=== PATIENT | female | born 1990 | race African-American/Black ===

== ENCOUNTER 2017-04-13 14:56 | Emergency (ER) | payer MEDICAID ==
[2017-04-13] MEDS ORDERED: DIPHENHYDRAMINE HCL 25 MG CAPSULE PO ONE (15:23)
[2017-04-13] MEDS ORDERED: PROCHLORPERAZINE MALEATE 10 MG TABLET PO ONE (15:23)
--- NOTE | 2017-04-13 15:25 | ER Document Report ---
ED Medical Screen (RME) - General Chief Complaint: High Blood Pressure Stated Complaint: HIGH BLOOD PRESSURE Time Seen by Provider: 04/13/17 15:20 Notes: This 26-year-old female patient comes emergency room complaining of elevated blood pressure and right-sided headache. She was started on lisinopril 10 mg daily 2 weeks ago by her primary care provider. She had never been on medication before. At that time her blood pressures were running in the 155 systolic range, since then her pressure has remained in the 150 systolic range despite medication. She also has a right temporal headache for the past 3-4 days. The right temporal headache area is tender to palpate. Posterior cervical muscles are not tender. She states she used to get headaches when she was much younger. I have greeted and performed a rapid initial assessment of this patient. A comprehensive ED assessment and evaluation of the patient, analysis of test results and completion of the medical decision making process will be conducted by additional ED providers. TRAVEL OUTSIDE OF THE [place] IN LAST 30 DAYS: No - Related Data Allergies/Adverse Reactions: amoxicillin Allergy (Verified 04/13/17 15:01) ibuprofen [From Motrin] Allergy (Verified 04/13/17 15:01) Past Medical History Renal/ Medical History: Denies: Hx Peritoneal Dialysis Physical Exam - Vital signs Vitals: Temp Pulse Resp BP Pulse Ox 98.5 F 76 14 148/107 H 100 04/13/17 14:59 04/13/17 14:59 04/13/17 14:59 04/13/17 14:59 04/13/17 14:59 Course - Vital Signs Vital signs: Temp Pulse Resp BP Pulse Ox 98.5 F 76 14 148/107 H 100 04/13/17 14:59 04/13/17 14:59 04/13/17 14:59 04/13/17 14:59 04/13/17 14:59
[2017-04-13] MEDS ORDERED: CLONIDINE HCL 0.1 MG TABLET PO ONE (17:08)
[2017-04-13] MEDS ORDERED: OXYCODONE-ACETAMINOPHEN 5-325 MG TABLET PO ONE (17:08)
[2017-04-13 18:32] VITALS: BP 140/83
--- NOTE | 2017-04-13 18:37 | ER Document Report ---
ED Blood Pressure Problem - General Chief Complaint: High Blood Pressure Stated Complaint: HIGH BLOOD PRESSURE Time Seen by Provider: 04/13/17 15:20 Mode of Arrival: Ambulatory Information source: Patient Notes: [facility] [address] [place] [address] ED Medical Screening (RME) Patient Name: LUCI AVILA Date of : 86 Patient Status: Emergency Emergency Provider: HAILEY BETTS Date: 04/13/17 15:23 Initialization Date: 04/13/17 15:23 ED Medical Screen (RME) - General Chief Complaint: High Blood Pressure Stated Complaint: HIGH BLOOD PRESSURE Time Seen by Provider: 04/13/17 15:20 Notes: This 26-year-old female patient comes emergency room complaining of elevated blood pressure and right-sided headache. She was started on lisinopril 10 mg daily 2 weeks ago by her primary care provider. She had never been on medication before. At that time her blood pressures were running in the 155 systolic range, since then her pressure has remained in the 150 systolic range despite medication. She also has a right temporal headache for the past 3-4 days. The right temporal headache area is tender to palpate. Posterior cervical muscles are not tender. She states she used to get headaches when she was much younger. TRAVEL OUTSIDE OF THE [place] IN LAST 30 DAYS: No - Related Data Allergies/Adverse Reactions: amoxicillin Allergy (Verified 04/13/17 15:01) ibuprofen [From Motrin] Allergy (Verified 04/13/17 15:01) Past Medical History Renal/ Medical History: Denies: Hx Peritoneal Dialysis Physical Exam - Vital signs Vitals: Temp Pulse Resp BP Pulse Ox 98.5 F 76 14 148/107 H 100 04/13/17 14:59 04/13/17 14:59 04/13/17 14:59 04/13/17 14:59 04/13/17 14:59 Course - Vital Signs Vital signs: Temp Pulse Resp BP Pulse Ox 98.5 F 76 14 148/107 H 100 04/13/17 14:59 04/13/17 14:59 04/13/17 14:59 04/13/17 14:59 04/13/17 14:59 TRAVEL OUTSIDE OF THE [place] IN LAST 30 DAYS: No - Related Data Allergies/Adverse Reactions: amoxicillin Allergy (Verified 04/13/17 15:01) ibuprofen [From Motrin] Allergy (Verified 04/13/17 15:01) Home Medications: Current Home Medications Lisinopril 1 tab PO DAILY 04/13/17 [History] Past Medical History - General Information source: Patient - Social History Smoking Status: Never Smoker Cigarette use (# per day): No Chew tobacco use (# tins/day): No Smoking Education Provided: No Frequency of alcohol use: None Drug Abuse: None Lives with: Family Family History: Hypertension - Past Medical History Cardiac Medical History: Reports: Hx Hypertension Past Surgical History: Reports: Hx Section - x4, Hx Tubal Ligation Review of Systems - Review of Systems Constitutional: No symptoms reported EENT: No symptoms reported Cardiovascular: No symptoms reported Respiratory: No symptoms reported Gastrointestinal: No symptoms reported Genitourinary: No symptoms reported Female Genitourinary: No symptoms reported Musculoskeletal: No symptoms reported Skin: No symptoms reported Hematologic/Lymphatic: No symptoms reported Neurological/Psychological: See HPI Physical Exam - Vital signs Vitals: Temp Pulse Resp BP Pulse Ox 98.5 F 76 14 148/107 H 100 04/13/17 14:59 04/13/17 14:59 04/13/17 14:59 04/13/17 14:59 04/13/17 14:59 Interpretation: Hypertensive - General General appearance: Appears well, Alert In distress: Mild - HEENT Head: Normocephalic, Atraumatic, Tenderness - Right lateral frontal and temporal scalp palpation tenderness Eyes: Normal Pupils: PERRL Neck: Normal, Supple, Other - Posterior cervical muscles are not tender to palpate - Respiratory Respiratory status: No respiratory distress Chest palpation: Normal - Cardiovascular Rhythm: Regular Heart sounds: Normal auscultation Murmur: No - Abdominal Inspection: Normal Tenderness: Nontender - Back Back: Normal - Extremities General upper extremity: Normal inspection General lower extremity: Normal inspection - Neurological Neuro grossly intact: Yes - Psychological Associated symptoms: Normal affect, Normal mood - Skin Skin Temperature: Warm Skin Moisture: Dry Skin Color: Normal Course - Re-evaluation Re-evalutation: 04/13/17 18:42 The patient was given Compazine and Benadryl. The blood pressure did not come down and the headache did not improve. She is then given 1 Percocet and clonidine 0.1 mg and the pressure did improve and the headache went away entirely. - Vital Signs Vital signs: Temp Pulse Resp BP Pulse Ox 98.8 F 77 16 140/83 H 98 04/13/17 18:31 04/13/17 18:31 04/13/17 18:31 04/13/17 18:31 04/13/17 18:31 Discharge - Discharge Clinical Impression: Tension type headache Qualifiers: Headache chronicity pattern: acute headache Intractability: not intractable Qualified Code(s): G44.209 - Tension-type headache, unspecified, not intractable High blood pressure Qualifiers: Hypertension type: essential hypertension Qualified Code(s): I10 - Essential ( primary) hypertension Condition: Stable Disposition: HOME, SELF-CARE Additional Instructions: Headache: The physician does not feel that the headache you are experiencing has a serious underlying cause. Most headaches are due to emotional stress, with resultant muscle tension (tension headache). Occasionally, headaches are secondary to changes in the blood vessels of the scalp (vascular headache and migraine headache). Sometimes, a headache is the first symptom of another developing illness, such as a viral infection. You have no evidence of stroke, bleeding, meningitis, or other serious cause of your headache. The treatment of headaches varies with the severity and cause of the pain. Not all headaches need pain shots. In fact, there is evidence that using narcotics for headaches may make them worse in the long run. The physician will determine the therapy that's in your best interest. If you develop a fever, if the headache is different from any you've previously experienced, or if the headache progressively worsens, then call your physician at once or go to the emergency room. Take Tylenol for your headache if needed. Rest today. Take an additional dose of your lisinopril when you get home. Take 2 of the lisinopril every morning and check your blood pressure throughout the day. Follow-up with your doctor this week if the blood pressure remains elevated, otherwise follow-up in the next 7-10 days. RETURN TO THE EMERGENCY ROOM IF ANY NEW OR WORSENING SYMPTOMS.
== END 2017-04-13 18:46 | disposition home or self-care (01) ==
LOC: ER 14:56
DX: I10 Essential (primary) hypertension (principal); G44.209 Tension-type headache, unspecified, not intractable; Z79.899 Other long term (current) drug therapy
CPT/HCPCS: 99283; J3490 ×2; S0183

== ENCOUNTER 2017-05-09 16:29 | Emergency (ER) | payer SELFPAY ==
[2017-05-09] MEDS ORDERED: ASPIRIN 325 MG TABLET PO ONE (16:50)
--- NOTE | 2017-05-09 16:53 | ER Document Report ---
ED Medical Screen (RME) - General Chief Complaint: Chest Pain Stated Complaint: HIGH BLOOD PRESSURE, CHEST PAIN HEADACHE Time Seen by Provider: 05/09/17 16:50 Mode of Arrival: Ambulatory Information source: Patient TRAVEL OUTSIDE OF THE [place] IN LAST 30 DAYS: No - HPI Patient complains to provider of: CP/HTN Onset: This morning - Pt with h/o HTN had elevated BP ealrier today when she had it checked at pharmacy. She went home to lay down and had CP when she woke up - Related Data Allergies/Adverse Reactions: amoxicillin Allergy (Verified 05/09/17 16:33) ibuprofen [From Motrin] Allergy (Verified 05/09/17 16:33) Past Medical History - Past Medical History Cardiac Medical History: Reports: Hx Hypertension Renal/ Medical History: Denies: Hx Peritoneal Dialysis Past Surgical History: Reports: Hx Section - x4, Hx Tubal Ligation Physical Exam - Vital signs Vitals: Temp Pulse Resp BP Pulse Ox 98.5 F 65 18 140/87 H 100 05/09/17 16:33 05/09/17 16:33 05/09/17 16:33 05/09/17 16:33 05/09/17 16:33 Course - Vital Signs Vital signs: Temp Pulse Resp BP Pulse Ox 98.5 F 65 18 140/87 H 100 05/09/17 16:33 05/09/17 16:33 05/09/17 16:33 05/09/17 16:33 05/09/17 16:33
[2017-05-09] MEDS ORDERED: ONDANSETRON 4 MG TAB.RAPDIS PO ONE (17:10)
[2017-05-09 17:29] LABS: ABSOLUTE BASOPHILS # (AUTO) 0.1 10^3/uL (0.0-0.2); ABSOLUTE EOSINOPHILS # (AUTO) 0.7 10^3/uL (0.0-0.6); ABSOLUTE LYMPHOCYTES (AUTO) 2.6 10^3/uL (0.5-4.7); ABSOLUTE MONOCYTES (AUTO) 0.4 10^3/uL (0.1-1.4); ABSOLUTE NEUT (AUTO) 2.4 10^3/uL (1.7-8.2); BASOPHILS % (AUTO) 0.9 % (0-2); EOSINOPHILS % (AUTO) 12.1 % (0-6); HEMATOCRIT 36.1 % (36.0-47.0); HEMOGLOBIN 11.5 g/dL (12.0-15.5); HGB HCT DIFFERENCE -1.6; LYMPHOCYTES % (AUTO) 41.7 % (13-45); MEAN CORPUSCULAR HEMOGLOBIN 23.9 pg (27.0-33.4); MEAN CORPUSCULAR HGB CONC 31.8 g/dL (32.0-36.0); MEAN CORPUSCULAR VOLUME 75 fl (80-97); MONOCYTES % (AUTO) 6.3 % (3-13); RED BLOOD COUNT 4.81 10^6/uL (3.72-5.28); RED CELL DISTRIBUTION WIDTH 18.5 % (11.5-14.0); WHITE BLOOD COUNT 6.1 10^3/uL (4.0-10.5)
[2017-05-09 17:41] LABS: ALANINE AMINOTRANSFERASE 25 U/L (9-52); ALBUMIN 4.3 g/dL (3.5-5.0); ALKALINE PHOSPHATASE 102 U/L (38-126); ANION GAP 12 (5-19); APPEARANCE,URINE CLEAR; ASPARTATE AMINO TRANSFERASE 15 U/L (14-36); BILIRUBIN,DIRECT 0.3 mg/dL (0.0-0.4); BILIRUBIN,TOTAL 0.3 mg/dL (0.2-1.3); BILIRUBIN,URINE NEGATIVE (NEGATIVE); BLOOD UREA NITROGEN 8 mg/dL (7-20); CALCIUM 9.2 mg/dL (8.4-10.2); CARBON DIOXIDE 24 mmol/L (22-30); CHLORIDE 104 mmol/L (98-107); CREATINE KINASE 118 U/L (30-135); CREATININE RESULT 0.79 mg/dL (0.52-1.25); GLUCOSE 87 mg/dL (75-110); GLUCOSE, URINE NEGATIVE (NEGATIVE); KETONES,URINE NEGATIVE (NEGATIVE); LEUKOCYTE ESTERASE,URINE NEGATIVE (NEGATIVE); NITRITE,URINE NEGATIVE (NEGATIVE); POTASSIUM 4.3 mmol/L (3.6-5.0); PROTEIN,URINE 30 mg/dL (NEGATIVE); SODIUM 140.2 mmol/L (137-145); TOTAL PROTEIN 7.2 g/dL (6.3-8.2); URINE SPECIFIC GRAVITY 1.027; UROBILINOGEN,URINE NEGATIVE mg/dL (<2.0)
[2017-05-09 17:56] LABS: CREATINE KINASE MB 0.23 ng/mL (<4.55)
[2017-05-09 18:02] LABS: TROPONIN I < 0.012 ng/mL
--- NOTE | 2017-05-09 18:04 | RADIOLOGY REPORT (SQ) ---
EXAM DESCRIPTION: CHEST PA/LAT COMPLETED DATE/TIME: 05/09/2017 5:27 pm REASON FOR STUDY: CP COMPARISON: None. EXAM PARAMETERS: NUMBER OF VIEWS: two views TECHNIQUE: Digital Frontal and Lateral radiographic views of the chest acquired. RADIATION DOSE: NA LIMITATIONS: The lateral view is mildly over penetrated. FINDINGS: LUNGS AND PLEURA: No opacities, masses or pneumothorax. No pleural effusion. MEDIASTINUM AND HILAR STRUCTURES: No masses or contour abnormalities. HEART AND VASCULAR STRUCTURES: Heart normal size. No evidence for failure. BONES: No acute findings. HARDWARE: None in the chest. OTHER: No other significant finding. IMPRESSION: NO SIGNIFICANT RADIOGRAPHIC FINDING IN THE CHEST. TECHNICAL DOCUMENTATION: JOB ID: [id number] [employer]- All Rights Reserved
--- NOTE | 2017-05-09 18:20 | ER Document Report ---
ED Cardiac - General Chief Complaint: Chest Pain Stated Complaint: HIGH BLOOD PRESSURE, CHEST PAIN HEADACHE Time Seen by Provider: 05/09/17 16:50 Mode of Arrival: Ambulatory Notes: The patient is a 26-year-old female, past medical history high blood pressure, presents with several complaints. She was having a dull frontal headache[facility]. She saw that it was 160/90 and came to the emergency room. She also felt a mild right upper chest wall pain She is taking her 20 mg of lisinopril and has an appointment with her primary care physician in 2 days. The chest pain and headache have resolved on my evaluation. The patient denies shortness of breath, back pain, leg swelling, OCP use, fevers, cough, hemoptysis, numbness, tingling, focal weakness, neck stiffness or blurry vision. TRAVEL OUTSIDE OF THE [place] IN LAST 30 DAYS: No - Related Data Allergies/Adverse Reactions: amoxicillin Allergy (Verified 05/09/17 16:33) ibuprofen [From Motrin] Allergy (Verified 05/09/17 16:33) Past Medical History - General Information source: Patient - Social History Smoking Status: Never Smoker Chew tobacco use (# tins/day): No Frequency of alcohol use: None Drug Abuse: None Family History: Hypertension - Past Medical History Cardiac Medical History: Reports: Hx Hypertension Renal/ Medical History: Denies: Hx Peritoneal Dialysis Past Surgical History: Reports: Hx Section - x4, Hx Tubal Ligation Review of Systems - Review of Systems Notes: REVIEW OF SYSTEMS: CONSTITUTIONAL: -fevers, -chills EENT: -eye pain, -difficulty swallowing, -nasal congestion CARDIOVASCULAR: +chest pain, -syncope. RESPIRATORY: -cough, -SOB GASTROINTESTINAL: -abdominal pain, - nausea, -vomiting, -diarrhea GENITOURINARY: -dysuria, -hematuria MUSCULOSKELETAL: -back pain, -neck pain SKIN: -rash or skin lesions. HEMATOLOGIC: -easy bruising or bleeding. LYMPHATIC: -swollen, enlarged glands. NEUROLOGICAL: -altered mental status or loss of consciousness, +headache, - neurologic symptoms PSYCHIATRIC: -anxiety, -depression. ALL OTHER SYSTEMS REVIEWED AND NEGATIVE. Physical Exam - Vital signs Vitals: Temp Pulse Resp BP Pulse Ox 98.5 F 65 18 140/87 H 100 05/09/17 16:33 05/09/17 16:33 05/09/17 16:33 05/09/17 16:33 05/09/17 16:33 - Notes Notes: PHYSICAL EXAMINATION: GENERAL: Well-appearing, well-nourished and in no acute distress. HEAD: Atraumatic, normocephalic. EYES: Pupils equal round and reactive to light, extraocular movements intact, sclera anicteric, conjunctiva are normal. ENT: nares patent, oropharynx clear without exudates. Moist mucous membranes. NECK: Normal range of motion, supple without lymphadenopathy LUNGS: Breath sounds clear to auscultation bilaterally and equal. No wheezes rales or rhonchi. HEART: Regular rate and rhythm without murmurs ABDOMEN: Soft, nontender, normoactive bowel sounds. No guarding, no rebound. No masses appreciated. EXTREMITIES: Normal range of motion, no pitting or edema. No cyanosis. NEUROLOGICAL: Cranial nerves grossly intact. Normal speech, normal gait. Normal sensory and motor exams. PSYCH: Normal mood, normal affect. SKIN: Warm, Dry, normal turgor, no rashes or lesions noted. Course - Re-evaluation Re-evalutation: Patient appears very well. She is currently asymptomatic at this time and her blood pressure is 140/87. She has an appointment with her primary care physician this week and instructed her to bring in a blood pressure log to discuss if she needs to add any new medications. Her HEART score is 1 and she is PERC negative. Headache does not appear to be consistent with meningitis, ICH or SAH at this time due to benign nature. Given strict return precautions and she understands. - Vital Signs Vital signs: Temp Pulse Resp BP Pulse Ox 98.2 F 61 18 150/94 H 100 05/09/17 18:23 05/09/17 18:23 05/09/17 18:23 05/09/17 18:23 05/09/17 18:23 - Laboratory Result Diagrams: 05/09/17 17:10 05/09/17 17:10 Laboratory results interpreted by me: 05/09/17 05/09/17 17:10 17:10 Hgb 11.5 L MCV 75 L MCH 23.9 L MCHC 31.8 L RDW 18.5 H Seg Neutrophils % 39.0 L Eosinophils % 12.1 H Absolute Eosinophils 0.7 H Urine Protein 30 H - Diagnostic Test Radiology reviewed: Image reviewed, Reports reviewed Radiology results interpreted by me: CXR: NAD - EKG Interpretation by Me EKG shows normal: Sinus rhythm, [place], Intervals, QRS Complexes, ST-T Waves Rate: Normal Discharge - Discharge Clinical Impression: Chest pain Qualifiers: Chest pain type: unspecified Qualified Code(s): R07.9 - Chest pain, unspecified Headache Qualifiers: Headache type: unspecified Headache chronicity pattern: unspecified pattern Intractability: not intractable Qualified Code(s): R51 - Headache Hypertension Qualifiers: Hypertension type: unspecified Qualified Code(s): I10 - Essential (primary) hypertension Condition: Stable Disposition: HOME, SELF-CARE Additional Instructions: CHEST PAIN OF UNCLEAR CAUSE: The exact cause of your chest pain isn't clear. Fortunately, there is no evidence of a dangerous medical condition. Further testing may be required to find the source of the pain. Most often, we find that this pain is coming from the chest wall -- the muscles or rib joints in the chest. But chest pain can come from the lung and lung lining, the esophagus, the heart valves or heart lining, and even the stomach or gallbladder. Rest. Eat lightly until the pain is gone. We may prescribe medicine for pain and inflammation. You should call the physician immediately if the pain radiates to the shoulder, jaw or arms; if you start to run a fever or develop a cough; or if you develop shortness of breath, or other new or alarming symptoms. NORMAL EXAM AND WORKUP: At this time, your examination and workup show no significant abnormality. No significant abnormal physical findings were noted. All laboratory, EKG, and imaging (x-ray, CT scans, ultrasound) studies that were ordered show no significant abnormality. Although your examination and all studies that were ordered showed no significant abnormal finding, there are no examinations and no studies that are 100% accurate. There is always the possibility that some abnormality could exist and not be detected with physical examination or within the limits and capabilities of laboratory and other studies. You should return or follow up as you were instructed on your visit today for further evaluation if your symptoms do not resolve. CHEST WALL PAIN: Your chest pain may be coming from the chest wall. This is often caused by straining the muscles or joints in the chest during physical activity, direct trauma, coughing, or vigorous vomiting. Persons with arthritis are especially prone to this type of pain, due to inflammation of the cartilage joints near the breast bone. Occasionally, no cause can be found. Rest from strenuous physical activity. This kind of chest pain is usually made worse by movement of the chest. Depending on the symptoms, we may prescribe medicine for pain, muscle relaxation, and antiinflammatory effects. If the pain is new, and seems to be due to muscle strain, cold packs can help. Otherwise, apply gentle warmth to the painful area for 15 minutes every hour or two. You should call contact the doctor immediately if things change. Further evaluation is needed if you develop a fever or cough, if the nature of the pain changes, or if you become short of breath. FOLLOW-UP CARE: If you have been referred to a physician for follow-up care, call the physician s office for an appointment as you were instructed or within the next two days. If you experience worsening or a significant change in your symptoms, notify the physician immediately or return to the Emergency Department at any time for re-evaluation. HEADACHE: The physician does not feel that the headache you are experiencing has a serious underlying cause. Most headaches are due to emotional stress, with resultant muscle tension (tension headache). Occasionally, headaches are secondary to changes in the blood vessels of the scalp (vascular headache and migraine headache). Sometimes, a headache is the first symptom of another developing illness, such as a viral infection. You have no evidence of stroke, bleeding, meningitis, or other serious cause of your headache. The treatment of headaches varies with the severity and cause of the pain. Not all headaches need pain shots. In fact, there is evidence that using narcotics for headaches may make them worse in the long run. The physician will determine the therapy that's in your best interest. If you develop a fever, if the headache is different from any you've previously experienced, or if the headache progressively worsens, then call your physician at once or go to the emergency room. FOLLOW-UP CARE: If you have been referred to a physician for follow-up care, call the physician s office for an appointment as you were instructed or within the next two days. If you experience worsening or a significant change in your symptoms, notify the physician immediately or return to the Emergency Department at any time for re-evaluation. Forms: Elevated Blood Pressure Referrals: COTY,RAMONA R, PA-C [Primary Care Provider] - Follow up as needed
[2017-05-09 18:25] VITALS: BP 150/94
--- NOTE | 2017-05-09 20:12 | EKG REPORT ---
SEVERITY:- BORDERLINE ECG - SINUS RHYTHM BORDERLINE T ABNORMALITIES, INFERIOR LEADS : Confirmed by: Hakan Wharton MD 09-May-2017 20:12:06
== END 2017-05-09 18:25 | disposition home or self-care (01) ==
LOC: ER 16:29
DX: R07.9 Chest pain, unspecified (principal); R51 Headache; I10 Essential (primary) hypertension; Z88.0 Allergy status to penicillin; Z98.51 Tubal ligation status
CPT/HCPCS: 93005; 99285; 36415; 82553; 82550; 85025; 81025; 80053; 81001; 84484; 71020; 93010; S0119

== ENCOUNTER 2017-07-16 23:43 | Emergency (ER) | payer MEDICAID ==
[2017-07-17] MEDS ORDERED: LIDOCAINE 2% JELLY 5 ML TUBE TOP ONE (00:22)
[2017-07-17] MEDS ORDERED: DOCUSATE SODIUM 100 MG CAPSULE PO ONE (00:23)
--- NOTE | 2017-07-17 00:24 | ER Document Report ---
ED General - General Chief Complaint: Rectal Pain Stated Complaint: RECTAL PAIN Time Seen by Provider: 07/17/17 00:01 Notes: Patient is a 26-year-old female who presents with rectal pain. Does describe a dull, constant, aching pain to the rectum. Patient states this started after she had a bowel movement. She noted some blood on the toilet paper and when she felt near her anus she states that she felt to bumps that "should not be there". Denies history of similar symptoms in the past. Admits to often straining when having bowel movements. She has not tried anything to improve her pain. She denies any attempt to have a bowel movement or touching area worsens the pain. She has not seen a primary care doctor regarding today's concerns. She denies any significant quantity of bleeding. TRAVEL OUTSIDE OF THE [place] IN LAST 30 DAYS: No - Related Data Allergies/Adverse Reactions: amoxicillin Allergy (Verified 07/16/17 23:53) ibuprofen [From Motrin] Allergy (Verified 07/16/17 23:53) Past Medical History - General Information source: Patient - Social History Smoking Status: Never Smoker Frequency of alcohol use: None Drug Abuse: None Lives with: Spouse/Significant other Family History: Hypertension Patient has suicidal ideation: No Patient has homicidal ideation: No - Past Medical History Cardiac Medical History: Reports: Hx Hypertension Renal/ Medical History: Denies: Hx Peritoneal Dialysis Past Surgical History: Reports: Hx Section - x4, Hx Tubal Ligation Review of Systems - Review of Systems Notes: Constitutional: Negative for fever. HENT: Negative for sore throat. Eyes: Negative for visual changes. Cardiovascular: Negative for chest pain. Respiratory: Negative for shortness of breath. Gastrointestinal: Positive for rectal pain Genitourinary: Negative for dysuria. Musculoskeletal: Negative for back pain. Skin: Negative for rash. Neurological: Negative for headaches, weakness or numbness. 10 point ROS negative except as marked above and in HPI. Physical Exam - Vital signs Vitals: Temp Pulse Resp BP Pulse Ox 97.9 F 77 16 148/86 H 98 07/16/17 23:48 07/16/17 23:48 07/16/17 23:48 07/16/17 23:48 07/16/17 23:48 Interpretation: Normal Notes: PHYSICAL EXAMINATION: GENERAL: Well-appearing, well-nourished and in no acute distress. HEAD: Atraumatic, normocephalic. EYES: sclera anicteric, conjunctiva are normal. ENT: Moist mucous membranes. NECK: Normal range of motion LUNGS: Normal work of breathing HEART: 2+ radial pulses bilaterally Abdominal exam: No focal tenderness or rebound Rectal: 2 external nonthrombosed hemorrhoids without active bleeding EXTREMITIES: no pitting or edema. No cyanosis. NEUROLOGICAL: No focal neurological deficits. Moves all extremities spontaneously and on command. PSYCH: Normal mood, normal affect. SKIN: Warm, Dry, normal turgor, no rashes or lesions noted. Course - Re-evaluation Re-evalutation: 07/17/17 00:23 Presentation is most consistent with uncomplicated external hemorrhoids. No significant bleeding by history. Patient's abdominal exam is otherwise benign. I do not suspect a more significant lower GI bleed or upper GI bleed based on history, vitals, normal hemoglobin, and patient's overall well appearance. The patient will be discharged home on conservative treatment recommendations as well as recommendations for close outpatient follow-up. Return precautions have been reviewed. - Vital Signs Vital signs: Temp Pulse Resp BP Pulse Ox 98.7 F 88 18 114/65 98 07/17/17 00:34 07/17/17 00:34 07/17/17 00:34 07/17/17 00:34 07/17/17 00:34 Discharge - Discharge Clinical Impression: External hemorrhoids Condition: Good Disposition: HOME, SELF-CARE Additional Instructions: You were seen today for hemorrhoids. The best treatment is to avoid straining while having bowel moments, avoiding heavy lifting, or any other activity that causes you to bear down forcefully. You need to make sure that your stools are soft and should start taking Docusate 200mg in the morning and at night until your stools are very soft and you can have a bowel movement without any straining. You can also soak in warm water, apply topical hemorrhoid cream that can be purchased at the store, and take tylenol or ibuprofen per box instructions as needed for pain. Please follow-up with your primary doctor. Return if you begin to have persistent bleeding, worsening pain, abdominal pain , fever >101, or any other symptoms that are concerning to you. Referrals: EVIE AUGUSTIN MD [Primary Care Provider] - Follow up as needed
[2017-07-17 00:35] VITALS: BP 114/65
== END 2017-07-17 00:34 | disposition home or self-care (01) ==
LOC: ER 23:43
DX: K64.4 Residual hemorrhoidal skin tags (principal); K62.89 Other specified diseases of anus and rectum; I10 Essential (primary) hypertension; Z88.0 Allergy status to penicillin; Z88.6 Allergy status to analgesic agent
CPT/HCPCS: 99283; J3490 ×2

== ENCOUNTER 2017-07-30 11:31 | Inpatient (IN) | payer MEDICAID ==
[2017-07-30] MEDS ORDERED: IPRATROPIUM/ALBUTEROL 0.5-2.5 MG/3 ML AMPUL NEB ONE ×2 (12:09→14:57)
[2017-07-30] MEDS ORDERED: PREDNISONE 20 MG TABLET PO ONE (12:09)
[2017-07-30] MEDS ORDERED: ACETAMINOPHEN 325 MG TABLET PO ONE (12:10)
--- NOTE | 2017-07-30 12:11 | ER Document Report ---
HPI - HPI Patient complains to provider of: Cough, difficulty breathing, weakness Onset: Last week Onset/Duration: Worse Quality of pain: Achy Pain Level: 4 Context: Patient presents complaining of nonproductive cough for the past week. Patient states today she developed frontal headache pain with coughing. Patient complains of decreased sleep due to the coughing. Patient also reports anterior chest discomfort with coughing only. Patient denies any chest pain if she is not coughing. Patient denies any history of asthma but states her child does have asthma. Associated Symptoms: Chest pain - With coughing, Nonproductive cough, Headache, Rhinnorhea, Shortness of breath, Weakness. denies: Fever, Nausea, Vomiting Exacerbated by: Coughing Relieved by: Denies Similar symptoms previously: No Recently seen / treated by doctor: No - ROS ROS below otherwise negative: Yes Systems Reviewed and Negative: Yes All other systems reviewed and negative - CONSTITUTIONAL Constitutional: DENIES: Fever - EENT EENT: REPORTS: Nasal Drainage-Clear, Congestion - NEURO Neurology: REPORTS: Headache, Weakness - CARDIOVASCULAR Cardiovascular: REPORTS: Chest pain - RESPIRATORY Respiratory: REPORTS: Trouble Breathing, Coughing - GASTROINTESTINAL Gastrointestinal: DENIES: Abdominal Pain, Nausea, Patient vomiting - MUSCULOSKELETAL Musculoskeletal: DENIES: Extremity pain, Back Pain - DERM Skin Color: Normal Skin Problems: None Past Medical History - General Information source: Patient - Social History Smoking Status: Never Smoker Frequency of alcohol use: None Drug Abuse: None Occupation: None Lives with: Family Family History: Hypertension - Past Medical History Cardiac Medical History: Reports: Hx Hypertension Denies: Hx DVT, Hx Pulmonary Embolism Pulmonary Medical History: Denies: Hx Asthma Renal/ Medical History: Denies: Hx Peritoneal Dialysis Past Surgical History: Reports: Hx Section - x4, Hx Tubal Ligation Vertical Provider Document - CONSTITUTIONAL Agree With Documented VS: Yes Exam Limitations: No Limitations General Appearance: Mild Distress - INFECTION CONTROL TRAVEL OUTSIDE OF THE [place] IN LAST 30 DAYS: No - HEENT HEENT: Atraumatic, Normal ENT Exam, Normocephalic - NECK Neck: Normal Inspection, Supple. negative: Lymphadenopathy-Left, Lymphadenopathy-Right - RESPIRATORY Respiratory: No Respiratory Distress, Wheezing. negative: Chest Non-Tender - Anterior chest wall tenderness only with coughing O2 Sat by Pulse Oximetry: 98 - CARDIOVASCULAR Cardiovascular: Regular Rate, Regular Rhythm, No Murmur - GI/ABDOMEN Gastrointestinal: Abdomen Soft, Abdomen Non-Tender - BACK Back: Normal Inspection - MUSCULOSKELETAL/EXTREMETIES Musculoskeletal/Extremeties: MAEW - NEURO Level of Consciousness: Awake, Alert, Appropriate Motor/Sensory: No Motor Deficit - DERM Integumentary: Warm Course - Re-evaluation Re-evalutation: 07/30/17 15:07 HR 117 97%, 98.7, 148/87, 28. Patient complains of continued cough with wheezing and feeling weak. Patient's resting heart [id number]. Patient was ambulated 20 feet in the hallway in her heart rate increased to the 140s and the patient became dyspneic and complained of increased weakness. Patient returned to room in additional labs and medications ordered. Consulted with Dr. Mcgraw regarding patient presentation, he advises giving patient IV fluids as well as a magnesium and then reevaluated with possible consideration for admission. 07/30/17 16:[address] Day who agrees to accept patient as a telemetry admission - Vital Signs Vital signs: Temp Pulse Resp BP Pulse Ox 99.0 F 106 H 20 138/97 H 98 07/30/17 11:35 07/30/17 11:35 07/30/17 11:35 07/30/17 11:35 07/30/17 11:35 - Laboratory Result Diagrams: 07/30/17 15:36 07/30/17 15:36 Laboratory results interpreted by me: 07/30/17 16:57 Labs- Entire Visit 07/30/17 07/30/17 07/30/17 15:36 15:36 15:36 WBC 10.4 RBC 4.83 Hgb 11.7 L Hct 35.5 L MCV 74 L MCH 24.2 L MCHC 32.9 RDW 17.3 H Plt Count 223 Total Counted 100 Seg Neutrophils % Not Reportable Seg Neuts % (Manual) 92 H Band Neutrophils % 1 L Lymphocytes % Not Reportable Lymphocytes % (Manual) 3 L Monocytes % Not Reportable Monocytes % (Manual) 3 Eosinophils % Not Reportable Eosinophils % (Manual) 0 Basophils % Not Reportable Basophils % (Manual) 1 Absolute Neutrophils Not Reportable Abs Neuts (Manual) 9.7 H Absolute Lymphocytes Not Reportable Abs Lymphs (Manual) 0.3 L Absolute Monocytes Not Reportable Abs Monocytes (Manual) 0.3 Absolute Eosinophils Not Reportable Absolute Eos (Manual) 0.0 Absolute Basophils Not Reportable Abs Basophils (Manual) 0.1 Toxic Granulation SLIGHT Platelet Comment ADEQUATE Hypochromasia 1+ Poikilocytosis SLIGHT Anisocytosis 1+ Microcytosis 1+ Ovalocytes 1+ D-Dimer Sodium 139.9 Potassium 3.3 L Chloride 108 H Carbon Dioxide 18 L Anion Gap 14 BUN 9 Creatinine 0.86 Est GFR ( Amer) > 60 Est GFR (Non-Af Amer) > 60 Glucose 103 Calcium 9.2 Magnesium 1.6 Total Bilirubin 0.3 Direct Bilirubin 0.3 Neonat Total Bilirubin Not Reportable Neonat Direct Bilirubin Not Reportable Neonat Indirect Bili Not Reportable AST 16 ALT 21 Alkaline Phosphatase 102 Total Protein 6.7 Albumin 4.0 Serum HCG, Qual NEGATIVE 07/30/17 15:36 WBC RBC Hgb Hct MCV MCH MCHC RDW Plt Count Total Counted Seg Neutrophils % Seg Neuts % (Manual) Band Neutrophils % Lymphocytes % Lymphocytes % (Manual) Monocytes % Monocytes % (Manual) Eosinophils % Eosinophils % (Manual) Basophils % Basophils % (Manual) Absolute Neutrophils Abs Neuts (Manual) Absolute Lymphocytes Abs Lymphs (Manual) Absolute Monocytes Abs Monocytes (Manual) Absolute Eosinophils Absolute Eos (Manual) Absolute Basophils Abs Basophils (Manual) Toxic Granulation Platelet Comment Hypochromasia Poikilocytosis Anisocytosis Microcytosis Ovalocytes D-Dimer 0.27 Sodium Potassium Chloride Carbon Dioxide Anion Gap BUN Creatinine Est GFR ( Amer) Est GFR (Non-Af Amer) Glucose Calcium Magnesium Total Bilirubin Direct Bilirubin Neonat Total Bilirubin Neonat Direct Bilirubin Neonat Indirect Bili AST ALT Alkaline Phosphatase Total Protein Albumin Serum HCG, Qual - Diagnostic Test Radiology reviewed: Reports reviewed Discharge - Discharge Clinical Impression: Hypokalemia, Tachycardia Upper respiratory infection Qualifiers: URI type: unspecified URI Qualified Code(s): J06.9 - Acute upper respiratory infection, unspecified Dyspnea Qualifiers: Dyspnea type: unspecified Qualified Code(s): R06.00 - Dyspnea, unspecified Disposition: ADMITTED OBSERVATION Admitting Provider: Hospitalist Unit Admitted: Telemetry
[2017-07-30] MEDS: ALBUTEROL SULFATE 0.083% NEB 2.5 MG/3 ML AMPUL NEB SCH ×2 (13:08→13:40)
--- NOTE | 2017-07-30 13:20 | RADIOLOGY REPORT (SQ) ---
EXAM DESCRIPTION: CHEST PA/LAT COMPLETED DATE/TIME: 07/30/2017 1:04 pm REASON FOR STUDY: cough COMPARISON: None. EXAM PARAMETERS: NUMBER OF VIEWS: two views TECHNIQUE: Digital Frontal and Lateral radiographic views of the chest acquired. RADIATION DOSE: NA LIMITATIONS: none FINDINGS: LUNGS AND PLEURA: No opacities, masses or pneumothorax. No pleural effusion. MEDIASTINUM AND HILAR STRUCTURES: No masses or contour abnormalities. HEART AND VASCULAR STRUCTURES: Heart normal size. No evidence for failure. BONES: No acute findings. HARDWARE: None in the chest. OTHER: No other significant finding. IMPRESSION: NO SIGNIFICANT RADIOGRAPHIC FINDING IN THE CHEST. TECHNICAL DOCUMENTATION: JOB ID: [id number] [employer]- All Rights Reserved
--- NOTE | 2017-07-30 13:29 | EKG REPORT ---
SEVERITY:- ABNORMAL ECG - SINUS RHYTHM CONSIDER LEFT VENTRICULAR HYPERTROPHY BORDERLINE T ABNORMALITIES, INFERIOR LEADS : Confirmed by: Hakan Wharton MD 30-Jul-2017 13:28:09
[2017-07-30] MEDS ORDERED: NORMAL SALINE 1000 ML 1,000 ML IV ONE (14:56)
[2017-07-30] MEDS: MAGNESIUM SULFATE/D5W 1 GM/100 ML RTUPB IV SCH ×2 (15:40→16:53)
[2017-07-30] MEDS ORDERED: BENZONATATE 100 MG CAPSULE PO ONE (15:47)
[2017-07-30 16:01] LABS: HEMATOCRIT 35.5 % (36.0-47.0); HEMOGLOBIN 11.7 g/dL (12.0-15.5); HGB HCT DIFFERENCE -0.4; MEAN CORPUSCULAR HEMOGLOBIN 24.2 pg (27.0-33.4); MEAN CORPUSCULAR HGB CONC 32.9 g/dL (32.0-36.0); MEAN CORPUSCULAR VOLUME 74 fl (80-97); RED BLOOD COUNT 4.83 10^6/uL (3.72-5.28); RED CELL DISTRIBUTION WIDTH 17.3 % (11.5-14.0); WHITE BLOOD COUNT 10.4 10^3/uL (4.0-10.5)
[2017-07-30 16:14] LABS: ALANINE AMINOTRANSFERASE 21 U/L (9-52); ALKALINE PHOSPHATASE 102 U/L (38-126); ANION GAP 14 (5-19); ASPARTATE AMINO TRANSFERASE 16 U/L (14-36); BILIRUBIN,DIRECT 0.3 mg/dL (0.0-0.4); BILIRUBIN,TOTAL 0.3 mg/dL (0.2-1.3); BLOOD UREA NITROGEN 9 mg/dL (7-20); CALCIUM 9.2 mg/dL (8.4-10.2); CARBON DIOXIDE 18 mmol/L (22-30); CHLORIDE 108 mmol/L (98-107); CREATININE RESULT 0.86 mg/dL (0.52-1.25); GLUCOSE 103 mg/dL (75-110); MAGNESIUM 1.6 mg/dL (1.6-2.3); POTASSIUM 3.3 mmol/L (3.6-5.0); SODIUM 139.9 mmol/L (137-145); TOTAL PROTEIN 6.7 g/dL (6.3-8.2)
[2017-07-30 16:26] LABS: ANISOCYTOSIS 1+; BAND NEUTROPHILS % (MANUAL) 1 % (3-5); BASOPHILS % (MANUAL) 1 % (0-2); EOSINOPHILS % (MANUAL) 0 % (0-6); HYPOCHROMASIA 1+; LYMPHOCYTES % (MANUAL) 3 % (13-45); MICROCYTOSIS 1+; OVALOCYTES 1+; POIKILOCYTOSIS SLIGHT; TOTAL CELLS COUNTED 100; TOXIC GRANULATION SLIGHT
[2017-07-30] MEDS ORDERED: POTASSIUM CHLORIDE 10 MEQ TABLET.SA PO ONE ×2 (16:52→20:15)
[2017-07-30] MEDS ORDERED: ACETAMINOPHEN 325 MG TABLET PO PRN (17:54)
[2017-07-30 18:00] LABS: APPEARANCE,URINE SLIGHTLY-CLOUDY; BILIRUBIN,URINE NEGATIVE (NEGATIVE); GLUCOSE, URINE NEGATIVE (NEGATIVE); KETONES,URINE 20 mg/dL (NEGATIVE); LEUKOCYTE ESTERASE,URINE NEGATIVE (NEGATIVE); NITRITE,URINE NEGATIVE (NEGATIVE); PROTEIN,URINE NEGATIVE (NEGATIVE); URINE SPECIFIC GRAVITY 1.009; UROBILINOGEN,URINE NEGATIVE mg/dL (<2.0)
[2017-07-30] MEDS ORDERED: ALPRAZOLAM 0.5 MG TABLET PO ONE (18:30)
--- NOTE | 2017-07-30 18:32 | PDOC H&P ---
History of Present Illness Admission Date/PCP: 07/30/17 17:16 Patient complains of: Shortness of breath and wheezing History of Present Illness: LUCI AVILA is a 26 year old female presents to the emergency department from home with a one-week history of dry hacking cough. Today however her symptoms took a turn for the worse, when she awoke she was audibly wheezing and having much more difficulty breathing. She was having hot and cold sweats with chills. She reports sharp, stabbing left calf pain that she felt was a "cramp" with some associated transient swelling in the calf that is now resolved. She reports global dull aching headache it is worse with position and cough and constant and no associated symptoms of numbness, tingling, vision or hearing changes. She reports no sick contacts in spite of 6 children at home everyone is healthy. She does not get vaccinations including flu shot and she has never had influenza before. She does not smoke and she has no history of asthma or childhood asthma. She has no history of chronic infections as a child. She is not on hormone replacement therapy she is undergone a tubal ligation in the past. She underwent 4 previously and did not have any difficulty awakening from anesthesia or extubation after the procedure. she reports no noxious or chemical exposures. she has no reflux, heartburn, GERD symptoms. she denies nocturnal symptoms, night sweats, swollen glands and exposure to TB. She reports starting lisinopril in February of this year at 20 mg for control of her hypertension. She had not previously been treated pharmaceutically for hypertension. There is no family history of clotting disorder or bleeding diathesis. Asthma does run in the family. Evaluation in the emergency department shows her to be tachypneic, tachycardic but without hypoxia. She had audible wheezing that has been difficult to control with nebulizers 4 and prednisone 40 mg. Furthermore she failed to "walk test" she took just a few steps in the hallway and became so breathless and coughing and wheezing again that she had to be helped back to bed. As a result we were asked to admit her for further evaluation and management. EKG shows a sinus tachycardia without prolongation of her QT interval and without ischemic changes. Chest x-ray also looks clear. Past Medical History Cardiac Medical History: Reports: Hypertension Denies: Congestive Heart Failure, Coronary Artery Disease, DVT, Pulmonary Embolism, Heart Murmur Pulmonary Medical History: Denies: Asthma, Sleep Apnea Endocrine Medical History: Denies: None Past Surgical History Past Surgical History: Reports: Section - x4, Tubal Ligation Social History Information Source: Patient Lives with: Family Smoking Status: Never Smoker Frequency of Alcohol Use: None Hx Recreational Drug Use: No Drugs: None Hx Prescription Drug Abuse: No - Advance Directive Resuscitation Status: Full Code Family History Family History: DM, Hypertension, Other - Asthma, clotting disorder, bleeding diathesis Parental Family History Reviewed: Yes Children Family History Reviewed: Yes Sibling(s) Family History Reviewed.: Yes Medication/Allergy Home Medications: Lisinopril 2 tab PO DAILY 04/13/17 Allergies/Adverse Reactions: amoxicillin Allergy (Verified 07/30/17 11:33) ibuprofen [From Motrin] Allergy (Verified 07/30/17 11:33) Review of Systems All systems: reviewed and no additional remarkable complaints except as stated - All systems reviewed, see above, remaining systems negative. Physical Exam Vital Signs: Temp Pulse Resp BP Pulse Ox 98.7 F 114 H 21 H 138/92 H 97 07/30/17 14:50 07/30/17 14:50 07/30/17 17:30 07/30/17 17:30 07/30/17 17:30 General appearance: PRESENT: mild distress, obese, well-developed, well- nourished Head exam: PRESENT: atraumatic, normocephalic Eye exam: PRESENT: EOMI, PERRLA. ABSENT: conjunctival injection, scleral icterus Mouth exam: PRESENT: moist, neck supple, other - No oral lesions Throat exam: ABSENT: post pharyngeal erythema, tonsillar erythema, tonsillar exudate Neck exam: PRESENT: full ROM. ABSENT: carotid bruit, JVD, lymphadenopathy, meningismus, tenderness, tracheal deviation Respiratory exam: PRESENT: accessory muscle use, crackles - Diffuse, tachypnea, wheezes. ABSENT: stridor Cardiovascular exam: PRESENT: RRR, tachycardia. ABSENT: systolic murmur Pulses: PRESENT: normal radial pulses Vascular exam: PRESENT: normal capillary refill GI/Abdominal exam: PRESENT: normal bowel sounds, soft. ABSENT: tenderness Extremities exam: ABSENT: calf tenderness - No palpable cords, pedal edema, tenderness Musculoskeletal exam: PRESENT: ambulatory, full ROM Neurological exam: PRESENT: alert, awake, oriented to person, oriented to place , oriented to time, oriented to situation Psychiatric exam: PRESENT: appropriate affect, normal mood Skin exam: PRESENT: dry, warm Results Laboratory Results: 07/30/17 15:36 07/30/17 15:36 MCV 74 fl (80-97) L 07/30/17 15:36 MCH 24.2 pg (27.0-33.4) L 07/30/17 15:36 MCHC 32.9 g/dL (32.0-36.0) 07/30/17 15:36 RDW 17.3 % (11.5-14.0) H 07/30/17 15:36 Seg Neutrophils % Not Reportable 07/30/17 15:36 Lymphocytes % Not Reportable 07/30/17 15:36 Monocytes % Not Reportable 07/30/17 15:36 Eosinophils % Not Reportable 07/30/17 15:36 Basophils % Not Reportable 07/30/17 15:36 Absolute Neutrophils Not Reportable 07/30/17 15:36 Absolute Lymphocytes Not Reportable 07/30/17 15:36 Absolute Monocytes Not Reportable 07/30/17 15:36 Absolute Eosinophils Not Reportable 07/30/17 15:36 Absolute Basophils Not Reportable 07/30/17 15:36 Chloride 108 mmol/L (98-107) H 07/30/17 15:36 Carbon Dioxide 18 mmol/L (22-30) L 07/30/17 15:36 Anion Gap 14 (5-19) 07/30/17 15:36 Est GFR ( Amer) > 60 (>60) 07/30/17 15:36 Est GFR (Non-Af Amer) > 60 (>60) 07/30/17 15:36 Glucose 103 mg/dL (75-110) 07/30/17 15:36 Calcium 9.2 mg/dL (8.4-10.2) 07/30/17 15:36 Magnesium 1.6 mg/dL (1.6-2.3) 07/30/17 15:36 Total Bilirubin 0.3 mg/dL (0.2-1.3) 07/30/17 15:36 AST 16 U/L (14-36) 07/30/17 15:36 ALT 21 U/L (9-52) 07/30/17 15:36 Alkaline Phosphatase 102 U/L (38-126) 07/30/17 15:36 Total Protein 6.7 g/dL (6.3-8.2) 07/30/17 15:36 Albumin 4.0 g/dL (3.5-5.0) 07/30/17 15:36 Serum HCG, Qual NEGATIVE (NEGATIVE) 07/30/17 15:36 Impressions: Chest X-Ray 07/30/17 12:09 IMPRESSION: NO SIGNIFICANT RADIOGRAPHIC FINDING IN THE CHEST. Status: Image reviewed by me - Agree with radiology Assessment & Plan - Diagnosis (1) Upper respiratory infection Qualifiers: URI type: unspecified URI Qualified Code(s): J06.9 - Acute upper respiratory infection, unspecified Is this a current diagnosis for this admission?: Yes Plan: She is behaving as though she has an atypical pneumonia. Will start her empirically on Zithromax, systemic steroids, continue nebs. I do not like the way she is breathing with hx of sudden change, transient left calf swelling/ pain and in spite of normal ddimer I feel compelled to ck CTA chest to r/o PE; this will also get a look at lung parenchyma for infiltrates, inflammation or other causes of her dysnpea. screen for influenza but she isn't making enough sputum to collect for culture. will send blood cultures. (2) Metabolic acidosis Is this a current diagnosis for this admission?: Yes Plan: likely related to rapid breathing/tachypnea; will send lactic acid and hydrate with IVFs and monitor again in am (3) Microcytic anemia Is this a current diagnosis for this admission?: Yes Plan: likely Fe deficient; will ck iron studies to confirm. no evidence for acute blood loss. (4) Hypokalemia Is this a current diagnosis for this admission?: Yes Plan: replace and monitor. she was given IV mag in ED for her resp status. (5) Tachycardia Is this a current diagnosis for this admission?: Yes Plan: unclear etiology, likely related to the above; treat as noted above and f/u tests ordered. ck BNP and if markedly elevated may need echo at some point though I truly believe the cta chest is going to answer all questions. (6) HTN (hypertension), benign Is this a current diagnosis for this admission?: Yes Plan: elevated right now due to her distress. hold her ACEi due to development of dry hacking cough, treat with amlodopine or chlorthalidone. - Time Time Spent: 50 to 70 Minutes Medications reviewed and adjusted accordingly: Yes - Inpatient Certification Based on my medical assessment, after consideration of the patient's comorbidities, presenting symptoms, or acuity I expect that the services needed warrant INPATIENT care.: Yes I certify that my determination is in accordance with my understanding of Medicare's requirements for reasonable and necessary INPATIENT services [42 CFR 412.3e].: Yes Medical Necessity: Need For IV Fluids, Need For Continuous Telemetry Monitoring , Need for Nebulizer Therapy and Monitoring of Response, Need for IV Antibiotics , Risk of Complication if Not Cared For in Hospital
[2017-07-30] MEDS ORDERED: AZITHROMYCIN 500 MG in DEXTROSE 5%-WATER 250 ML IV ONE (19:00)
[2017-07-30] MEDS: NORMAL SALINE 1000 ML 1,000 ML IV PRN (19:34)
[2017-07-30] MEDS: ALBUTEROL SULFATE 0.083% NEB 2.5 MG/3 ML AMPUL NEB PRN (19:57)
--- NOTE | 2017-07-30 20:12 | RADIOLOGY REPORT (SQ) ---
EXAM DESCRIPTION: CTA CHEST COMPLETED DATE/TIME: 07/30/2017 7:16 pm REASON FOR STUDY: COUGH, CP COMPARISON: None. TECHNIQUE: CT scan of the chest performed using helical scanning technique with dynamic intravenous contrast injection. Images reviewed with lung, soft tissue and bone windows. Reconstructed coronal and sagittal MPR images reviewed. Additional 3 dimensional post-processing performed to develop Maximal Intensity Projection images (NH P). All images stored on PACS. All CT scanners at this facility use dose modulation, iterative reconstruction, and/or weight based d osing when appropriate to reduce radiation dose to as low as reasonably achievable (ALARA). [facility]: Dose Right [facility]: CareDose [facility]: Dose Right [facility]: Teradose 4D [facility]: ShowMe CONTRAST TYPE AND DOSE: contrast/concentration: Isovue 370.00 mg/ml; Total Contrast Delivered: 87.0 ml; Total Saline Delivered: 50.0 ml Contrast bolus optimized for the pulmonary arteries. Not diagnostic for the aorta. RENAL FUNCTION: None required. The patient is less than 50 years old. RADIATION DOSE: . LIMITATIONS: None. FINDINGS: LUNGS AND PLEURA: Tree-in-bud opacities involving the posterior basal segments of the righ t greater than left lower lobes compatible with infectious or inflammatory bronchiolitis. No large c onsolidation, pleural effusion, or pneumothorax. AORTA AND GREAT VESSELS: No aneurysm. Contrast bolus not optimized for the aorta. HEART: No pericardial effusion. No significant coronary artery calcifications. PULMONARY ARTERIES: No emboli visualized in the main pulmonary arteries or the segmental branches. HILAR AND MEDIASTINAL STRUCTURES: No identified masses or abnormal nodes. HARDWARE: None in the chest. UPPER ABDOMEN: No significant findings. Limited exam. THYROID AND OTHER SOFT TISSUES: Apparent right thyroid nodule measuring 2.8 cm. Soft tissues otherwi se normal. BONES: No acute or significant finding. 3D MIPS: Confirm above findings. OTHER: No other significant finding. IMPRESSION: NO PULMONARY EMBOLI. TREE-IN-BUD OPACITIES INVOLVING THE RIGHT GREATER THAN LEFT LOWER LOBES COMPATIBLE WITH INFECTIOUS OR INFLAMMATORY BRONCHIOLITIS. 2.8 CM RIGHT THYROID NODULE. RECOMMEND FURTHER CHARACTERIZATION WITH THYROID ULTRASOUND. COMMENT: Quality ID # [id number]: Final reports with documentation of one or more dose reduction techniques (e.g., Automated exposure control, adjustment of the mA and/or kV according to patient size, use of iterative reconstruction technique) TECHNICAL DOCUMENTATION: JOB ID: [id number] [employer]- All Rights Reserved
[2017-07-30] MEDS: METHYLPREDNISOLONE INJ 40 MG/1 ML SDV IV SCH (21:43)
[2017-07-30] MEDS: AMLODIPINE BESYLATE 10 MG TABLET PO SCH (21:43)
[2017-07-30] MEDS: IPRATROPIUM/ALBUTEROL 0.5-2.5 MG/3 ML AMPUL NEB PRN (22:49)
[2017-07-30] MEDS ORDERED: ONDANSETRON HCL INJ/PF 4 MG/2 ML SDV ONE (23:02)
[2017-07-30] MEDS ORDERED: ONDANSETRON HCL INJ/PF 4 MG/2 ML SDV IV PRN (23:03)
[2017-07-31] MEDS: ALPRAZOLAM 0.5 MG TABLET PO PRN ×2 (03:45→17:46)
[2017-07-31] MEDS: ALBUTEROL SULFATE 0.083% NEB 2.5 MG/3 ML AMPUL NEB PRN ×2 (03:49→22:40)
[2017-07-31] MEDS: METHYLPREDNISOLONE INJ 40 MG/1 ML SDV IV SCH ×3 (05:24→22:22)
[2017-07-31] MEDS: NORMAL SALINE 1000 ML 1,000 ML IV PRN ×2 (05:26→17:47)
[2017-07-31 07:12] LABS: HEMATOCRIT 33.8 % (36.0-47.0); HEMOGLOBIN 11.3 g/dL (12.0-15.5); HGB HCT DIFFERENCE 0.1; MEAN CORPUSCULAR HEMOGLOBIN 24.7 pg (27.0-33.4); MEAN CORPUSCULAR HGB CONC 33.6 g/dL (32.0-36.0); MEAN CORPUSCULAR VOLUME 74 fl (80-97); RED BLOOD COUNT 4.59 10^6/uL (3.72-5.28); RED CELL DISTRIBUTION WIDTH 17.4 % (11.5-14.0); WHITE BLOOD COUNT 8.9 10^3/uL (4.0-10.5)
[2017-07-31 07:30] LABS: ANION GAP 11 (5-19); BLOOD UREA NITROGEN 5 mg/dL (7-20); CALCIUM 8.9 mg/dL (8.4-10.2); CARBON DIOXIDE 20 mmol/L (22-30); CHLORIDE 108 mmol/L (98-107); CREATININE RESULT 0.67 mg/dL (0.52-1.25); GLUCOSE 121 mg/dL (75-110); MAGNESIUM 2.1 mg/dL (1.6-2.3); SODIUM 139.1 mmol/L (137-145)
[2017-07-31 08:26] LABS: ANISOCYTOSIS 2+; BASOPHILS % (MANUAL) 0 % (0-2); EOSINOPHILS % (MANUAL) 0 % (0-6); HYPOCHROMASIA SLIGHT; LYMPHOCYTES % (MANUAL) 7 % (13-45); OVALOCYTES SLIGHT; POIKILOCYTOSIS SLIGHT; TOTAL CELLS COUNTED 100
[2017-07-31 08:35] LABS: FOLATE 9.24 ng/mL (>2.76)
[2017-07-31 08:47] LABS: POTASSIUM 4.5 mmol/L (3.6-5.0)
[2017-07-31] MEDS: AZITHROMYCIN 500 MG in DEXTROSE 5%-WATER 250 ML IV SCH (09:42)
[2017-07-31] MEDS: IPRATROPIUM/ALBUTEROL 0.5-2.5 MG/3 ML AMPUL NEB PRN ×2 (09:48→17:25)
--- NOTE | 2017-07-31 17:57 | PDOC PROGRESS REPORT ---
Subjective Progress Note for:: 07/31/17 Subjective:: This is a follow-up for acute respiratory failure. The patient feels much better and her breathing today. Reason For Visit: ATYPICAL PNEUMONIA Physical Exam Vital Signs: Temp Pulse Resp BP Pulse Ox 98.3 F 83 20 132/74 H 100 07/31/17 15:56 07/31/17 15:56 07/31/17 15:56 07/31/17 15:56 07/31/17 15:56 Intake & Output 07/30/17 07/31/17 08/01/17 06:59 06:59 06:59 Intake Total 1240 1300 Output Total 300 Balance 940 1300 Weight 94.1 kg GENERAL: This is a well-developed well-nourished overweight -[place] female resting in bed currently in no acute distress. HEART: Regular rate and rhythm. No murmurs, rubs or gallops. LUNGS: Diminished at the bases bilaterally with rare right lower lung crackles with equal rise and fall of the chest. ABDOMEN: Soft, nontender, nondistended with normoactive bowel sounds EXTREMETIES: No clubbing, cyanosis or edema. 2+ peripheral pulses bilaterally. NEURO: Awake, alert and oriented 3. Cranial nerves II through XII are grossly intact. Results Laboratory Results: 07/31/17 06:30 07/31/17 06:30 07/30/17 07/30/17 07/30/17 17:32 18:45 21:16 WBC RBC Hgb Hct MCV MCH MCHC RDW Plt Count Seg Neutrophils % Lymphocytes % Monocytes % Eosinophils % Basophils % Absolute Neutrophils Absolute Lymphocytes Absolute Monocytes Absolute Eosinophils Absolute Basophils Sodium Potassium Chloride Carbon Dioxide Anion Gap BUN Creatinine Est GFR ( Amer) Est GFR (Non-Af Amer) Glucose Lactic Acid 3.2 H Calcium Magnesium 2.0 Iron TIBC % Saturation Vitamin B12 Folate Urine Color YELLOW Urine Appearance SLIGHTLY-CLOUDY Urine pH 6.0 Ur Specific [place] 1.009 Urine Protein NEGATIVE Urine Glucose (UA) NEGATIVE Urine Ketones 20 H Urine Blood NEGATIVE Urine Nitrite NEGATIVE Ur Leukocyte Esterase NEGATIVE Urine WBC (Auto) 2 Urine RBC (Auto) 1 07/31/17 07/31/17 06:30 06:30 WBC 8.9 RBC 4.59 Hgb 11.3 L Hct 33.8 L MCV 74 L MCH 24.7 L MCHC 33.6 RDW 17.4 H Plt Count 240 Seg Neutrophils % Not Reportable Lymphocytes % Not Reportable Monocytes % Not Reportable Eosinophils % Not Reportable Basophils % Not Reportable Absolute Neutrophils Not Reportable Absolute Lymphocytes Not Reportable Absolute Monocytes Not Reportable Absolute Eosinophils Not Reportable Absolute Basophils Not Reportable Sodium 139.1 Potassium 4.5 D Chloride 108 H Carbon Dioxide 20 L Anion Gap 11 BUN 5 L Creatinine 0.67 Est GFR ( Amer) > 60 Est GFR (Non-Af Amer) > 60 Glucose 121 H Lactic Acid Calcium 8.9 Magnesium 2.1 Iron 11.7 L TIBC 410 % Saturation 3 Vitamin B12 625.0 Folate 9.24 Urine Color Urine Appearance Urine pH Ur Specific [place] Urine Protein Urine Glucose (UA) Urine Ketones Urine Blood Urine Nitrite Ur Leukocyte Esterase Urine WBC (Auto) Urine RBC (Auto) Impressions: Chest/Abdomen CTA 07/30/17 00:00 IMPRESSION: NO PULMONARY EMBOLI. TREE-IN-BUD OPACITIES INVOLVING THE RIGHT GREATER THAN LEFT LOWER LOBES COMPATIBLE WITH INFECTIOUS OR INFLAMMATORY BRONCHIOLITIS. 2.8 CM RIGHT THYROID NODULE. RECOMMEND FURTHER CHARACTERIZATION WITH THYROID ULTRASOUND. Chest X-Ray 07/30/17 12:09 IMPRESSION: NO SIGNIFICANT RADIOGRAPHIC FINDING IN THE CHEST. Assessment & Plan - Diagnosis (1) Dyspnea Qualifiers: Dyspnea type: unspecified Qualified Code(s): R06.00 - Dyspnea, unspecified Plan: Likely due to upper respiratory infection. Patient has no documented low sats. She is currently on oxygen and satting well. (2) HTN (hypertension), benign Is this a current diagnosis for this admission?: Yes Plan: Continue current medicines (3) Hypokalemia Is this a current diagnosis for this admission?: Yes Plan: Replaced and resolved. (4) Metabolic acidosis Is this a current diagnosis for this admission?: Yes Plan: Repeat lactic acid in the morning. (5) Microcytic anemia Is this a current diagnosis for this admission?: Yes (6) Upper respiratory infection Qualifiers: URI type: unspecified URI Qualified Code(s): J06.9 - Acute upper respiratory infection, unspecified Is this a current diagnosis for this admission?: Yes Plan: Patient is on empiric antibiotics. This is probably not unreasonable. Continue azithromycin. Continue Solu-Medrol at a decreased frequency of every 12. - Time Time Spent with patient: 15-24 minutes
--- NOTE | 2017-07-31 22:04 | RADIOLOGY REPORT (SQ) ---
EXAM DESCRIPTION: U/S THYROID/SFT TISS HD NECK COMPLETED DATE/TIME: 07/31/2017 9:46 pm REASON FOR STUDY: thyroid nodule COMPARISON: CT chest 07/30/2017 TECHNIQUE: Dynamic and static headley-scale images acquired of the thyroid gland. Selected additional c olor/power Doppler images recorded. All images stored to PACS. LIMITATIONS: None. FINDINGS: Thyroid is diffusely enlarged. There is a dominant complex nodule in the lower pole right lobe thyroid measuring 3 cm in diameter. This is along the lower pole thyroid, developed cold to completely included in the field of view abe use of the medial clavicle and thoracic inlet. Aspiration of this lesion is recommended. Overall, the right lobe thyroid measures at least 6 x 4 x 3 cm in size. Left lobe thyroid 5 x 4 x 2.2 cm in size. Isthmus 6 mm in thickness. IMPRESSION: Dominant mass right lower pole thyroid. Given the patient's age, fine-needle aspirate o f this is recommended TECHNICAL DOCUMENTATION: JOB ID: [id number] [employer]- All Rights Reserved
[2017-07-31] MEDS: AMLODIPINE BESYLATE 10 MG TABLET PO SCH (22:22)
[2017-08-01 05:56] LABS: ABSOLUTE LYMPHOCYTES (AUTO) 0.7 10^3/uL (0.5-4.7); ABSOLUTE MONOCYTES (AUTO) 0.5 10^3/uL (0.1-1.4); ABSOLUTE NEUT (AUTO) 8.3 10^3/uL (1.7-8.2); BASOPHILS % (AUTO) 0.1 % (0-2); HEMATOCRIT 35.4 % (36.0-47.0); HEMOGLOBIN 11.4 g/dL (12.0-15.5); HGB HCT DIFFERENCE -1.2; LYMPHOCYTES % (AUTO) 7.2 % (13-45); MEAN CORPUSCULAR HEMOGLOBIN 23.9 pg (27.0-33.4); MEAN CORPUSCULAR HGB CONC 32.3 g/dL (32.0-36.0); MEAN CORPUSCULAR VOLUME 74 fl (80-97); MONOCYTES % (AUTO) 5.1 % (3-13); RED BLOOD COUNT 4.78 10^6/uL (3.72-5.28); RED CELL DISTRIBUTION WIDTH 17.5 % (11.5-14.0); SEGMENTED NEUTROPHILS % (AUTO) 87.6 % (42-78); WHITE BLOOD COUNT 9.4 10^3/uL (4.0-10.5)
[2017-08-01 06:27] LABS: ANION GAP 10 (5-19); BLOOD UREA NITROGEN 6 mg/dL (7-20); CALCIUM 8.9 mg/dL (8.4-10.2); CARBON DIOXIDE 23 mmol/L (22-30); CHLORIDE 107 mmol/L (98-107); CREATININE RESULT 0.69 mg/dL (0.52-1.25); GLUCOSE 103 mg/dL (75-110); POTASSIUM 4.4 mmol/L (3.6-5.0); SODIUM 139.8 mmol/L (137-145)
[2017-08-01] MEDS: NORMAL SALINE 1000 ML 1,000 ML IV PRN ×2 (06:58→22:12)
[2017-08-01] MEDS: IPRATROPIUM/ALBUTEROL 0.5-2.5 MG/3 ML AMPUL NEB PRN (09:48)
[2017-08-01] MEDS: METHYLPREDNISOLONE INJ 40 MG/1 ML SDV IV SCH ×2 (11:01→22:13)
[2017-08-01] MEDS: AZITHROMYCIN 500 MG in DEXTROSE 5%-WATER 250 ML IV SCH (11:02)
--- NOTE | 2017-08-01 12:55 | PDOC PROGRESS REPORT ---
Subjective Progress Note for:: 08/01/17 Subjective:: Pt states that she has been short of breath for 2-3 weeks. Pt states that her breathing is better but she becomes very short of breath with exertion. Pt states that multiple family members have Asthma but she has never been diagnosed with asthma. Reason For Visit: ATYPICAL PNEUMONIA Physical Exam Vital Signs: Temp Pulse Resp BP Pulse Ox 97.8 F 66 21 H 133/86 H 100 08/01/17 07:32 08/01/17 09:48 08/01/17 09:48 08/01/17 07:32 08/01/17 07:32 Intake & Output 07/31/17 08/01/17 08/02/17 06:59 06:59 06:59 Intake Total 1240 3258 Output Total 300 300 Balance 940 2958 Weight 94.1 kg 94.1 kg General appearance: PRESENT: no acute distress, well-developed, well-nourished Head exam: PRESENT: atraumatic, normocephalic Eye exam: PRESENT: conjunctiva pink, EOMI, PERRLA. ABSENT: scleral icterus Ear exam: PRESENT: normal external ear exam Mouth exam: PRESENT: moist, tongue midline Neck exam: ABSENT: carotid bruit, JVD, lymphadenopathy, thyromegaly Respiratory exam: PRESENT: other - Prolonged Exp phase, + Wheezing, + prolonged Exp phase. Cardiovascular exam: PRESENT: RRR. ABSENT: diastolic murmur, rubs, systolic murmur Pulses: PRESENT: normal dorsalis pedis pul Vascular exam: PRESENT: normal capillary refill GI/Abdominal exam: PRESENT: normal bowel sounds, soft. ABSENT: distended, guarding, mass, organolmegaly, rebound, tenderness Rectal exam: PRESENT: deferred Extremities exam: PRESENT: full ROM. ABSENT: calf tenderness, clubbing, pedal edema Neurological exam: PRESENT: alert, awake, oriented to person, oriented to place , oriented to time, oriented to situation, CN II-XII grossly intact. ABSENT: motor sensory deficit Psychiatric exam: PRESENT: appropriate affect, normal mood. ABSENT: homicidal ideation, suicidal ideation Skin exam: PRESENT: dry, intact, warm. ABSENT: cyanosis, rash Results Laboratory Results: 08/01/17 05:12 08/01/17 05:12 12/02/17 12/02/17 12/02/17 05:12 05:12 05:12 WBC 9.4 RBC 4.78 Hgb 11.4 L Hct 35.4 L MCV 74 L MCH 23.9 L MCHC 32.3 RDW 17.5 H Plt Count 256 Seg Neutrophils % 87.6 H Lymphocytes % 7.2 L Monocytes % 5.1 Eosinophils % 0.0 Basophils % 0.1 Absolute Neutrophils 8.3 H Absolute Lymphocytes 0.7 Absolute Monocytes 0.5 Absolute Eosinophils 0.0 Absolute Basophils 0.0 Sodium 139.8 Potassium 4.4 Chloride 107 Carbon Dioxide 23 Anion Gap 10 BUN 6 L Creatinine 0.69 Est GFR ( Amer) > 60 Est GFR (Non-Af Amer) > 60 Glucose 103 Calcium 8.9 Magnesium 2.0 TSH 0.05 L Impressions: Chest/Abdomen CTA 07/30/17 00:00 IMPRESSION: NO PULMONARY EMBOLI. TREE-IN-BUD OPACITIES INVOLVING THE RIGHT GREATER THAN LEFT LOWER LOBES COMPATIBLE WITH INFECTIOUS OR INFLAMMATORY BRONCHIOLITIS. 2.8 CM RIGHT THYROID NODULE. RECOMMEND FURTHER CHARACTERIZATION WITH THYROID ULTRASOUND. Chest X-Ray 07/30/17 12:09 IMPRESSION: NO SIGNIFICANT RADIOGRAPHIC FINDING IN THE CHEST. Thyroid Ultrasound 07/31/17 00:00 IMPRESSION: Dominant mass right lower pole thyroid. Given the patient's age, fine-needle aspirate of this is recommended Assessment & Plan - Diagnosis (1) Acute respiratory failure Is this a current diagnosis for this admission?: Yes Plan: Secondary for Suspected Asthma Exacerbation: Will change albuterol Q4, steroids , and antibiotics. Will add Levaquin. (2) Reactive airway disease with wheezing Is this a current diagnosis for this admission?: Yes Plan: Suspect Asthma Exacerbation: Will continue breathing treatments, antibiotics, and steroids. (3) Dyspnea Qualifiers: Dyspnea type: unspecified Qualified Code(s): R06.00 - Dyspnea, unspecified Is this a current diagnosis for this admission?: Yes Plan: Secondary to Suspected Asthma Exacerbation: Steroids, albuterol, and antibiotics. (4) HTN (hypertension), benign Is this a current diagnosis for this admission?: Yes Plan: Will continue current treatment. - Time Time Spent with patient: 15-24 minutes
[2017-08-01] MEDS ORDERED: LEVOFLOXACIN 500 MG TABLET PO ONE ×2 (13:00→16:30)
[2017-08-01] MEDS: IPRATROPIUM/ALBUTEROL 0.5-2.5 MG/3 ML AMPUL NEB SCH ×2 (13:59→20:18)
[2017-08-01] MEDS: ALPRAZOLAM 0.5 MG TABLET PO PRN (20:51)
[2017-08-01] MEDS: AMLODIPINE BESYLATE 10 MG TABLET PO SCH (22:13)
[2017-08-02] MEDS: IPRATROPIUM/ALBUTEROL 0.5-2.5 MG/3 ML AMPUL NEB SCH ×3 (02:32→14:00)
[2017-08-02 05:13] LABS: ABSOLUTE LYMPHOCYTES (AUTO) 1.1 10^3/uL (0.5-4.7); ABSOLUTE MONOCYTES (AUTO) 0.3 10^3/uL (0.1-1.4); ABSOLUTE NEUT (AUTO) 7.5 10^3/uL (1.7-8.2); BASOPHILS % (AUTO) 0.3 % (0-2); EOSINOPHILS % (AUTO) 0.2 % (0-6); HEMATOCRIT 36.3 % (36.0-47.0); HGB HCT DIFFERENCE -0.3; LYMPHOCYTES % (AUTO) 12.6 % (13-45); MEAN CORPUSCULAR HEMOGLOBIN 24.3 pg (27.0-33.4); MEAN CORPUSCULAR VOLUME 74 fl (80-97); MONOCYTES % (AUTO) 3.4 % (3-13); RED BLOOD COUNT 4.92 10^6/uL (3.72-5.28); RED CELL DISTRIBUTION WIDTH 18.1 % (11.5-14.0); SEGMENTED NEUTROPHILS % (AUTO) 83.5 % (42-78)
[2017-08-02 08:00] LABS: ALANINE AMINOTRANSFERASE 28 U/L (9-52); ALBUMIN 3.6 g/dL (3.5-5.0); ALKALINE PHOSPHATASE 75 U/L (38-126); ANION GAP 10 (5-19); ASPARTATE AMINO TRANSFERASE 15 U/L (14-36); BILIRUBIN,DIRECT 0.3 mg/dL (0.0-0.4); BILIRUBIN,TOTAL 0.3 mg/dL (0.2-1.3); BLOOD UREA NITROGEN 8 mg/dL (7-20); CALCIUM 9.1 mg/dL (8.4-10.2); CARBON DIOXIDE 24 mmol/L (22-30); CHLORIDE 104 mmol/L (98-107); GLUCOSE 102 mg/dL (75-110); POTASSIUM 4.3 mmol/L (3.6-5.0); SODIUM 138.4 mmol/L (137-145); TOTAL PROTEIN 6.4 g/dL (6.3-8.2)
[2017-08-02] MEDS ORDERED: LEVOFLOXACIN 500 MG TABLET PO SCH (10:00)
[2017-08-02] MEDS: AZITHROMYCIN 500 MG in DEXTROSE 5%-WATER 250 ML IV SCH (10:10)
[2017-08-02] MEDS: METHYLPREDNISOLONE INJ 40 MG/1 ML SDV IV SCH (10:10)
[2017-08-02] MEDS ORDERED: GUAIFENESIN SYRP 200 MG/10 ML UDC PO PRN (11:56)
[2017-08-02 17:48] VITALS: BP 146/93
--- NOTE | 2017-08-02 18:46 | PDOC DISCHARGE SUMMARY ---
General - Admit/Disc Date/PCP Admission Date/Primary Care Provider: 07/30/17 17:16 - Discharge Diagnosis (1) Dyspnea Is this a current diagnosis for this admission?: Yes Summary: Resolved. Patient did not have acute respiratory failure as she never dropped her O2 sats. (2) HTN (hypertension), benign Is this a current diagnosis for this admission?: Yes Summary: Continue lisinopril and now Norvasc. (3) Hypokalemia Is this a current diagnosis for this admission?: Yes Summary: Replaced and resolved. (4) Metabolic acidosis Is this a current diagnosis for this admission?: Yes Summary: Resolved (5) Microcytic anemia Is this a current diagnosis for this admission?: Yes Summary: Stable (6) Upper respiratory infection Is this a current diagnosis for this admission?: Yes Summary: Finish antibiotics. (7) Reactive airway disease with wheezing Is this a current diagnosis for this admission?: Yes Summary: Continue steroid taper. Continue Levaquin to completion. Follow-up with PCP. - Additional Information Resuscitation Status: Full Code Discharge Diet: As Tolerated Discharge Activity: Activity As Tolerated, Balance Activity w/Rest Home Medications: Lisinopril 2 tab PO DAILY 04/13/17 Amlodipine Besylate [Norvasc 10 mg Tablet] 10 mg PO QHS #30 tablet 08/02/17 Ipratropium/Albuterol Sulfate [Combivent Inhaler] 14.7 gm IH QID #1 aer.w.adap 08/02/17 Levofloxacin [Levaquin 500 mg Tablet] 500 mg PO DAILY #3 tablet 08/02/17 Prednisone 20 mg PO ASDIR PRN #15 tablet 08/02/17 History of Present Illness History of Present Illness: LUCI AVILA is a 26 year old -[place] female with no past medical history who presented to the service with upper respiratory infection and likely acute asthma. Please see the HPI as dictated by the admitting physician. Admission Date/PCP: 07/30/17 17:16 Patient complains of: Shortness of breath and wheezing History of Present Illness: LUCI AVILA is a 26 year old female presents to the emergency department from home with a one-week history of dry hacking cough. Today however her symptoms took a turn for the worse, when she awoke she was audibly wheezing and having much more difficulty breathing. She was having hot and cold sweats with chills. She reports sharp, stabbing left calf pain that she felt was a "cramp" with some associated transient swelling in the calf that is now resolved. She reports global dull aching headache it is worse with position and cough and constant and no associated symptoms of numbness, tingling, vision or hearing changes. She reports no sick contacts in spite of 6 children at home everyone is healthy. She does not get vaccinations including flu shot and she has never had influenza before. She does not smoke and she has no history of asthma or childhood asthma. She has no history of chronic infections as a child. She is not on hormone replacement therapy she is undergone a tubal ligation in the past. She underwent 4 previously and did not have any difficulty awakening from anesthesia or extubation after the procedure. she reports no noxious or chemical exposures. she has no reflux, heartburn, GERD symptoms. she denies nocturnal symptoms, night sweats, swollen glands and exposure to TB. She reports starting lisinopril in February of this year at 20 mg for control of her hypertension. She had not previously been treated pharmaceutically for hypertension. There is no family history of clotting disorder or bleeding diathesis. Asthma does run in the family. Evaluation in the emergency department shows her to be tachypneic, tachycardic but without hypoxia. She had audible wheezing that has been difficult to control with nebulizers 4 and prednisone 40 mg. Furthermore she failed to "walk test" she took just a few steps in the hallway and became so breathless and coughing and wheezing again that she had to be helped back to bed. As a result we were asked to admit her for further evaluation and management. EKG shows a sinus tachycardia without prolongation of her QT interval and without ischemic changes. Chest x-ray also looks clear. Hospital Course Hospital Course: Patient was admitted to the hospital and started on Solu-Medrol. She was also started on antibiotics. She was maintained on oxygen therapy. She was felt to have reactive airways disease in the setting of an upper respiratory infection. No july pneumonia. Prior to discharge the patient was able to ambulate the halls satting at 100% on room air. Physical Exam Vital Signs: Temp Pulse Resp BP Pulse Ox 98.3 F 107 H 20 146/93 H 100 08/02/17 17:44 08/02/17 17:44 08/02/17 17:44 08/02/17 17:44 08/02/17 17:44 Intake & Output 08/01/17 08/02/17 08/03/17 06:59 06:59 06:59 Intake Total 3258 3766 Output Total 300 2750 Balance 2958 1016 Weight 94.1 kg 94.1 kg GENERAL: This is a well-developed well-nourished overweight -[place] female resting in bed currently in no acute distress. HEART: Regular rate and rhythm. No murmurs, rubs or gallops. LUNGS: Diminished at the bases bilaterally with equal rise and fall of the chest. Patient is able to speak in full sentences. She does have a hacking cough at bedside. ABDOMEN: Soft, nontender, nondistended with normoactive bowel sounds EXTREMETIES: No clubbing, cyanosis or edema. 2+ peripheral pulses bilaterally. NEURO: Awake, alert and oriented 3. Cranial nerves II through XII are grossly intact. Results Laboratory Results: 08/02/17 05:03 08/02/17 05:43 08/02/17 08/02/17 08/02/17 05:03 05:03 05:43 WBC 9.0 RBC 4.92 Hgb 12.0 Hct 36.3 MCV 74 L MCH 24.3 L MCHC 33.0 RDW 18.1 H Plt Count 266 Seg Neutrophils % 83.5 H Lymphocytes % 12.6 L Monocytes % 3.4 Eosinophils % 0.2 Basophils % 0.3 Absolute Neutrophils 7.5 Absolute Lymphocytes 1.1 Absolute Monocytes 0.3 Absolute Eosinophils 0.0 Absolute Basophils 0.0 Sodium Cancelled 138.4 Potassium Cancelled 4.3 Chloride Cancelled 104 Carbon Dioxide Cancelled 24 Anion Gap Cancelled 10 BUN Cancelled 8 Creatinine Cancelled 0.70 Est GFR ( Amer) Cancelled > 60 Est GFR (Non-Af Amer) Cancelled > 60 Glucose Cancelled 102 Calcium Cancelled 9.1 Total Bilirubin Cancelled 0.3 AST Cancelled 15 ALT Cancelled 28 Alkaline Phosphatase Cancelled 75 Total Protein Cancelled 6.4 Albumin Cancelled 3.6 Impressions: Chest/Abdomen CTA 07/30/17 00:00 IMPRESSION: NO PULMONARY EMBOLI. TREE-IN-BUD OPACITIES INVOLVING THE RIGHT GREATER THAN LEFT LOWER LOBES COMPATIBLE WITH INFECTIOUS OR INFLAMMATORY BRONCHIOLITIS. 2.8 CM RIGHT THYROID NODULE. RECOMMEND FURTHER CHARACTERIZATION WITH THYROID ULTRASOUND. Chest X-Ray 07/30/17 12:09 IMPRESSION: NO SIGNIFICANT RADIOGRAPHIC FINDING IN THE CHEST. Thyroid Ultrasound 07/31/17 00:00 IMPRESSION: Dominant mass right lower pole thyroid. Given the patient's age, fine-needle aspirate of this is recommended Qualifiers [place] BEING DISCHARGED WITH ANY OF THE FOLLOWING DIAGNOSIS?: No Plan Time Spent: Less than 30 Minutes
== END 2017-08-02 18:17 | disposition home or self-care (01) | DRG 153 ==
LOC: ER 11:31 → OBSVTOIN 17:16 → EH 17:16 → 4N 20:30
PROVIDERS: ADMIT Internal Medicine; ATTEND Internal Medicine
PROC: 3E0F73Z Introduction of Anti-inflammatory into Respiratory Tract, Via Natural or Artificial Opening (ICD-10-PCS; principal; 2017-07-30)
DX: J06.9 Acute upper respiratory infection, unspecified (principal); E87.2 Acidosis; J45.901 Unspecified asthma with (acute) exacerbation; J45.909 Unspecified asthma, uncomplicated; E87.6 Hypokalemia; I10 Essential (primary) hypertension; D50.9 Iron deficiency anemia, unspecified; R00.0 Tachycardia, unspecified; E66.3 Overweight; R06.00 Dyspnea, unspecified; Z79.899 Other long term (current) drug therapy; Z98.51 Tubal ligation status; Z83.3 Family history of diabetes mellitus; Z82.49 Family history of ischemic heart disease and other diseases of the circulatory system; Z82.5 Family history of asthma and other chronic lower respiratory diseases; Z88.6 Allergy status to analgesic agent; Z88.0 Allergy status to penicillin; Z68.34 Body mass index [BMI] 34.0-34.9, adult
CPT/HCPCS: 36415; 71020; 71275; 76536; 80048; 80053; 81001; 82607; 82746; 83540; 83550; 83605; 83735; 83880; 84443; 84703; 85025; 85379; 87040; 87804; 93005; 93010; 94640; 96365; 96366; 96367; 99285; J0456; J2405; J2920; J3475; J7030; J7060; J7512; J7620

== ENCOUNTER 2017-08-12 12:33 | Emergency (ER) | payer MEDICAID ==
--- NOTE | 2017-08-12 13:35 | ER Document Report ---
ED General - General Chief Complaint: Swelling Stated Complaint: SWELLING Time Seen by Provider: 08/12/17 13:33 Mode of Arrival: Ambulatory Information source: Patient Notes: Patient states that she noticed last evening her feet were swelling bilaterally. She now states that she feels that her hands are also swollen bilaterally and that her face feels "tight". She denies any other symptoms or problems. Nothing makes them better or worse. They are constant. There is no radiation of symptoms. She states she has never had previous swelling similar to this. She has no new medications or exposures. No swelling of the tongue or throat. No trouble breathing or swallowing. TRAVEL OUTSIDE OF THE [place] IN LAST 30 DAYS: No - Related Data Allergies/Adverse Reactions: amoxicillin Allergy (Verified 08/12/17 13:15) ibuprofen [From Motrin] Allergy (Verified 08/12/17 13:15) Past Medical History - General Information source: Patient - Social History Smoking Status: Never Smoker Chew tobacco use (# tins/day): No Frequency of alcohol use: None Drug Abuse: None Family History: Hypertension Patient has suicidal ideation: No Patient has homicidal ideation: No - Past Medical History Cardiac Medical History: Reports: Hx Hypertension Denies: Hx Congestive Heart Failure, Hx Coronary Artery Disease, Hx DVT, Hx Pulmonary Embolism, Hx Heart Murmur Pulmonary Medical History: Denies: Hx Asthma, Hx Sleep Apnea Renal/ Medical History: Denies: Hx Peritoneal Dialysis Psychiatric Medical History: Reports: Hx Depression Past Surgical History: Reports: Hx Section - x4, Hx Tubal Ligation Review of Systems - Review of Systems Constitutional: denies: Chills, Fever Cardiovascular: denies: Chest pain, Palpitations Respiratory: denies: Cough, Short of breath -: Yes All other systems reviewed and negative Physical Exam - Vital signs Vitals: Temp Pulse Resp BP Pulse Ox 98.8 F 75 14 128/91 H 99 08/12/17 12:39 08/12/17 12:39 08/12/17 12:39 08/12/17 12:39 08/12/17 12:39 Course - Vital Signs Vital signs: Temp Pulse Resp BP Pulse Ox 98.8 F 75 14 128/91 H 99 08/12/17 12:39 08/12/17 12:39 08/12/17 12:39 08/12/17 12:39 08/12/17 12:39 - Laboratory Result Diagrams: 08/12/17 13:50 08/12/17 13:50 Laboratory results interpreted by me: 08/12/17 13:50 WBC 11.7 H Hgb 10.3 L Hct 32.1 L MCV 74 L MCH 23.8 L RDW 17.9 H Lymphocytes % 47.3 H Absolute Lymphocytes 5.5 H Discharge - Discharge Clinical Impression: Pedal edema Condition: Stable Disposition: HOME, SELF-CARE Instructions: Edema, Peripheral ([facility]) Additional Instructions: Your blood pressure is mildly elevated. Please have this rechecked within 1 week by your doctor. Forms: Elevated Blood Pressure, Return to Work Referrals: MUKUND RAMIREZ MD [COMMUNITY BASED STAFF] - Follow up in 1 week
[2017-08-12 14:08] LABS: ABSOLUTE BASOPHILS # (AUTO) 0.1 10^3/uL (0.0-0.2); ABSOLUTE EOSINOPHILS # (AUTO) 0.4 10^3/uL (0.0-0.6); ABSOLUTE LYMPHOCYTES (AUTO) 5.5 10^3/uL (0.5-4.7); ABSOLUTE MONOCYTES (AUTO) 0.8 10^3/uL (0.1-1.4); ABSOLUTE NEUT (AUTO) 4.9 10^3/uL (1.7-8.2); BASOPHILS % (AUTO) 0.5 % (0-2); EOSINOPHILS % (AUTO) 3.6 % (0-6); HEMATOCRIT 32.1 % (36.0-47.0); HEMOGLOBIN 10.3 g/dL (12.0-15.5); HGB HCT DIFFERENCE -1.2; LYMPHOCYTES % (AUTO) 47.3 % (13-45); MEAN CORPUSCULAR HEMOGLOBIN 23.8 pg (27.0-33.4); MEAN CORPUSCULAR HGB CONC 32.2 g/dL (32.0-36.0); MEAN CORPUSCULAR VOLUME 74 fl (80-97); MONOCYTES % (AUTO) 6.6 % (3-13); RED BLOOD COUNT 4.33 10^6/uL (3.72-5.28); RED CELL DISTRIBUTION WIDTH 17.9 % (11.5-14.0); WHITE BLOOD COUNT 11.7 10^3/uL (4.0-10.5)
[2017-08-12 14:13] LABS: APPEARANCE,URINE SLIGHTLY-CLOUDY; BILIRUBIN,URINE NEGATIVE (NEGATIVE); GLUCOSE, URINE NEGATIVE (NEGATIVE); KETONES,URINE NEGATIVE (NEGATIVE); LEUKOCYTE ESTERASE,URINE NEGATIVE (NEGATIVE); NITRITE,URINE NEGATIVE (NEGATIVE); PROTEIN,URINE NEGATIVE (NEGATIVE); URINE SPECIFIC GRAVITY 1.016; UROBILINOGEN,URINE NEGATIVE mg/dL (<2.0)
[2017-08-12 14:34] LABS: ANION GAP 6 (5-19); BLOOD UREA NITROGEN 11 mg/dL (7-20); CALCIUM 8.5 mg/dL (8.4-10.2); CARBON DIOXIDE 28 mmol/L (22-30); CHLORIDE 106 mmol/L (98-107); CREATININE RESULT 0.85 mg/dL (0.52-1.25); GLUCOSE 80 mg/dL (75-110); POTASSIUM 3.6 mmol/L (3.6-5.0); SODIUM 140.4 mmol/L (137-145)
[2017-08-12 17:39] VITALS: BP 140/82
== END 2017-08-12 14:27 | disposition home or self-care (01) ==
LOC: ER 12:33
DX: R60.0 Localized edema (principal); M79.89 Other specified soft tissue disorders
CPT/HCPCS: 36415; 80048; 81001; 81025; 85025; 99284

== ENCOUNTER 2017-08-23 20:24 | Emergency (ER) | payer MEDICAID ==
[2017-08-23] MEDS ORDERED: KETOROLAC TROMETHAMINE INJ/PF 30 MG/1 ML SDV IV ONE (21:00)
[2017-08-23] MEDS ORDERED: PROCHLORPERAZINE EDISYLATE INJ 10 MG/2 ML VIAL IM ONE (21:00)
[2017-08-23] MEDS ORDERED: DIPHENHYDRAMINE HCL 50 MG/ML VIAL IV ONE (21:00)
[2017-08-23] MEDS ORDERED: NORMAL SALINE 1000 ML 1,000 ML IV ONE (21:01)
--- NOTE | 2017-08-23 21:20 | ER Document Report ---
ED Headache - General Chief Complaint: Headache Stated Complaint: HEADACHE Time Seen by Provider: 08/23/17 21:00 Mode of Arrival: Ambulatory Information source: Patient Notes: 26-year-old female presents to ED for headache with nausea and vomiting. TRAVEL OUTSIDE OF THE [place] IN LAST 30 DAYS: No - HPI Patient complains to provider of: "Migraine" Patient reports: Hx chronic headaches Onset: This afternoon Onset was: Gradual Timing: Still present Quality of pain: Sharp, Throbbing Severity: Severe Pain Level: 5 Associated symptoms: Nausea/vomiting, Other - Headache Exacerbated by: Light, Noise, Movement, Position Similar symptoms previously: Yes Recently seen / treated by doctor: No - Related Data Allergies/Adverse Reactions: amoxicillin Allergy (Verified 08/23/17 20:25) ibuprofen [From Motrin] Allergy (Verified 08/23/17 20:25) Past Medical History - General Information source: Patient - Social History Smoking Status: Never Smoker Cigarette use (# per day): No Chew tobacco use (# tins/day): No Smoking Education Provided: No Frequency of alcohol use: None Drug Abuse: None Lives with: Family Family History: Hypertension. denies: Arthritis, CAD, COPD, CVA, DM, Hyperlipidemia, Malignancy, Thyroid Disfunction Patient has suicidal ideation: No Patient has homicidal ideation: No - Past Medical History Cardiac Medical History: Reports: Hx Hypertension Pulmonary Medical History: Reports: None EENT Medical History: Reports: None Neurological Medical History: Reports: Hx Migraine Endocrine Medical History: Reports: None Renal/ Medical History: Reports: None Malignancy Medical History: Reports: None GI Medical History: Reports: None Musculoskeltal Medical History: Reports None Skin Medical History: Reports None Psychiatric Medical History: Reports: Hx Depression Traumatic Medical History: Reports: None Infectious Medical History: Reports: None Past Surgical History: Reports: Hx Section - x4, Hx Tubal Ligation Review of Systems - Review of Systems Constitutional: No symptoms reported EENT: Nose discharge, Sinus pressure Cardiovascular: No symptoms reported Respiratory: No symptoms reported Gastrointestinal: Nausea, Vomiting. denies: Abdominal pain Genitourinary: No symptoms reported Female Genitourinary: No symptoms reported Musculoskeletal: No symptoms reported Skin: No symptoms reported Hematologic/Lymphatic: No symptoms reported Neurological/Psychological: Headaches -: Yes All other systems reviewed and negative Physical Exam - Vital signs Vitals: Temp Pulse BP Pulse Ox 98.4 F 95 129/79 H 99 08/23/17 20:32 08/23/17 20:32 08/23/17 20:32 08/23/17 20:32 Interpretation: Normal - General General appearance: Appears well, Alert - HEENT Head: Normocephalic, Atraumatic Eyes: Normal Pupils: PERRL Ears: Normal External canal: Normal Tympanic membrane: Normal Sinus: Normal Nasal: Purulent discharge, Swelling Mouth/Lips: Normal Mucous membranes: Normal Pharynx: Normal Neck: Normal - Respiratory Respiratory status: No respiratory distress Chest status: Nontender Breath sounds: Normal Chest palpation: Normal - Cardiovascular Rhythm: Regular Heart sounds: Normal auscultation Murmur: No - Abdominal Inspection: Normal Distension: No distension Bowel sounds: Normal Tenderness: Nontender Organomegaly: No organomegaly - Back Back: Normal, Nontender - Extremities General upper extremity: Normal inspection, Nontender, Normal color, Normal ROM , Normal temperature General lower extremity: Normal inspection, Nontender, Normal color, Normal ROM , Normal temperature, Normal weight bearing. No: Jessica's sign - Neurological Neuro grossly intact: Yes Cognition: Normal Orientation: AAOx4 [place] Coma Scale Eye Opening: Spontaneous [place] Coma Scale Verbal: Oriented Monty Coma Scale Motor: Obeys Commands Monty Coma Scale Total: 15 Speech: Normal Cranial nerves: Normal Cerebellar coordination: Normal Motor strength normal: LUE, RUE, LLE, RLE Additional motor exam normals: Equal terrazzo mechanic Sensory: Normal - Psychological Associated symptoms: Normal affect, Normal mood - Skin Skin Temperature: Warm Skin Moisture: Dry Skin Color: Normal Course - Re-evaluation Re-evalutation: 08/23/17 21:20 Patient able to walk with a steady gait speak in full sentences pupils equal and reactive to light. Patient states she has a history of migraines. Light does bother her eyes. Patient will be treated with Toradol Compazine Benadryl IV with a liter of IV fluids. Patient states she is not allergic to Toradol she has had it in the past for headaches. 08/23/17 22:20 Patient states her headache is much better and she is ready to go home. She was sent home with a prescription for Compazine to take with Benadryl for migraine at home. Patient to follow-up with her primary doctor. - Vital Signs Vital signs: Temp Pulse Resp BP Pulse Ox 98.4 F 95 129/79 H 99 08/23/17 20:32 08/23/17 20:32 08/23/17 20:32 08/23/17 20:32 Discharge - Discharge Clinical Impression: HTN (hypertension), benign Headache Qualifiers: Headache type: unspecified Headache chronicity pattern: unspecified pattern Intractability: not intractable Qualified Code(s): R51 - Headache Nausea and vomiting Qualifiers: Vomiting type: unspecified Vomiting Intractability: non-intractable Qualified Code(s): R11.2 - Nausea with vomiting, unspecified Condition: Stable Disposition: HOME, SELF-CARE Instructions: Family Physicians / Practices Additional Instructions: HEADACHE: The physician does not feel that the headache you are experiencing has a serious underlying cause. Most headaches are due to emotional stress, with resultant muscle tension (tension headache). Occasionally, headaches are secondary to changes in the blood vessels of the scalp (vascular headache and migraine headache). Sometimes, a headache is the first symptom of another developing illness, such as a viral infection. You have no evidence of stroke, bleeding, meningitis, or other serious cause of your headache. The treatment of headaches varies with the severity and cause of the pain. Not all headaches need pain shots. In fact, there is evidence that using narcotics for headaches may make them worse in the long run. The physician will determine the therapy that's in your best interest. If you develop a fever, if the headache is different from any you've previously experienced, or if the headache progressively worsens, then call your physician at once or go to the emergency room. Nausea or Vomiting, Nonspecific Vomiting (or nausea without vomiting) can be caused by many different problems. Of course, it can mean that something's wrong with the stomach, such as "stomach flu," ulcers, or inflammation. But it can also be a symptom of a problem that has nothing to do with the stomach or intestines. Vomiting is common with severe headaches, earaches, and tonsillitis. We see it with pneumonia or heart attacks. Drugs can cause nausea. Many abdominal problems cause vomiting; for example, gallstones, kidney stones, pancreatitis, and intestinal obstruction (blocked bowels). In most cases, curing the vomiting depends on fixing the problem that caused it. For temporary relief, we may use an anti-nausea medicine. For home use, we can prescribe suppositories, chewable pills, pills that dissolve in the mouth, or liquid anti-nausea drugs. If the vomiting seems to be caused by a problem in the stomach, acid-suppressing drugs may be prescribed as well. It's important to avoid dehydration. Sip clear liquids. Take increasing amounts of fluid over the first 24 hours. Then start small amounts of bland foods (such as dry toast, applesauce, mashed potato). Avoid aspirin, tobacco, and alcohol. Gradually resume your usual diet. If the vomiting worsens, if the problem that's making you vomit worsens, or if there's evidence of bleeding in the stomach (such as black, tarry stool, bloody or black vomit, or lightheadedness), you should return immediately. Call your doctor if you aren't improved in 24 to 36 hours. USE OF DIPHENHYDRAMINE: Diphenhydramine (Benadryl) is an antihistamine and has been recommended to help treat your headache and to prevent side effects of other medications used to treat headaches. The medication can be repeated four times daily. Age Elixir (12.5 mg/tsp) 25 mg pill adult 1-2 tabs Antihistamines may cause drowsiness, especially with the first dose. Do not operate machinery or drive while under the effects of the medication. Do not combine the medication with alcohol, or with any other medication without talking to your doctor. ANTINAUSEA MEDICATION: You have been given a medication to suppress nausea and vomiting. This type of medication can be given as a shot, pill, or suppository. It will usually last for many hours. Pills and shots usually last six to eight hours, suppositories last about 12 hours. For the typical illness, only one or two doses of the medication may be necessary. Mild lightheadedness may occur. This type of medicine can cause drowsiness. Do not drive or operate dangerous machinery while under its influence. Do not mix with alcohol. See your doctor at once if you have muscle spasms or tightness, or uncontrollable motions (particularly of the neck, mouth, or jaw). Persistent vomiting or severe lightheadedness should also be evaluated by the physician. INTRAVENOUS COMPAZINE FOR HEADACHE: You have received therapy for headaches, using intravenous Compazine. This treatment is dramatically successful in relieving the headache in about 50 percent of cases. When it works, it provides a rapid method of eliminating the headache without resorting to narcotics (and the problems associated with them). Most patients still feel fully alert after the Compazine, but others may be slightly drowsy. It's best not to drive or work with machinery for six to eight hours. Do not take alcohol or other medication unless you discuss it with the doctor. If you develop tightness and spasms in your muscles, especially the neck and tongue, you should return. This is a side effect which can be treated. TORADOL INJECTION: You have been given an injection of ketorolac tromethamine (Toradol). This is an excellent, safe drug for pain control. It also has potent antiinflammatory action. You should have significant pain relief within about one hour. Toradol is not addicting and is non-sedating. It does not interfere with driving or work. Call or return if you develop itching, hives, shortness of breath, or rash. FOLLOW-UP CARE: If you have been referred to a physician for follow-up care, call the physician s office for an appointment as you were instructed or within the next two days. If you experience worsening or a significant change in your symptoms, notify the physician immediately or return to the Emergency Department at any time for re-evaluation. Prescriptions: Prochlorperazine Maleate [Compazine 10 mg Tablet] 10 mg PO ASDIR PRN #10 tablet PRN Reason: Forms: Elevated Blood Pressure
[2017-08-23 22:21] VITALS: BP 130/62
== END 2017-08-23 22:25 | disposition home or self-care (01) ==
LOC: ER 20:24
DX: I10 Essential (primary) hypertension (principal); R51 Headache; R11.2 Nausea with vomiting, unspecified
CPT/HCPCS: 99283; 96372; 96361; 96374; 96375; J1200; J1885; J0780; J7030

== ENCOUNTER 2017-09-14 09:53 | Emergency (ER) | payer MEDICAID ==
[2017-09-14] MEDS ORDERED: FLUTICASONE NASAL SPRAY 50 MCG/SPRY 120 SPRAY/16 GM NASL ONE (10:43)
[2017-09-14] MEDS ORDERED: LORATADINE 10 MG TABLET PO ONE (10:43)
[2017-09-14] MEDS ORDERED: LISINOPRIL 10 MG TABLET PO ONE (10:43)
--- NOTE | 2017-09-14 10:59 | ER Document Report ---
ED Flu Like - General Chief Complaint: Cough Stated Complaint: COUGH Time Seen by Provider: 09/14/17 10:29 Mode of Arrival: Ambulatory Information source: Patient Notes: 26-year-old female presents to ED for cough 2 weeks with green drainage postnasal drip and a headache. She has a history of blood pressure problems and did not take her blood pressure medicine this morning. She states she has had a frontal headache nausea vomiting chills. She had one episode of diarrhea. She states she has been coughing a lot. She states she had pneumonia about a month or so ago. TRAVEL OUTSIDE OF THE [place] IN LAST 30 DAYS: No - HPI Timing/Duration: Intermittent Quality of pain: Achy, Cramping Severity: Severe Pain Level: 5 Associated symptoms: Body/muscle aches, Chills, Productive cough, Headache, Nausea, Vomiting, Rhinnorhea, Sinus pain/drainage Similar symptoms previously: Yes Recently seen / treated by doctor: Yes - Related Data Allergies/Adverse Reactions: amoxicillin Allergy (Verified 08/23/17 20:25) ibuprofen [From Motrin] Allergy (Verified 08/23/17 20:25) Past Medical History - General Information source: Patient - Social History Smoking Status: Never Smoker Cigarette use (# per day): No Chew tobacco use (# tins/day): No Smoking Education Provided: No Frequency of alcohol use: None Drug Abuse: None Lives with: Family Family History: Hypertension. denies: Arthritis, CAD, COPD, CVA, DM, Hyperlipidemia, Malignancy, Thyroid Disfunction Patient has suicidal ideation: No Patient has homicidal ideation: No - Past Medical History Cardiac Medical History: Reports: Hx Hypertension Pulmonary Medical History: Reports: Hx Asthma, Hx Pneumonia EENT Medical History: Reports: None Neurological Medical History: Reports: Hx Migraine Endocrine Medical History: Reports: Hx Hypothyroidism Renal/ Medical History: Reports: None Malignancy Medical History: Reports: None GI Medical History: Reports: None Musculoskeltal Medical History: Reports None Skin Medical History: Reports None Psychiatric Medical History: Reports: Hx Depression Traumatic Medical History: Reports: None Infectious Medical History: Reports: None Past Surgical History: Reports: Hx Section - x4, Hx Tubal Ligation Review of Systems - Review of Systems Constitutional: No symptoms reported EENT: No symptoms reported Cardiovascular: No symptoms reported Respiratory: No symptoms reported Gastrointestinal: No symptoms reported Genitourinary: No symptoms reported Female Genitourinary: No symptoms reported Musculoskeletal: No symptoms reported Skin: No symptoms reported Hematologic/Lymphatic: No symptoms reported Neurological/Psychological: No symptoms reported Physical Exam - Vital signs Vitals: Temp Pulse Resp BP Pulse Ox 98.8 F 101 H 18 145/93 H 98 09/14/17 10:01 09/14/17 10:01 09/14/17 10:01 09/14/17 10:01 09/14/17 10:01 Interpretation: Normal - General General appearance: Appears well, Alert - HEENT Head: Normocephalic, Atraumatic Eyes: Normal Pupils: PERRL Ears: Normal External canal: Normal Tympanic membrane: Normal Sinus: Frontal, Tenderness Nasal: Purulent discharge, Swelling Mouth/Lips: Normal Mucous membranes: Normal Pharynx: Post nasal drainage Neck: Normal - Respiratory Respiratory status: No respiratory distress Chest status: Nontender Breath sounds: Normal, Productive cough. No: Rales, Rhonchi, Stridor, Wheezing Chest palpation: Normal - Cardiovascular Rhythm: Regular Heart sounds: Normal auscultation Murmur: No - Abdominal Inspection: Normal Distension: No distension Bowel sounds: Normal Tenderness: Nontender Organomegaly: No organomegaly - Back Back: Normal, Nontender - Extremities General upper extremity: Normal inspection, Nontender, Normal color, Normal ROM , Normal temperature General lower extremity: Normal inspection, Nontender, Normal color, Normal ROM , Normal temperature, Normal weight bearing. No: Jessica's sign - Neurological Neuro grossly intact: Yes Cognition: Normal Orientation: AAOx4 [place] Coma Scale Eye Opening: Spontaneous Monty Coma Scale Verbal: Oriented Monty Coma Scale Motor: Obeys Commands Monty Coma Scale Total: 15 Speech: Normal Motor strength normal: LUE, RUE, LLE, RLE Sensory: Normal - Psychological Associated symptoms: Normal affect, Normal mood - Skin Skin Temperature: Warm Skin Moisture: Dry Skin Color: Normal Course - Re-evaluation Re-evalutation: 09/14/17 11:46 Patient treated with Claritin Tylenol Flonase Zofran and lisinopril. She was sent for a chest x-ray and a flu test will be done. We will reevaluate afterwards. 09/14/17 13:06 Chest x-ray and flu tests were negative. Patient given instructions on upper respiratory infection headaches and blood pressure. - Vital Signs Vital signs: Temp Pulse Resp BP Pulse Ox 97.9 F 68 16 127/86 H 95 09/14/17 12:42 09/14/17 12:42 09/14/17 12:42 09/14/17 12:42 09/14/17 12:42 - Diagnostic Test Radiology reviewed: Image reviewed, Reports reviewed Discharge - Discharge Clinical Impression: Upper respiratory infection Qualifiers: URI type: unspecified URI Qualified Code(s): J06.9 - Acute upper respiratory infection, unspecified HTN (hypertension) Qualifiers: Hypertension type: unspecified Qualified Code(s): I10 - Essential (primary) hypertension Condition: Stable Disposition: HOME, SELF-CARE Additional Instructions: High Blood Pressure When your blood pressure was taken today it was elevated. Today's reading was____145/93 . Pre-hypertension/Hypertension: The patient has been informed that they may have pre-hypertension or Hypertension based on a blood pressure reading in the emergency department. I recommend that the patient call the primary care provider listed on their discharge instructions or a physician of their choice this wee to arrange follow up for further evaluation of possible pre- hypertension or Hypertension. Sometimes, stress or illness causes a temporary elevation of your blood pressure. We suggest that you get your blood pressure measured three more times during the next few days to see if this is more than a temporary abnormality. If your blood pressure is greater than 150/90 on each occasion, you must have treatment. Some simple things you can do to help are: If you have blood pressure medicine but aren't using it regularly, start taking it again. Get some aerobic exercise for at least 20 minutes on a daily basis. (See your doctor before beginning a new exercise program.) Eat a low-fat diet. Lose excess weight. Avoid salty foods and avoid adding salt to any of the foods you eat. Avoid diet pills, decongestants, "energizing" herbs, and other medicines that elevate blood pressure. If left untreated, hypertension greatly enhances your risk for developing heart disease and strokes. Please don't ignore this problem. UPPER RESPIRATORY ILLNESS: You have a viral infection of the respiratory passages -- a "cold." This common infection causes nasal congestion, drainage, and often sore throat and cough. It is highly contagious. The disease usually lasts about 10 to 14 days. There is no "cure" for the viral infection -- it must run its course. If there is a complication, such as bacterial infection in the nose, sinuses, middle ear, or bronchial tubes, antibiotics may be required. The antibiotics won't affect the virus. Drink plenty of fluids. A humidifier may help. An expectorant medication or decongestant may make you more comfortable. Use acetaminophen or ibuprofen for fever or aches. See the doctor if fever persists over two days, if there is any significant worsening of your symptoms, or if you simply fail to improve as expected. COUGH-SUPPRESSANT & EXPECTORANT MEDICATION: You are to use a cough medication as needed for relief of symptoms. This medicine is a combination of an expectorant (to make the mucous thinner and more easily "coughed up") and a cough suppressant (to reduce the frequency of coughing). The cough-suppressant medicine is related to narcotics. You may experience mild nausea and sleepiness. Some patients who are very sensitive to narcotics may have stomach pain from this medicine. Taking the medicine with food reduces these side effects. Do not drive or work with machinery until you know how this medicine affects you. The expectorant should have no side effects. Iodine-containing expectorants (such as organidin) should not be taken by persons with active thyroid disease unless approved by your doctor. Call the doctor if you develop shortness of breath, hives, rash, itching, lightheadedness, or severe nausea and vomiting. USE OF ACETAMINOPHEN (Tylenol): Acetaminophen may be taken for pain relief or fever control. It's much safer than aspirin, offering a wider range of "safe" dosages. It is safe during . Some brand names are Tylenol, Panadol, Datril, Anacin 3, Tempra, and Liquiprin. Acetaminophen can be repeated every four hours. The following are maximum recommended dosages: >89 pounds or adults 650 mg to 900 mg Acetaminophen can be repeated every four hours. Maximum dose not to exceed 4000 mg a day. You were given Claritin and Flonase in the emergency room for your upper respiratory infection. She was given a dose of your lisinopril for your blood pressure you were given Zofran and Tylenol for your headache. FOLLOW-UP CARE: If you have been referred to a physician for follow-up care, call the physician s office for an appointment as you were instructed or within the next two days. If you experience worsening or a significant change in your symptoms, notify the physician immediately or return to the Emergency Department at any time for re-evaluation. Prescriptions: Prochlorperazine Maleate [Compazine 10 mg Tablet] 10 mg PO Q6HP PRN #10 tablet PRN Reason: Forms: Elevated Blood Pressure Referrals: FAITH CARREON MD [Primary Care Provider] - Follow up as needed
[2017-09-14] MEDS ORDERED: ONDANSETRON 4 MG TAB.RAPDIS PO ONE (11:10)
[2017-09-14] MEDS ORDERED: ACETAMINOPHEN 325 MG TABLET PO ONE (11:10)
[2017-09-14 11:42] LABS: A TYPE INFLUENZA AG NEGATIVE (NEGATIVE); B INFLUENZA AG NEGATIVE (NEGATIVE)
--- NOTE | 2017-09-14 11:53 | RADIOLOGY REPORT (SQ) ---
EXAM DESCRIPTION: CHEST PA/LAT COMPLETED DATE/TIME: 09/14/2017 11:46 am REASON FOR STUDY: cough congested COMPARISON: 07/30/2017 EXAM PARAMETERS: NUMBER OF VIEWS: two views TECHNIQUE: Digital Frontal and Lateral radiographic views of the chest acquired. RADIATION DOSE: NA LIMITATIONS: none FINDINGS: LUNGS AND PLEURA: No opacities, masses or pneumothorax. No pleural effusion. MEDIASTINUM AND HILAR STRUCTURES: No masses or contour abnormalities. HEART AND VASCULAR STRUCTURES: Heart normal size. No evidence for failure. BONES: No acute findings. HARDWARE: None in the chest. OTHER: No other significant finding. IMPRESSION: NO SIGNIFICANT RADIOGRAPHIC FINDING IN THE CHEST. TECHNICAL DOCUMENTATION: JOB ID: [id number] [employer]- All Rights Reserved
[2017-09-14 12:59] VITALS: BP 127/86
== END 2017-09-14 13:01 | disposition home or self-care (01) ==
LOC: ER 09:53
DX: J06.9 Acute upper respiratory infection, unspecified (principal); I10 Essential (primary) hypertension; R05 Cough; R09.82 Postnasal drip; R51 Headache; R11.2 Nausea with vomiting, unspecified; R68.83 Chills (without fever); R19.7 Diarrhea, unspecified; M79.1 Myalgia; J34.89 Other specified disorders of nose and nasal sinuses; J45.909 Unspecified asthma, uncomplicated; Z87.01 Personal history of pneumonia (recurrent); Z88.0 Allergy status to penicillin; Z88.6 Allergy status to analgesic agent
CPT/HCPCS: 99284; 87804; 71046; J3490 ×4; S0119

== ENCOUNTER 2017-09-16 15:31 | Observation (INO) | payer MEDICAID ==
[2017-09-16] MEDS ORDERED: PREDNISONE 20 MG TABLET PO ONE (16:39)
[2017-09-16] MEDS ORDERED: IPRATROPIUM/ALBUTEROL 0.5-2.5 MG/3 ML AMPUL NEB ONE ×3 (16:39→21:23)
[2017-09-16] MEDS ORDERED: ALBUTEROL SULFATE 0.083% NEB 2.5 MG/3 ML AMPUL NEB ONE (16:44)
--- NOTE | 2017-09-16 16:44 | ER Document Report ---
ED Medical Screen (RME) - General Chief Complaint: Breathing Difficulty Stated Complaint: SHORTNESS OF BREATH Time Seen by Provider: 09/16/17 16:32 Notes: This 26-year-old female patient was seen in emergency room 2 days ago for cough for the past 2 weeks. She had negative flu test and a negative chest x-ray. She was discharged with a nasal steroid spray and antihistamine recommendations. She reports since then she has become quite short of breath, coughing a lot more, and has significant dyspnea on exertion. Exam shows diffuse wheezes and rhonchi, retractions, anemia and tachycardia. I have greeted and performed a rapid initial assessment of this patient. A comprehensive ED assessment and evaluation of the patient, analysis of test results and completion of the medical decision making process will be conducted by additional ED providers. TRAVEL OUTSIDE OF THE [place] IN LAST 30 DAYS: No - Related Data Allergies/Adverse Reactions: amoxicillin Allergy (Verified 09/16/17 16:17) ibuprofen [From Motrin] Allergy (Verified 09/16/17 16:17) Past Medical History - Social History Chew tobacco use (# tins/day): No Frequency of alcohol use: None Drug Abuse: None - Past Medical History Cardiac Medical History: Reports: Hx Hypertension Pulmonary Medical History: Reports: Hx Asthma, Hx Pneumonia Neurological Medical History: Reports: Hx Migraine Endocrine Medical History: Reports: Hx Hypothyroidism Renal/ Medical History: Denies: Hx Peritoneal Dialysis Psychiatric Medical History: Reports: Hx Depression Past Surgical History: Reports: Hx Section - x4, Hx Tubal Ligation - Immunizations History of Influenza Vaccine for 05/2017 - 10/2017 Season: Refused Physical Exam - Vital signs Vitals: Temp Pulse Resp BP Pulse Ox 99.5 F 115 H 26 H 137/90 H 98 09/16/17 15:37 09/16/17 15:37 09/16/17 15:37 09/16/17 15:37 09/16/17 15:37 Course - Vital Signs Vital signs: Temp Pulse Resp BP Pulse Ox 99.5 F 115 H 26 H 137/90 H 98 09/16/17 15:37 09/16/17 15:37 09/16/17 15:37 09/16/17 15:37 09/16/17 15:37
--- NOTE | 2017-09-16 17:23 | RADIOLOGY REPORT (SQ) ---
EXAM DESCRIPTION: CHEST PA/LAT COMPLETED DATE/TIME: 09/16/2017 5:16 pm REASON FOR STUDY: Wheezes, rhonchi, congestion, dyspnea on exertion COMPARISON: 09/14/2017. TECHNIQUE: Frontal and lateral radiographic views of the chest acquired. NUMBER OF VIEWS: Two view. LIMITATIONS: None. FINDINGS: LUNGS AND PLEURA: No opacities, masses or pneumothorax. No pleural effusion. MEDIASTINUM AND HILAR STRUCTURES: No masses or contour abnormalities. HEART AND VASCULAR STRUCTURES: Heart normal size. No evidence for failure. BONES: No acute findings. HARDWARE: None in the chest. OTHER: No other significant finding. IMPRESSION: NO SIGNIFICANT RADIOGRAPHIC FINDING IN THE CHEST. TECHNICAL DOCUMENTATION: JOB ID: [id number] [employer]- All Rights Reserved
[2017-09-16 17:44] LABS: ABSOLUTE BASOPHILS # (AUTO) 0.1 10^3/uL (0.0-0.2); ABSOLUTE EOSINOPHILS # (AUTO) 0.1 10^3/uL (0.0-0.6); ABSOLUTE LYMPHOCYTES (AUTO) 1.5 10^3/uL (0.5-4.7); ABSOLUTE MONOCYTES (AUTO) 0.9 10^3/uL (0.1-1.4); ABSOLUTE NEUT (AUTO) 8.2 10^3/uL (1.7-8.2); BASOPHILS % (AUTO) 0.5 % (0-2); EOSINOPHILS % (AUTO) 1.3 % (0-6); HEMATOCRIT 36.6 % (36.0-47.0); HEMOGLOBIN 11.8 g/dL (12.0-15.5); MEAN CORPUSCULAR HEMOGLOBIN 23.4 pg (27.0-33.4); MEAN CORPUSCULAR HGB CONC 32.3 g/dL (32.0-36.0); MEAN CORPUSCULAR VOLUME 72 fl (80-97); MONOCYTES % (AUTO) 8.3 % (3-13); PLATELET COUNT 276 10^3/uL (150-450); RED BLOOD COUNT 5.05 10^6/uL (3.72-5.28); RED CELL DISTRIBUTION WIDTH 18.1 % (11.5-14.0); SEGMENTED NEUTROPHILS % (AUTO) 75.9 % (42-78); TOTAL CELLS COUNTED % (AUTO) 100 %; WHITE BLOOD COUNT 10.8 10^3/uL (4.0-10.5)
[2017-09-16 18:16] LABS: ALANINE AMINOTRANSFERASE 24 U/L (9-52); ALBUMIN 4.3 g/dL (3.5-5.0); ALKALINE PHOSPHATASE 96 U/L (38-126); ANION GAP 12 (5-19); ASPARTATE AMINO TRANSFERASE 16 U/L (14-36); BILIRUBIN,DIRECT 0.1 mg/dL (0.0-0.4); BILIRUBIN,TOTAL 0.1 mg/dL (0.2-1.3); BLOOD UREA NITROGEN 6 mg/dL (7-20); CALCIUM 9.2 mg/dL (8.4-10.2); CARBON DIOXIDE 22 mmol/L (22-30); CHLORIDE 105 mmol/L (98-107); GLUCOSE 97 mg/dL (75-110); POTASSIUM 3.6 mmol/L (3.6-5.0); SODIUM 138.5 mmol/L (137-145); TOTAL PROTEIN 7.2 g/dL (6.3-8.2)
[2017-09-16] MEDS ORDERED: NORMAL SALINE 500 ML IV PRN (19:09)
--- NOTE | 2017-09-16 19:16 | ER Document Report ---
ED General - General Chief Complaint: Breathing Difficulty Stated Complaint: SHORTNESS OF BREATH Time Seen by Provider: 09/16/17 16:32 Mode of Arrival: Ambulatory Information source: Patient Notes: This is a 26-year-old female with a history of hypertension and reactive airway disease who presents to the emergency room with nonproductive cough, chest heaviness, wheezing and shortness of breath for the past 2-3 days. Patient does report low-grade fevers. TRAVEL OUTSIDE OF THE [place] IN LAST 30 DAYS: No - HPI Onset: Last week Onset/Duration: Gradual Quality of pain: No pain Severity: None Pain Level: Denies Associated symptoms: Chest pain, Chills, Nonproductive cough, Shortness of breath. denies: Fever Exacerbated by: Denies Relieved by: Denies Similar symptoms previously: Yes Recently seen / treated by doctor: Yes - Related Data Allergies/Adverse Reactions: amoxicillin Allergy (Verified 09/16/17 16:17) ibuprofen [From Motrin] Allergy (Verified 09/16/17 16:17) Past Medical History - General Information source: Patient - Social History Smoking Status: Never Smoker Cigarette use (# per day): No Chew tobacco use (# tins/day): No Frequency of alcohol use: None Drug Abuse: None Lives with: Family Family History: Hypertension. denies: Arthritis, CAD, COPD, CVA, DM, Hyperlipidemia, Malignancy, Thyroid Disfunction Patient has suicidal ideation: No Patient has homicidal ideation: No - Past Medical History Cardiac Medical History: Reports: Hx Hypertension Pulmonary Medical History: Reports: Hx Asthma, Hx Pneumonia Neurological Medical History: Reports: Hx Migraine Endocrine Medical History: Reports: Hx Hypothyroidism Renal/ Medical History: Denies: Hx Peritoneal Dialysis Psychiatric Medical History: Reports: Hx Depression Past Surgical History: Reports: Hx Section - x4, Hx Tubal Ligation Review of Systems - Review of Systems Constitutional: denies: Chills, Fever EENT: No symptoms reported Cardiovascular: No symptoms reported Respiratory: See HPI Gastrointestinal: No symptoms reported Genitourinary: No symptoms reported Female Genitourinary: No symptoms reported Musculoskeletal: No symptoms reported Skin: No symptoms reported Hematologic/Lymphatic: No symptoms reported Neurological/Psychological: No symptoms reported Physical Exam - Vital signs Vitals: Temp Pulse Resp BP Pulse Ox 99.5 F 115 H 26 H 137/90 H 98 01/17/18 15:37 09/16/17 15:37 09/16/17 15:37 09/16/17 15:37 09/16/17 15:37 Notes: Physical exam: GENERAL: 26-year-old female, alert and oriented 3, mild respiratory distress HEAD: Atraumatic, normocephalic. EYES: Pupils equal round and reactive to light, extraocular movements intact, sclera anicteric, conjunctiva are normal. ENT: TMs normal, nares patent, oropharynx clear without exudates. Moist mucous membranes. NECK: Normal range of motion, supple without obvious mass or JVD. LUNGS: Wheezing bilaterally HEART: Regular rate and rhythm without murmurs, rubs or gallops. ABDOMEN: Soft, normoactive bowel sounds. No tenderness to palpation. No guarding, no rebound. No masses appreciated. EXTREMITIES: Normal range of motion, no pitting or edema. No clubbing or cyanosis. NEUROLOGICAL: Cranial nerves II through XII grossly intact. Normal speech, moving all extremities. PSYCH: Normal mood, normal affect. SKIN: Warm, Dry, normal turgor, no rashes or lesions noted. Course - Vital Signs Vital signs: Temp Pulse Resp BP Pulse Ox 98.3 F 91 22 H 153/92 H 99 09/17/17 01:05 09/17/17 01:05 09/17/17 01:05 09/17/17 01:05 09/17/17 01:05 - Laboratory Result Diagrams: 09/16/17 17:30 09/16/17 17:30 Laboratory results interpreted by me: 09/16/17 09/16/17 17:30 17:30 WBC 10.8 H Hgb 11.8 L MCV 72 L MCH 23.4 L RDW 18.1 H BUN 6 L Total Bilirubin 0.1 L - Diagnostic Test Radiology reviewed: Image reviewed, Reports reviewed - Chest x-ray shows no obvious infiltrate Discharge - Discharge Clinical Impression: acute asthma exacerbation Condition: Stable Disposition: ADMITTED INPATIENT Admitting Provider: Hospitalist - dr arriaga Unit Admitted: Medical Floor
[2017-09-16 19:51] LABS: A TYPE INFLUENZA AG NEGATIVE (NEGATIVE); B INFLUENZA AG NEGATIVE (NEGATIVE)
[2017-09-16] MEDS: MAGNESIUM SULFATE/D5W 1 GM/100 ML RTUPB IV SCH ×2 (20:15→20:50)
[2017-09-16] MEDS ORDERED: LEVOFLOXACIN 750 MG/D5W RTU 750 MG/150 ML RTUPB IV ONE (21:24)
[2017-09-16] MEDS ORDERED: HYDRALAZINE HCL INJ/PF 20 MG/1 ML SDV IV PRN (21:29)
[2017-09-16] MEDS ORDERED: ACETAMINOPHEN 325 MG TABLET PO PRN (21:29)
[2017-09-16] MEDS ORDERED: IPRATROPIUM/ALBUTEROL 0.5-2.5 MG/3 ML AMPUL NEB PRN (21:29)
[2017-09-16] MEDS ORDERED: CHLORPHENIRAMINE MALEATE 4 MG TABLET PO ONE (22:30)
[2017-09-16] MEDS: AMLODIPINE BESYLATE 10 MG TABLET PO SCH (23:45)
[2017-09-16] MEDS: GUAIFENESIN 600 MG TABLET.SA PO SCH (23:46)
[2017-09-16] MEDS: PREDNISONE 20 MG TABLET PO SCH (23:47)
[2017-09-16] MEDS: FLUTICASONE NASAL SPRAY 50 MCG/SPRY 120 SPRAY/16 GM NASL SCH (23:47)
[2017-09-16] MEDS: HEPARIN SOD (PORCINE) 5,000 UNIT/ML 1 ML SYRINGE SUBCUT SCH (23:48)
[2017-09-17] MEDS ORDERED: ZOLPIDEM TARTRATE 5 MG TABLET ONE ×2 (01:07→01:12)
[2017-09-17] MEDS: ZOLPIDEM TARTRATE 5 MG TABLET PO SCH ×2 (01:13→22:03)
[2017-09-17] MEDS ORDERED: ZOLPIDEM TARTRATE 5 MG TABLET PO ONE (01:15)
--- NOTE | 2017-09-17 01:38 | PDOC H&P ---
History of Present Illness Admission Date/PCP: 09/16/17 21:46 FAITH CARREON MD Patient complains of: Shortness of breath and wheeze History of Present Illness: LUCI AVILA is a 26 year old female with a past medical history of asthma and hypertension. She presents with 24 hours of exceptional wheeze and shortness of breath unable to speak in full sentences and paroxysms of nonproductive cough. She has had mild rhinorrhea but states exposure to cold commonly triggers symptoms. After several Combivent treatments she was without improvement prompting evaluation emergency room where she is found to have severe wheeze and cough, leukocytosis and an unremarkable chest x-ray she is referred to the hospitalist for admission. Past Medical History Cardiac Medical History: Reports: Hypertension Pulmonary Medical History: Reports: Asthma, Pneumonia Neurological Medical History: Reports: Migraine Endocrine Medical History: Reports: Hypothyroidism Psychiatric Medical History: Reports: Depression Past Surgical History Past Surgical History: Reports: Section - x4, Tubal Ligation Social History Information Source: Patient, [facility] Records Lives with: Family Smoking Status: Never Smoker Frequency of Alcohol Use: None Hx Recreational Drug Use: No Drugs: None Hx Prescription Drug Abuse: No - Advance Directive Resuscitation Status: Full Code Family History Family History: Hypertension. denies: Arthritis, CAD, COPD, CVA, DM, Hyperlipidemia, Malignancy, Thyroid Disfunction Parental Family History Reviewed: Yes Children Family History Reviewed: Yes Sibling(s) Family History Reviewed.: Yes Medication/Allergy Home Medications: Lisinopril [Prinivil] 20 mg PO DAILY 09/16/17 Olanzapine/Fluoxetine HCl [Symbyax 6-25 mg Capsule] 1 cap PO DAILY 09/16/17 Allergies/Adverse Reactions: amoxicillin Allergy (Verified 09/16/17 16:17) ibuprofen [From Motrin] Allergy (Verified 09/16/17 16:17) Review of Systems Constitutional: ABSENT: chills, fever(s), headache(s), weight gain, weight loss Eyes: ABSENT: visual disturbances Ears: ABSENT: hearing changes Cardiovascular: ABSENT: chest pain, dyspnea on exertion, edema, orthropnea, palpitations Respiratory: ABSENT: cough, hemoptysis Gastrointestinal: ABSENT: abdominal pain, constipation, diarrhea, hematemesis, hematochezia, nausea, vomiting Genitourinary: ABSENT: dysuria, hematuria Musculoskeletal: ABSENT: joint swelling Integumentary: ABSENT: rash, wounds Neurological: ABSENT: abnormal gait, abnormal speech, confusion, dizziness, focal weakness, syncope Psychiatric: ABSENT: anxiety, depression, homidical ideation, suicidal ideation Endocrine: ABSENT: cold intolerance, heat intolerance, polydipsia, polyuria Hematologic/Lymphatic: ABSENT: easy bleeding, easy bruising Physical Exam Vital Signs: Temp Pulse Resp BP Pulse Ox 98.3 F 91 22 H 153/92 H 99 09/17/17 01:05 09/17/17 01:05 09/17/17 01:05 09/17/17 01:05 09/17/17 01:05 Intake & Output 09/15/17 09/16/17 09/17/17 11:59 11:59 11:59 Weight 96.7 kg General appearance: PRESENT: mild distress Head exam: PRESENT: atraumatic, normocephalic Eye exam: PRESENT: conjunctiva pink, EOMI, PERRLA. ABSENT: scleral icterus Ear exam: PRESENT: normal external ear exam Mouth exam: PRESENT: moist, tongue midline Neck exam: ABSENT: carotid bruit, JVD, lymphadenopathy, thyromegaly Respiratory exam: PRESENT: accessory muscle use, prolonged expiratory phas, rales, retraction, symmetrical, tachypnea, wheezes. ABSENT: rhonchi Cardiovascular exam: PRESENT: tachycardia. ABSENT: clicks, diastolic murmur, gallop Pulses: PRESENT: normal dorsalis pedis pul Vascular exam: PRESENT: normal capillary refill GI/Abdominal exam: PRESENT: normal bowel sounds, soft. ABSENT: distended, guarding, mass, organolmegaly, rebound, tenderness Rectal exam: PRESENT: deferred Extremities exam: PRESENT: full ROM. ABSENT: calf tenderness, clubbing, pedal edema Neurological exam: PRESENT: alert, awake, oriented to person, oriented to place , oriented to time, oriented to situation, CN II-XII grossly intact. ABSENT: motor sensory deficit Psychiatric exam: PRESENT: appropriate affect, normal mood. ABSENT: homicidal ideation, suicidal ideation Skin exam: PRESENT: dry, intact, warm. ABSENT: cyanosis, rash Results Impressions: Chest X-Ray 09/16/17 16:39 IMPRESSION: NO SIGNIFICANT RADIOGRAPHIC FINDING IN THE CHEST. Assessment & Plan - Diagnosis (1) Asthma exacerbation Is this a current diagnosis for this admission?: Yes Plan: Mid floor observation, prednisone, albuterol and Atrovent. Peak flow every 6 hours. (2) Acute bronchitis Is this a current diagnosis for this admission?: Yes Plan: Supplemental oxygen, prednisone, empiric antibiotics, albuterol and Atrovent - Time Time Spent: 30 to 50 Minutes - Inpatient Certification Medical Necessity: Need Close Monitoring Due to Risk of Patient Decompensation
[2017-09-17] MEDS: IPRATROPIUM/ALBUTEROL 0.5-2.5 MG/3 ML AMPUL NEB SCH ×4 (02:32→20:28)
[2017-09-17] MEDS: HEPARIN SOD (PORCINE) 5,000 UNIT/ML 1 ML SYRINGE SUBCUT SCH ×3 (05:43→22:03)
[2017-09-17] MEDS: LANSOPRAZOLE 30 MG TAB.RAP.DR PO SCH ×2 (05:43→18:48)
[2017-09-17 06:53] LABS: ABSOLUTE BASOPHILS # (AUTO) 0.1 10^3/uL (0.0-0.2); ABSOLUTE LYMPHOCYTES (AUTO) 0.7 10^3/uL (0.5-4.7); ABSOLUTE MONOCYTES (AUTO) 0.3 10^3/uL (0.1-1.4); ABSOLUTE NEUT (AUTO) 10.1 10^3/uL (1.7-8.2); BASOPHILS % (AUTO) 0.5 % (0-2); EOSINOPHILS % (AUTO) 0.1 % (0-6); HEMATOCRIT 34.2 % (36.0-47.0); MEAN CORPUSCULAR HEMOGLOBIN 23.4 pg (27.0-33.4); MEAN CORPUSCULAR HGB CONC 32.3 g/dL (32.0-36.0); MEAN CORPUSCULAR VOLUME 73 fl (80-97); MONOCYTES % (AUTO) 2.4 % (3-13); PLATELET COUNT 261 10^3/uL (150-450); RED BLOOD COUNT 4.71 10^6/uL (3.72-5.28); RED CELL DISTRIBUTION WIDTH 18.2 % (11.5-14.0); TOTAL CELLS COUNTED % (AUTO) 100 %; WHITE BLOOD COUNT 11.1 10^3/uL (4.0-10.5)
[2017-09-17 07:02] LABS: ANION GAP 12 (5-19); BLOOD UREA NITROGEN 6 mg/dL (7-20); CALCIUM 9.5 mg/dL (8.4-10.2); CARBON DIOXIDE 18 mmol/L (22-30); CHLORIDE 109 mmol/L (98-107); GLUCOSE 123 mg/dL (75-110); POTASSIUM 4.1 mmol/L (3.6-5.0); SODIUM 139.3 mmol/L (137-145)
[2017-09-17] MEDS: PREDNISONE 20 MG TABLET PO SCH ×2 (10:21→22:03)
[2017-09-17] MEDS: LISINOPRIL 10 MG TABLET PO SCH (10:21)
[2017-09-17] MEDS: FLUTICASONE NASAL SPRAY 50 MCG/SPRY 120 SPRAY/16 GM NASL SCH ×2 (10:27→22:03)
[2017-09-17] MEDS: GUAIFENESIN SYRP 200 MG/10 ML UDC PO PRN ×2 (10:27→10:51)
[2017-09-17] MEDS: GUAIFENESIN 600 MG TABLET.SA PO SCH ×2 (13:00→22:03)
[2017-09-17] MEDS ORDERED: LEVOFLOXACIN 750 MG/D5W RTU 750 MG/150 ML RTUPB IV SCH (22:00)
[2017-09-17] MEDS: AMLODIPINE BESYLATE 10 MG TABLET PO SCH (22:03)
[2017-09-18] MEDS: IPRATROPIUM/ALBUTEROL 0.5-2.5 MG/3 ML AMPUL NEB SCH ×2 (02:39→07:50)
[2017-09-18] MEDS: HEPARIN SOD (PORCINE) 5,000 UNIT/ML 1 ML SYRINGE SUBCUT SCH (05:24)
[2017-09-18] MEDS: LANSOPRAZOLE 30 MG TAB.RAP.DR PO SCH (05:25)
[2017-09-18] MEDS: FLUTICASONE NASAL SPRAY 50 MCG/SPRY 120 SPRAY/16 GM NASL SCH (09:14)
[2017-09-18] MEDS: GUAIFENESIN 600 MG TABLET.SA PO SCH (09:14)
[2017-09-18] MEDS: PREDNISONE 20 MG TABLET PO SCH (09:15)
[2017-09-18] MEDS: LISINOPRIL 10 MG TABLET PO SCH (09:15)
[2017-09-18 09:40] VITALS: BP 139/86
--- NOTE | 2017-09-21 15:44 | PDOC DISCHARGE SUMMARY ---
General - Admit/Disc Date/PCP Admission Date/Primary Care Provider: 09/16/17 21:46 FAITH CARREON MD Discharge Date: 09/18/17 - Discharge Diagnosis (1) Acute bronchitis Is this a current diagnosis for this admission?: Yes (2) Asthma exacerbation Is this a current diagnosis for this admission?: Yes - Additional Information Resuscitation Status: Full Code Discharge Diet: As Tolerated Discharge Activity: Activity As Tolerated Prescriptions: Albuterol Sulfate [Ventolin Hfa] 1 - 2 puff IH Q4 PRN 30 Days #1 hfa.aer.ad PRN Reason: Doxycycline Hyclate 100 mg PO BID #14 capsule Hydrochlorothiazide 25 mg PO DAILY 30 Days #30 tablet Ipratropium/Albuterol Sulfate [Duoneb 3 ml Ampul] 3 ml NEB RTQ6HP PRN #30 vial.neb PRN Reason: Prednisone [Deltasone 20 mg Tablet] 40 mg PO DAILY 15 Days #15 tablet Home Medications: Lisinopril [Prinivil] 20 mg PO DAILY 09/16/17 Olanzapine/Fluoxetine HCl [Symbyax 6-25 mg Capsule] 1 cap PO DAILY 09/16/17 Albuterol Sulfate [Ventolin Hfa] 1 - 2 puff IH Q4 PRN 30 Days #1 hfa.aer.ad Doxycycline Hyclate 100 mg PO BID #14 capsule 09/18/17 Hydrochlorothiazide 25 mg PO DAILY 30 Days #30 tablet 09/18/17 Ipratropium/Albuterol Sulfate [Duoneb 3 ml Ampul] 3 ml NEB RTQ6HP PRN #30 vial.neb 09/18/17 Prednisone [Deltasone 20 mg Tablet] 40 mg PO DAILY 15 Days #15 tablet 09/18/17 History of Present Illness Patient complains of: SOB History of Present Illness: LUCI AVILA is a 26 year old female with a past medical history of asthma and hypertension. She presents with 24 hours of exceptional wheeze and shortness of breath unable to speak in full sentences and paroxysms of nonproductive cough. She has had mild rhinorrhea but states exposure to cold commonly triggers symptoms. After several Combivent treatments she was without improvement prompting evaluation emergency room where she is found to have severe wheeze and cough, leukocytosis and an unremarkable chest x-ray she is referred to the hospitalist for admission. Hospital Course Hospital Course: 1 asthma acute exacerbation Patient was in mild respiratory distress on admission with wheezes bilaterally She was treated with steroids nebs; antibiotics also were prescribed although she did not have an infiltrate on the chest x-ray Patient's condition improved dramatically within 24 hours and she was discharged on doxycycline p.o. and a prednisone taper 2 hypertension Was controlled Physical Exam Vital Signs: Temp Pulse Resp BP Pulse Ox 98.2 F 77 20 139/86 H 100 09/18/17 09:34 09/18/17 09:34 09/18/17 09:34 09/18/17 09:34 09/18/17 09:34 General appearance: PRESENT: mild distress Head exam: PRESENT: atraumatic, normocephalic Eye exam: PRESENT: conjunctiva pink, EOMI, PERRLA. ABSENT: scleral icterus Ear exam: PRESENT: normal external ear exam Mouth exam: PRESENT: moist, tongue midline Neck exam: ABSENT: carotid bruit, JVD, lymphadenopathy, thyromegaly Respiratory exam: PRESENT: accessory muscle use, prolonged expiratory phas, rales, retraction, symmetrical, tachypnea, wheezes. ABSENT: rhonchi Cardiovascular exam: PRESENT: tachycardia. ABSENT: clicks, diastolic murmur, gallop Pulses: PRESENT: normal dorsalis pedis pul Vascular exam: PRESENT: normal capillary refill GI/Abdominal exam: PRESENT: normal bowel sounds, soft. ABSENT: distended, guarding, mass, organolmegaly, rebound, tenderness Results Laboratory Results: 09/17/17 06:27 09/17/17 06:27 Impressions: Chest X-Ray 09/16/17 16:39 IMPRESSION: NO SIGNIFICANT RADIOGRAPHIC FINDING IN THE CHEST. Plan Discharge Plan: Patient was discharged home to follow up with the [place] [facility] within a week time Time Spent: Less than 30 Minutes
== END 2017-09-18 10:07 | disposition home or self-care (01) ==
LOC: ER 15:31 → EH 21:46 → 2N 09-17 00:49
PROVIDERS: ADMIT Internal Medicine; ATTEND Internal Medicine
PROC: 3E0F7GC Introduction of Other Therapeutic Substance into Respiratory Tract, Via Natural or Artificial Opening (ICD-10-PCS; principal; 2017-09-16)
DX: J20.9 Acute bronchitis, unspecified (principal); J45.901 Unspecified asthma with (acute) exacerbation; I10 Essential (primary) hypertension; D64.9 Anemia, unspecified; R00.0 Tachycardia, unspecified; Z79.899 Other long term (current) drug therapy; Z87.01 Personal history of pneumonia (recurrent)
CPT/HCPCS: 94640 ×5; 99285; 96365; 36415 ×2; 84703; 85025 ×2; 80048; 80053; 87804; 71046; 94799; G0378 ×4; J3490 ×11; J1644 ×3; J3475; J7512 ×3; J1956 ×2; J7620 ×3

== ENCOUNTER 2017-12-21 17:37 | Emergency (ER) | payer MEDICAID ==
--- NOTE | 2017-12-21 18:57 | ER Document Report ---
HPI - HPI Patient complains to provider of: blood with wiping, cough and wheeze Onset: Other - 2 days Onset/Duration: Gradual Pain Level: 5 Context: 27-year-old female complaining of cough and wheezing for 2 days. No fever or chills. She is also complaining of spotting that she noticed when she wipes after urination. Since coming from her vagina. Vaginal discharge with odor. No history of STDs. Denies . Associated Symptoms: None Exacerbated by: Denies Similar symptoms previously: No Recently seen / treated by doctor: No - ROS ROS below otherwise negative: Yes Systems Reviewed and Negative: Yes All other systems reviewed and negative - REPRODUCTIVE Reproductive: DENIES: : Past Medical History - General Information source: Patient - Social History Smoking Status: Current Every Day Smoker Frequency of alcohol use: None Drug Abuse: None Lives with: Family Family History: Hypertension - Past Medical History Cardiac Medical History: Reports: Hx Hypertension Pulmonary Medical History: Reports: Hx Asthma, Hx Pneumonia Neurological Medical History: Reports: Hx Migraine Endocrine Medical History: Reports: Hx Hypothyroidism Renal/ Medical History: Denies: Hx Peritoneal Dialysis Psychiatric Medical History: Reports: Hx Depression Past Surgical History: Reports: Hx Section - x4, Hx Tubal Ligation Vertical Provider Document - CONSTITUTIONAL Agree With Documented VS: Yes Exam Limitations: No Limitations - INFECTION CONTROL TRAVEL OUTSIDE OF THE [place] IN LAST 30 DAYS: No - HEENT HEENT: Normocephalic - NECK Neck: Supple - RESPIRATORY Respiratory: Breath Sounds Normal, No Respiratory Distress - CARDIOVASCULAR Cardiovascular: Regular Rate, Regular Rhythm - GI/ABDOMEN Gastrointestinal: Abdomen Soft, Abdomen Non-Tender, No Organomegaly, Normal Bowel Sounds - BACK Back: Normal Inspection. negative: CVA Tenderness-Right, CVA Tenderness-Left - MUSCULOSKELETAL/EXTREMETIES Musculoskeletal/Extremeties: JEFFREY CARRENO - NEURO Level of Consciousness: Confused - DERM Integumentary: Warm, Dry, No Rash Course - Re-evaluation Re-evalutation: 12/21/17 20:05 Patient checked her vagina with a Q-tip and there was brown old blood in the vagina. The urinalysis and, test are negative. right low back hurts more with palpation and movement. Wheeze persists after 1 tx, 12/21/17 20:58 X-rays negative per radiologist. no wheeze after the nebulizers. Will treat with prednisone for 4 more days. For the wheezing - Vital Signs Vital signs: Temp Pulse Resp BP Pulse Ox 97.9 F 87 18 136/90 H 100 12/21/17 18:16 12/21/17 18:16 12/21/17 18:16 12/21/17 18:16 12/21/17 18:16 Discharge - Discharge Clinical Impression: Vaginal spotting, right low back muscle strain Asthmatic bronchitis Qualifiers: Asthma severity: mild Asthma persistence: intermittent Asthma complication type : uncomplicated Qualified Code(s): J45.20 - Mild intermittent asthma, uncomplicated Condition: Good Disposition: HOME, SELF-CARE Instructions: Acetaminophen, Asthma ([facility]), Inhaled Bronchodilators ([facility]), Muscle Strain ([facility]), Steroid Medication, Vaginal Bleeding ([facility]) Additional Instructions: See your doctor for recheck tomorrow Return to the emergency room if symptoms worsen Warm compress to your low back Tylenol for discomfort Prednisone for the next 4 days for the wheezing Albuterol 2 puffs every 3 hours Prescriptions: Albuterol Sulfate [Proair HFA Inhalation Aerosol 8.5 gm MDI] 2 puff IH Q3HP PRN #1 hfa.aer.ad PRN Reason: Prednisone [Deltasone 20 mg Tablet] 40 mg PO DAILY #8 tablet Referrals: FAITH CARREON MD [Primary Care Provider] - Follow up as needed
[2017-12-21] MEDS ORDERED: IPRATROPIUM/ALBUTEROL 0.5-2.5 MG/3 ML AMPUL NEB ONE (19:22)
[2017-12-21 19:24] LABS: APPEARANCE,URINE CLEAR; BILIRUBIN,URINE NEGATIVE (NEGATIVE); COLOR,URINE YELLOW; GLUCOSE, URINE NEGATIVE (NEGATIVE); KETONES,URINE NEGATIVE (NEGATIVE); LEUKOCYTE ESTERASE,URINE NEGATIVE (NEGATIVE); NITRITE,URINE NEGATIVE (NEGATIVE); PROTEIN,URINE NEGATIVE (NEGATIVE); URINE SPECIFIC GRAVITY 1.024
[2017-12-21] MEDS ORDERED: PREDNISONE 20 MG TABLET PO ONE (20:06)
[2017-12-21] MEDS ORDERED: ALBUTEROL SULFATE 0.083% NEB 2.5 MG/3 ML AMPUL NEB ONE (20:06)
--- NOTE | 2017-12-21 20:24 | RADIOLOGY REPORT (SQ) ---
EXAM DESCRIPTION: CHEST 2 VIEWS COMPLETED DATE/TIME: 12/21/2017 8:13 pm REASON FOR STUDY: cough, wheeze COMPARISON: 1 7 EXAM PARAMETERS: NUMBER OF VIEWS: two views TECHNIQUE: Digital Frontal and Lateral radiographic views of the chest acquired. RADIATION DOSE: NA LIMITATIONS: none FINDINGS: LUNGS AND PLEURA: No opacities, masses or pneumothorax. No pleural effusion. MEDIASTINUM AND HILAR STRUCTURES: No masses or contour abnormalities. HEART AND VASCULAR STRUCTURES: Heart normal size. No evidence for failure. BONES: No acute findings. HARDWARE: None in the chest. OTHER: No other significant finding. IMPRESSION: NO ACUTE RADIOGRAPHIC FINDING IN THE CHEST. TECHNICAL DOCUMENTATION: JOB ID: [id number] [employer]- All Rights Reserved Reading location - IP/workstation name: [email or web address]
[2017-12-21] MEDS ORDERED: ALBUTEROL SULFATE HFA (90 MCG/PUFF) 8 GM MDI (1 MDI/ER DISP) IH PRN (21:02)
[2017-12-21 21:17] VITALS: BP 132/90
== END 2017-12-21 21:17 | disposition home or self-care (01) ==
LOC: ER 17:37
DX: J45.20 Mild intermittent asthma, uncomplicated (principal); N89.8 Other specified noninflammatory disorders of vagina; N93.9 Abnormal uterine and vaginal bleeding, unspecified; S39.012A Strain of muscle, fascia and tendon of lower back, initial encounter; X58.XXXA Exposure to other specified factors, initial encounter; R05 Cough; I10 Essential (primary) hypertension; F17.200 Nicotine dependence, unspecified, uncomplicated; Z87.01 Personal history of pneumonia (recurrent)
CPT/HCPCS: 94640 ×2; 99283; 87086; 81025; 87088; 81001; 71046; J7512; J7620

== ENCOUNTER 2018-01-05 21:29 | Emergency (ER) | payer MEDICAID ==
[2018-01-05] MEDS ORDERED: ACETAMINOPHEN 325 MG TABLET PO ONE (22:00)
[2018-01-05] MEDS ORDERED: METHYLPREDNISOLONE INJ 125 MG/2 ML SDV IV ONE (22:00)
[2018-01-05] MEDS ORDERED: IPRATROPIUM/ALBUTEROL 0.5-2.5 MG/3 ML AMPUL NEB ONE ×3 (22:00→23:14)
--- NOTE | 2018-01-05 22:03 | ER Document Report ---
ED Respiratory Problem - General Chief Complaint: Asthma Exacerbation Stated Complaint: ASTHMA Time Seen by Provider: 01/05/18 21:55 Notes: Patient is a 27-year-old female with a history of asthma that comes emergency department for chief complaint of difficulty breathing that began this morning. She reports a nonproductive cough, she coughed until she vomited, she states that this evening she has not been able to catch her breath. She states she was around smoking friends this morning and they triggered her asthma. She denies smoking. She was found to have a low-grade fever in triage. She does report multiple hospital admissions for asthma but denies ever being intubated. She takes Qvar, denies any other medications or medical problems. LMP within the past month. TRAVEL OUTSIDE OF THE [place] IN LAST 30 DAYS: No - Related Data Allergies/Adverse Reactions: amoxicillin Allergy (Verified 01/05/18 21:50) ibuprofen [From Motrin] Allergy (Verified 01/05/18 21:50) Past Medical History - General Information source: Patient - Social History Smoking Status: Current Every Day Smoker Chew tobacco use (# tins/day): No Frequency of alcohol use: None Drug Abuse: None Lives with: Family Family History: Hypertension Patient has suicidal ideation: No Patient has homicidal ideation: No - Past Medical History Cardiac Medical History: Reports: Hx Hypertension Pulmonary Medical History: Reports: Hx Asthma, Hx Pneumonia Neurological Medical History: Reports: Hx Migraine Endocrine Medical History: Reports: Hx Hypothyroidism Renal/ Medical History: Denies: Hx Peritoneal Dialysis Psychiatric Medical History: Reports: Hx Depression Past Surgical History: Reports: Hx Section - x4, Hx Tubal Ligation - Immunizations Immunizations up to date: Yes Hx Diphtheria, Pertussis, Tetanus Vaccination: Yes Review of Systems - Review of Systems Constitutional: See HPI EENT: See HPI Cardiovascular: No symptoms reported Respiratory: See HPI Gastrointestinal: No symptoms reported Genitourinary: No symptoms reported Female Genitourinary: No symptoms reported Musculoskeletal: No symptoms reported Skin: No symptoms reported Hematologic/Lymphatic: No symptoms reported Neurological/Psychological: No symptoms reported Physical Exam - Vital signs Vitals: Temp Pulse Resp BP Pulse Ox 100.3 F 136 H 26 H 152/87 H 98 01/05/18 21:34 01/05/18 21:34 01/05/18 21:34 01/05/18 21:34 01/05/18 21:34 Interpretation: Normal - General General appearance: Appears well, Alert In distress: None - HEENT Head: Normocephalic, Atraumatic Eyes: Normal Conjunctiva: Normal Extraocular movements intact: Yes Eyelashes: Normal Pupils: PERRL Sinus: Normal Nasal: Normal Mouth/Lips: Normal Mucous membranes: Normal Pharynx: Normal Neck: Normal - Respiratory Respiratory status: Tachypnea. No: Labored Breath sounds: Decreased air movement, Nonproductive cough, Wheezing Chest palpation: Normal - Cardiovascular Rhythm: Regular, Tachycardia Heart sounds: Normal auscultation, S1 appreciated, S2 appreciated Murmur: No - Abdominal Inspection: Normal Distension: No distension Bowel sounds: Normal Tenderness: Nontender Organomegaly: No organomegaly - Back Back: Normal, Nontender - Extremities General upper extremity: Normal inspection, Nontender, Normal color, Normal ROM , Normal temperature General lower extremity: Normal inspection, Nontender, Normal color, Normal ROM , Normal temperature, Normal weight bearing. No: Jessica's sign - Neurological Neuro grossly intact: Yes Cognition: Normal Orientation: AAOx4 Monty Coma Scale Eye Opening: Spontaneous Monty Coma Scale Verbal: Oriented [place] Coma Scale Motor: Obeys Commands Monty Coma Scale Total: 15 Speech: Normal Motor strength normal: LUE, RUE, LLE, RLE Sensory: Normal - Psychological Associated symptoms: Normal affect, Normal mood - Skin Skin Temperature: Warm Skin Moisture: Dry Skin Color: Normal Course - Re-evaluation Re-evalutation: Patient initially with tachypnea, borderline tachycardia, expiratory wheezes, and nonproductive cough. After treatments symptoms completely resolved, vital signs normalized, patient states she feels great. Chest x-ray is unremarkable. CBC and chemistry are unremarkable other than mild hypokalemia. Patient was given IV fluids. Patient continues to be very well-appearing on reevaluation. She is asking to go home and have refills of her albuterol nebulizer along with medications for asthma. Patient will be covered with doxycycline because of persistent cough, history of asthma and admissions, and fever. Patient ambulated with pulse ox and did very well, had no respiratory distress or hypoxia. Discussed follow-up , return precautions, patient states satisfaction and agreement. - Vital Signs Vital signs: Temp Pulse Resp BP Pulse Ox 97.8 F 136 H 21 H 119/79 98 01/06/18 02:59 01/05/18 21:34 01/06/18 02:45 01/06/18 02:45 01/06/18 02:45 - Laboratory Result Diagrams: 01/05/18 22:30 01/05/18 22:40 Laboratory results interpreted by me: 01/05/18 01/05/18 01/05/18 22:30 22:40 22:40 Hgb 10.3 L Hct 32.1 L MCV 71 L MCH 22.9 L RDW 17.7 H Eosinophils % 8.4 H VBG pH 7.46 H VBG pCO2 33.0 L Potassium 3.3 L Glucose 116 H Urine Blood 01/06/18 01:13 Hgb Hct MCV MCH RDW Eosinophils % VBG pH VBG pCO2 Potassium Glucose Urine Blood SMALL H Discharge - Discharge Clinical Impression: Cough Asthma exacerbation Qualifiers: Asthma severity: unspecified severity Asthma persistence: unspecified Qualified Code(s): J45.901 - Unspecified asthma with (acute) exacerbation Fever Qualifiers: Fever type: unspecified Qualified Code(s): R50.9 - Fever, unspecified Condition: Stable Disposition: HOME, SELF-CARE Additional Instructions: Take prednisone as prescribed for asthma exacerbation, use rescue inhaler and albuterol nebulizer as prescribed. We are covering you with doxycycline antibiotic to prevent pneumonia. Follow-up with your provider in the next 1-3 for a recheck. Return if you worsen including difficulty breathing, spiking fever, or any other concerning or worsening symptoms. Prescriptions: Albuterol Sulfate [Albuterol Sulfate 2.5mg/3 mL] 1 vial IH Q4 PRN #30 vial PRN Reason: Doxycycline Hyclate 100 mg PO BID #14 capsule Prednisone 60 mg PO DAILY #15 tablet Referrals: EVIE AUGUSTIN MD [Primary Care Provider] - Follow up as needed
--- NOTE | 2018-01-05 22:30 | RADIOLOGY REPORT (SQ) ---
EXAM DESCRIPTION: CHEST SINGLE VIEW COMPLETED DATE/TIME: 01/05/2018 10:21 pm REASON FOR STUDY: fever, shortness of breath, cough COMPARISON: 12/21/2017 EXAM PARAMETERS: NUMBER OF VIEWS: One view. TECHNIQUE: Single frontal radiographic view of the chest acquired. RADIATION DOSE: NA LIMITATIONS: None. FINDINGS: LUNGS AND PLEURA: No opacities, masses or pneumothorax. No pleural effusion. MEDIASTINUM AND HILAR STRUCTURES: No masses. Contour normal. HEART AND VASCULAR STRUCTURES: Heart normal in size. Normal vasculature. BONES: No acute findings. HARDWARE: None in the chest. OTHER: No other significant finding. IMPRESSION: NO ACUTE RADIOGRAPHIC FINDING IN THE CHEST. TECHNICAL DOCUMENTATION: JOB ID: [id number] [employer]- All Rights Reserved Reading location - IP/workstation name: [email or web address]
[2018-01-05] MEDS: MAGNESIUM SULFATE/D5W 1 GM/100 ML RTUPB IV SCH ×2 (22:31→23:42)
[2018-01-05 22:44] LABS: ABSOLUTE EOSINOPHILS # (AUTO) 0.5 10^3/uL (0.0-0.6); ABSOLUTE LYMPHOCYTES (AUTO) 0.8 10^3/uL (0.5-4.7); ABSOLUTE MONOCYTES (AUTO) 0.6 10^3/uL (0.1-1.4); ABSOLUTE NEUT (AUTO) 3.7 10^3/uL (1.7-8.2); BASOPHILS % (AUTO) 0.5 % (0-2); EOSINOPHILS % (AUTO) 8.4 % (0-6); HEMATOCRIT 32.1 % (36.0-47.0); HEMOGLOBIN 10.3 g/dL (12.0-15.5); LYMPHOCYTES % (AUTO) 14.6 % (13-45); MEAN CORPUSCULAR HEMOGLOBIN 22.9 pg (27.0-33.4); MEAN CORPUSCULAR HGB CONC 32.1 g/dL (32.0-36.0); MEAN CORPUSCULAR VOLUME 71 fl (80-97); MONOCYTES % (AUTO) 11.2 % (3-13); PLATELET COUNT 297 10^3/uL (150-450); RED CELL DISTRIBUTION WIDTH 17.7 % (11.5-14.0); SEGMENTED NEUTROPHILS % (AUTO) 65.3 % (42-78); TOTAL CELLS COUNTED % (AUTO) 100 %; WHITE BLOOD COUNT 5.7 10^3/uL (4.0-10.5)
[2018-01-05 22:59] LABS: VENOUS BLOOD BASE EXCESS -0.7 mmol/L; VENOUS BLOOD HCO3 22.7 mmol/L (20-32); VENOUS BLOOD PH 7.46 (7.30-7.42)
[2018-01-05 23:29] LABS: ALANINE AMINOTRANSFERASE 24 U/L (9-52); ALBUMIN 3.7 g/dL (3.5-5.0); ALKALINE PHOSPHATASE 86 U/L (38-126); ANION GAP 13 (5-19); ASPARTATE AMINO TRANSFERASE 14 U/L (14-36); BILIRUBIN,DIRECT 0.2 mg/dL (0.0-0.4); BILIRUBIN,TOTAL 0.2 mg/dL (0.2-1.3); BLOOD UREA NITROGEN 7 mg/dL (7-20); CARBON DIOXIDE 22 mmol/L (22-30); CHLORIDE 105 mmol/L (98-107); GLUCOSE 116 mg/dL (75-110); POTASSIUM 3.3 mmol/L (3.6-5.0); SODIUM 139.5 mmol/L (137-145); TOTAL PROTEIN 6.4 g/dL (6.3-8.2)
[2018-01-05] MEDS ORDERED: NORMAL SALINE 1000 ML 1,000 ML IV ONE (23:32)
[2018-01-06] MEDS ORDERED: DOXYCYCLINE HYCLATE 100 MG TABLET PO ONE (01:30)
[2018-01-06] MEDS ORDERED: BENZONATATE 100 MG CAPSULE PO ONE (01:30)
[2018-01-06 01:40] LABS: APPEARANCE,URINE CLOUDY; BILIRUBIN,URINE NEGATIVE (NEGATIVE); COLOR,URINE YELLOW; GLUCOSE, URINE NEGATIVE (NEGATIVE); KETONES,URINE NEGATIVE (NEGATIVE); LEUKOCYTE ESTERASE,URINE NEGATIVE (NEGATIVE); NITRITE,URINE NEGATIVE (NEGATIVE); PROTEIN,URINE NEGATIVE (NEGATIVE); URINE SPECIFIC GRAVITY 1.005; UROBILINOGEN,URINE NEGATIVE mg/dL (<2.0)
[2018-01-06 02:47] VITALS: BP 119/79
== END 2018-01-06 03:00 | disposition home or self-care (01) ==
LOC: ER 21:29
DX: J45.901 Unspecified asthma with (acute) exacerbation (principal); R50.9 Fever, unspecified; F17.200 Nicotine dependence, unspecified, uncomplicated; E03.9 Hypothyroidism, unspecified; Z98.51 Tubal ligation status; Z88.0 Allergy status to penicillin; Z88.6 Allergy status to analgesic agent
CPT/HCPCS: 94640 ×2; 99285; 96375; 96365; 96366; 36415; 87040; 84703; 85025; 80053; 81001; 82803; 71045; J3490 ×3; J2930; J3475; J7030; J7620

== ENCOUNTER 2018-01-09 19:42 | Emergency (ER) | payer MEDICAID ==
[2018-01-09] MEDS ORDERED: METHYLPREDNISOLONE INJ 125 MG/2 ML SDV IV ONE (19:52)
[2018-01-09] MEDS ORDERED: IPRATROPIUM/ALBUTEROL 0.5-2.5 MG/3 ML AMPUL NEB ONE (19:52)
--- NOTE | 2018-01-09 19:55 | ER Document Report ---
ED Medical Screen (RME) - General Chief Complaint: Shortness Of Breath Stated Complaint: SHORTNESS OF BREATH Time Seen by Provider: 01/09/18 19:52 Notes: RAPID MEDICAL EVALUATION DISCLOSURE I have seen this patient as part of a Rapid Medical Evaluation and, if applicable, placed any initially appropriate orders. The patient will be seen and fully evaluated, including a full history and physical exam, by a provider ( in Main ED or Fast Track) when a room becomes available. Called to the lobby to see this patient with wheezing and shortness of breath. Patient states for the past 2-3 days she has had progressively worsening shortness of breath and wheezing. She has tried her inhaler and nebulizer machine with minimal relief. EXAM Speaking in 3-4 word sentences Moderate diffuse end expiratory wheezes with prolonged expiratory phase Moderate decrease in aeration Mild accessory muscle usage TRAVEL OUTSIDE OF THE [place] IN LAST 30 DAYS: No - Related Data Allergies/Adverse Reactions: amoxicillin Allergy (Verified 01/09/18 19:49) ibuprofen [From Motrin] Allergy (Verified 01/09/18 19:49) Past Medical History - Past Medical History Cardiac Medical History: Reports: Hx Hypertension Pulmonary Medical History: Reports: Hx Asthma, Hx Pneumonia Neurological Medical History: Reports: Hx Migraine Endocrine Medical History: Reports: Hx Hypothyroidism Renal/ Medical History: Denies: Hx Peritoneal Dialysis Psychiatric Medical History: Reports: Hx Depression Past Surgical History: Reports: Hx Section - x4, Hx Tubal Ligation - Immunizations Immunizations up to date: Yes Hx Diphtheria, Pertussis, Tetanus Vaccination: Yes History of Influenza Vaccine for 05/2017 - 10/2017 Season: Refused Physical Exam - Vital signs Vitals: Temp Pulse Resp BP Pulse Ox 99.4 F 116 H 24 H 161/105 H 99 01/09/18 19:48 01/09/18 19:48 01/09/18 19:48 01/09/18 19:48 01/09/18 19:48 Course - Vital Signs Vital signs: Temp Pulse Resp BP Pulse Ox 99.4 F 116 H 24 H 161/105 H 99 01/09/18 19:48 01/09/18 19:48 01/09/18 19:48 01/09/18 19:48 01/09/18 19:48
[2018-01-09] MEDS ORDERED: MAGNESIUM SULFATE/D5W 2 GM/200 ML RTUPB IV ONE (19:56)
[2018-01-09] MEDS ORDERED: NORMAL SALINE 1000 ML 1,000 ML IV ONE (19:57)
--- NOTE | 2018-01-09 20:01 | ER Document Report ---
ED Respiratory Problem - General Chief Complaint: Shortness Of Breath Stated Complaint: SHORTNESS OF BREATH Time Seen by Provider: 01/09/18 19:52 Notes: Patient is a 27-year-old female that comes emergency department for chief complaint of difficulty breathing. She has asthma, she was seen 4 days ago by me and discharged on prednisone, she has been taking prednisone and using albuterol, she states for the past 3 days she has had progressive worsening of symptoms until she had difficulty breathing and came back. She states she has been sweating today but she is unsure of fever. She does not smoke but is around other people who do smoke. She has been admitted to the hospital for asthma in the past but has never been intubated. TRAVEL OUTSIDE OF THE [place] IN LAST 30 DAYS: No - Related Data Allergies/Adverse Reactions: amoxicillin Allergy (Verified 01/09/18 19:49) ibuprofen [From Motrin] Allergy (Verified 01/09/18 19:49) Past Medical History - General Information source: Patient - Social History Smoking Status: Never Smoker Frequency of alcohol use: None Drug Abuse: None Lives with: Family Family History: Hypertension - Past Medical History Cardiac Medical History: Reports: Hx Hypertension Pulmonary Medical History: Reports: Hx Asthma, Hx Pneumonia Neurological Medical History: Reports: Hx Migraine Endocrine Medical History: Reports: Hx Hypothyroidism Renal/ Medical History: Denies: Hx Peritoneal Dialysis Psychiatric Medical History: Reports: Hx Depression Past Surgical History: Reports: Hx Section - x4, Hx Tubal Ligation - Immunizations Immunizations up to date: Yes Hx Diphtheria, Pertussis, Tetanus Vaccination: Yes Review of Systems - Review of Systems Constitutional: No symptoms reported EENT: No symptoms reported Cardiovascular: No symptoms reported Respiratory: See HPI Gastrointestinal: No symptoms reported Genitourinary: No symptoms reported Female Genitourinary: No symptoms reported Musculoskeletal: No symptoms reported Skin: See HPI Hematologic/Lymphatic: No symptoms reported Neurological/Psychological: No symptoms reported Physical Exam - Vital signs Vitals: Temp Pulse Resp BP Pulse Ox 99.4 F 116 H 24 H 161/105 H 99 01/09/18 19:48 01/09/18 19:48 01/09/18 19:48 01/09/18 19:48 01/09/18 19:48 Interpretation: Normal - General General appearance: Anxious In distress: Mild - Mild respiratory distress - HEENT Head: Normocephalic, Atraumatic Eyes: Normal Extraocular movements intact: Yes Eyelashes: Normal Pupils: PERRL Nasal: Normal Mouth/Lips: Normal Mucous membranes: Normal Pharynx: Normal Neck: Normal - Respiratory Respiratory status: Respiratory distress - Expiratory wheezes throughout, slightly decreased air movement, some use of accessory muscles, tachypnea Chest status: Nontender Breath sounds: Decreased air movement, Nonproductive cough, Wheezing Chest palpation: Normal - Cardiovascular Rhythm: Regular, Tachycardia Heart sounds: Normal auscultation, S1 appreciated, S2 appreciated Murmur: No - Abdominal Inspection: Normal Distension: No distension Bowel sounds: Normal Tenderness: Nontender. No: Tender, Guarding - Back Back: Normal, Nontender - Extremities General upper extremity: Normal inspection, Nontender, Normal color, Normal ROM , Normal temperature General lower extremity: Normal inspection, Nontender, Normal color, Normal ROM , Normal temperature, Normal weight bearing. No: Jessica's sign - Neurological Neuro grossly intact: Yes Cognition: Normal Orientation: AAOx4 Monty Coma Scale Eye Opening: Spontaneous [place] Coma Scale Verbal: Oriented [place] Coma Scale Motor: Obeys Commands [place] Coma Scale Total: 15 Speech: Normal Motor strength normal: LUE, RUE, LLE, RLE Sensory: Normal - Psychological Associated symptoms: Anxious - Skin Skin Temperature: Warm Skin Moisture: Diaphoretic Skin Color: Normal Course - Re-evaluation Re-evalutation: Patient initially with mild respiratory distress labored breathing, tachypnea, wheezes throughout. Began duo nebs, magnesium, Solu-Medrol, will provide IV fluids. Patient will be rechecked and monitored closely. Chest x-ray unremarkable, CBC shows mild leukocytosis consistent with her taking her prednisone at home, bicarbonate is low at 19, however pH slightly elevated. CO2 is actually low with her hyperventilation. Tachypnea and hyperventilation stopped, patient's breathing normalized, signs of distress resolved, on reevaluation patient's wheezing is significantly reduced. Will recheck. Patient has a few mild scattered wheezes on reexamination, she states she feels great, she requests to leave. Because of her frequent exacerbations and with having some wheezing so on exam I suggested I discussed with hospitalist for admission, however patient declines. Patient was ambulated, she did not become hypoxic, did not have notable tachycardic, did not have any respiratory distress. She states she wants to leave, it is Mother's Day, she will return if she worsens in any way. Discharged with strict return precautions. - Vital Signs Vital signs: Temp Pulse Resp BP Pulse Ox 99.4 F 116 H 19 135/88 H 98 01/09/18 19:48 01/09/18 19:48 01/09/18 22:01 01/09/18 22:01 01/09/18 22:01 - Laboratory Result Diagrams: 01/09/18 20:00 01/09/18 20:00 Laboratory results interpreted by me: 01/09/18 01/09/18 01/09/18 20:00 20:00 20:00 WBC 13.4 H Hgb 11.3 L Hct 35.7 L MCV 71 L MCH 22.3 L MCHC 31.7 L RDW 18.0 H Seg Neutrophils % 84.2 H Lymphocytes % 12.1 L Absolute Neutrophils 11.3 H VBG pH 7.52 H VBG pCO2 23.8 L VBG HCO3 19.0 L Chloride 108 H Carbon Dioxide 19 L Glucose 136 H Discharge - Discharge Clinical Impression: Wheezing Asthma exacerbation Qualifiers: Asthma severity: moderate Asthma persistence: unspecified Qualified Code(s): J45.901 - Unspecified asthma with (acute) exacerbation Condition: Stable Disposition: HOME, SELF-CARE Additional Instructions: Your examination and workup are consistent with an asthma exacerbation. Finish current medication, take new prescribed medication to completion, use your albuterol inhaler, use [id number] antiallergy, continue Qvar, follow closely with primary care. Avoid smoking environment if possible. Return for any concerning or worsening symptoms including difficulty breathing, fever, or any other concerning symptoms Prescriptions: Prednisone [Deltasone 10 mg Tablet] 10 mg PO ASDIR PRN #39 tablet PRN Reason: Forms: Return to Work Referrals: EVIE AUGUSTIN MD [Primary Care Provider] - Follow up as needed
[2018-01-09] MEDS: MAGNESIUM SULFATE/D5W 1 GM/100 ML RTUPB IV SCH ×2 (20:06→20:37)
[2018-01-09 20:25] LABS: VENOUS BLOOD BASE EXCESS -2.3 mmol/L; VENOUS BLOOD PCO2 23.8 mmHg (35-63); VENOUS BLOOD PH 7.52 (7.30-7.42)
[2018-01-09 20:27] LABS: ABSOLUTE LYMPHOCYTES (AUTO) 1.6 10^3/uL (0.5-4.7); ABSOLUTE MONOCYTES (AUTO) 0.4 10^3/uL (0.1-1.4); ABSOLUTE NEUT (AUTO) 11.3 10^3/uL (1.7-8.2); BASOPHILS % (AUTO) 0.4 % (0-2); EOSINOPHILS % (AUTO) 0.2 % (0-6); HEMATOCRIT 35.7 % (36.0-47.0); HEMOGLOBIN 11.3 g/dL (12.0-15.5); LYMPHOCYTES % (AUTO) 12.1 % (13-45); MEAN CORPUSCULAR HEMOGLOBIN 22.3 pg (27.0-33.4); MEAN CORPUSCULAR HGB CONC 31.7 g/dL (32.0-36.0); MEAN CORPUSCULAR VOLUME 71 fl (80-97); MONOCYTES % (AUTO) 3.1 % (3-13); PLATELET COUNT 406 10^3/uL (150-450); RED BLOOD COUNT 5.06 10^6/uL (3.72-5.28); SEGMENTED NEUTROPHILS % (AUTO) 84.2 % (42-78); TOTAL CELLS COUNTED % (AUTO) 100 %; WHITE BLOOD COUNT 13.4 10^3/uL (4.0-10.5)
--- NOTE | 2018-01-09 20:39 | RADIOLOGY REPORT (SQ) ---
EXAM DESCRIPTION: CHEST SINGLE VIEW COMPLETED DATE/TIME: 01/09/2018 8:14 pm REASON FOR STUDY: SOB wheezing COMPARISON: Chest x-ray 01/05/2018. EXAM PARAMETERS: NUMBER OF VIEWS: One view. TECHNIQUE: Single frontal radiographic view of the chest acquired. RADIATION DOSE: NA LIMITATIONS: None. FINDINGS: LUNGS AND PLEURA: No consolidation, pneumothorax or pleural effusion. MEDIASTINUM AND HILAR STRUCTURES: No masses. Contour normal. HEART AND VASCULAR STRUCTURES: Heart normal in size. Normal vasculature. BONES: No acute findings. HARDWARE: None in the chest. IMPRESSION: No acute radiographic finding in the chest. TECHNICAL DOCUMENTATION: JOB ID: [id number] [email or web address]- All Rights Reserved Reading location - IP/workstation name: [email or web address]
[2018-01-09 20:41] LABS: ANION GAP 17 (5-19); BLOOD UREA NITROGEN 14 mg/dL (7-20); CALCIUM 9.9 mg/dL (8.4-10.2); CARBON DIOXIDE 19 mmol/L (22-30); CHLORIDE 108 mmol/L (98-107); GLUCOSE 136 mg/dL (75-110); POTASSIUM 3.8 mmol/L (3.6-5.0); SODIUM 143.9 mmol/L (137-145)
[2018-01-09 22:38] VITALS: BP 155/89
== END 2018-01-09 22:38 | disposition home or self-care (01) ==
LOC: ER 19:42
DX: J45.901 Unspecified asthma with (acute) exacerbation (principal); R06.02 Shortness of breath; R61 Generalized hyperhidrosis; I10 Essential (primary) hypertension
CPT/HCPCS: 94640; 99285; 96375; 96365; 96366; 36415; 84703; 85025; 80048; 82803; 71045; J2930; J3475; J7030; J7620

== ENCOUNTER 2018-02-14 12:53 | Emergency (ER) | payer MEDICAID ==
[2018-02-14] MEDS ORDERED: ONDANSETRON 4 MG TAB.RAPDIS PO ONE (13:22)
[2018-02-14] MEDS ORDERED: FAMOTIDINE 20 MG TABLET PO ONE (13:22)
[2018-02-14] MEDS ORDERED: DIPHENHYDRAMINE HCL 50 MG CAPSULE PO ONE (13:23)
[2018-02-14] MEDS ORDERED: LOPERAMIDE HCL 2 MG CAPSULE PO ONE (13:24)
--- NOTE | 2018-02-14 13:30 | ER Document Report ---
ED General - General Chief Complaint: Headache Stated Complaint: WEAK,VOMITING,HEADACHE Time Seen by Provider: 02/14/18 13:16 Mode of Arrival: Ambulatory Information source: Patient Notes: 27-year-old female with hypertension, migraine headaches presents with complaint of nausea, vomiting and diarrhea that started 7 hours prior to arrival. Patient states that she awoke this morning nauseated. She states just prior to arrival she had one episode of non-bilious nonbloody emesis. Patient also reports a few episodes of nonbloody diarrhea. Patient has some mild epigastric abdominal pain. She denies any lower abdominal pain, dysuria, hematuria, vaginal discharge. She denies sick contacts, recent antibiotics and recent travel. Patient has a surgical history of tubal ligation and C-sections. TRAVEL OUTSIDE OF THE [place] IN LAST 30 DAYS: No - HPI Onset: Just prior to arrival Onset/Duration: Sudden Quality of pain: Achy Severity: Mild Associated symptoms: Diarrhea, Nausea, Vomiting Exacerbated by: Denies Relieved by: Denies Similar symptoms previously: No Recently seen / treated by doctor: No - Related Data Allergies/Adverse Reactions: amoxicillin Allergy (Verified 02/14/18 12:53) ibuprofen [From Motrin] Allergy (Verified 02/14/18 12:53) Past Medical History - General Information source: Patient, [facility] Records - Social History Smoking Status: Never Smoker Chew tobacco use (# tins/day): No Frequency of alcohol use: None Drug Abuse: None Lives with: Family Family History: Hypertension Patient has suicidal ideation: No Patient has homicidal ideation: No - Past Medical History Cardiac Medical History: Reports: Hx Hypertension Pulmonary Medical History: Reports: Hx Asthma, Hx Pneumonia Neurological Medical History: Reports: Hx Migraine Endocrine Medical History: Reports: Hx Hypothyroidism Renal/ Medical History: Denies: Hx Peritoneal Dialysis Psychiatric Medical History: Reports: Hx Depression Past Surgical History: Reports: Hx Section - x4, Hx Tubal Ligation - Immunizations Immunizations up to date: Yes Hx Diphtheria, Pertussis, Tetanus Vaccination: Yes Review of Systems - Review of Systems Notes: REVIEW OF SYSTEMS: CONSTITUTIONAL : Denies fever, chills, or sweats. Denies recent illness. Denies weight loss, recent hospitalizations. EENT: Denies visual changes, eye pain. Denies nasal or sinus congestion or discharge. Denies sore throat, oral lesions, difficulty swallowing. CARDIOVASCULAR: Denies chest pain. Denies palpitations. Denies lower extremity edema. RESPIRATORY: Denies cough, cold, or chest congestion. Denies shortness of breath, wheezing. GASTROINTESTINAL: Denies abdominal distention. Denies blood in vomitus, stools, or per rectum. Denies black, tarry stools. Denies constipation. GENITOURINARY: Denies difficulty urinating, painful urination, frequency, blood in urine, or vaginal discharge. MUSCULOSKELETAL: Denies back or neck pain or stiffness. Denies joint pain or swelling. SKIN: Denies rash, lesions or sores. HEMATOLOGIC : Denies easy bruising or bleeding. LYMPHATIC: Denies swollen glands. NEUROLOGICAL: Denies confusion or altered mental status. Denies passing out or loss of consciousness. Denies dizziness or lightheadedness. Denies headache. Denies weakness or paralysis. Denies problems difficulty with ambulation, slurred speech. Denies sensory loss, numbness, or tingling. Denies seizures. PSYCHIATRIC: Denies anxiety or stress. Denies depression, suicidal ideation, or homicidal ideation. Denies visual or auditory hallucinations. Physical Exam - Vital signs Vitals: Temp Pulse Resp BP Pulse Ox 99.3 F 87 24 H 118/73 99 02/14/18 12:58 02/14/18 12:58 02/14/18 12:58 02/14/18 12:58 02/14/18 12:58 - Notes Notes: PHYSICAL EXAMINATION: GENERAL: Well-appearing, well-nourished and in no acute distress. HEAD: Atraumatic, normocephalic. EYES: Pupils equal round and reactive to light, extraocular movements intact, conjunctiva are normal. ENT: Nares patent, oropharynx clear without exudates. Moist mucous membranes. NECK: Normal range of motion, supple without lymphadenopathy LUNGS: Breath sounds clear to auscultation bilaterally and equal. No wheezes rales or rhonchi. HEART: Regular rate and rhythm without murmurs ABDOMEN: Soft, nontender, nondistended abdomen. No guarding, no rebound. No masses appreciated. Female : deferred Musculoskeletal: Normal range of motion, no pitting or edema. No cyanosis. NEUROLOGICAL: Cranial nerves grossly intact. Normal speech, normal gait. Normal sensory, motor exams PSYCH: Normal mood, normal affect. SKIN: Warm, Dry, normal turgor, no rashes or lesions noted. Course - Re-evaluation Re-evalutation: Laboratory 02/14/18 13:50 Urine Color YELLOW Urine Appearance CLEAR Urine pH 6.0 Ur Specific [place] 1.016 Urine Protein NEGATIVE Urine Glucose (UA) NEGATIVE Urine Ketones NEGATIVE Urine Blood NEGATIVE Urine Nitrite NEGATIVE Urine Bilirubin NEGATIVE Urine Urobilinogen NEGATIVE Ur Leukocyte Esterase NEGATIVE Urine WBC (Auto) 1 Urine RBC (Auto) 1 Squamous Epi Cells Auto 2 Urine Mucus (Auto) RARE Urine Ascorbic Acid NEGATIVE Urine HCG, Qual NEGATIVE 02/14/18 13:26 27-year-old female with hypertension, migraine headaches presents with complaint of nausea, one episode of vomiting and diarrhea that started this morning. Upon arrival vital signs reviewed. Patient is afebrile, normotensive and not hypoxic. She does not appear toxic she does appear uncomfortable she does not appear dehydrated. Patient received Zofran, Pepcid, Imodium and Benadryl during her ED course. Urinalysis is within normal limits. No evidence of urinary tract infection or dehydration. On reevaluation patient reports improved her headache, nausea. She was able to tolerate fluids prior to discharge. Patient was advised to drink fluids, Gatorade, Pedialyte. She was encouraged to return to the emergency room if nausea and vomiting persists or she develops abdominal pain. Patient provided the opportunity to ask questions, and express concerns. Discharge instructions discussed. Patient is agreeable with discharge home. Return indications explained and discussed with the patient who displays understanding. Patient encouraged to return to the emergency department immediately with any concerns. 02/14/18 13:27 02/14/18 15:33 02/14/18 15:34 - Vital Signs Vital signs: Temp Pulse Resp BP Pulse Ox 98.3 F 64 16 133/84 H 100 02/14/18 14:37 02/14/18 14:37 02/14/18 14:37 02/14/18 14:37 02/14/18 14:37 Discharge - Discharge Clinical Impression: Nausea vomiting and diarrhea Condition: Good Disposition: HOME, SELF-CARE Instructions: Prescribed Antidiarrhea Medications ([facility]), Antinausea Medication ([facility]), Diarrhea, Nonspecific ([facility]), Headache ([facility]), Viral Syndrome ([facility]), Vomiting ([facility]) Additional Instructions: Follow up with your physician tomorrow for further care or return to the ED IMMEDIATELY if symptoms worsen or new concerns occur. If you cannot afford to follow up with your primary care physician a list of low cost clinics have been provided at the end of your discharge papers as well. Prescriptions: Famotidine [Pepcid 40 mg Tablet] 40 mg PO DAILY #7 tablet Loperamide HCl [Anti-Diarrhea] 2 mg PO Q6H PRN #10 tablet PRN Reason: Diarrhea Ondansetron [Zofran Odt 4 mg Tablet] 1 tab PO Q4H PRN #15 tab.rapdis PRN Reason: For Nausea/Vomiting Referrals: EVIE AUGUSTIN MD [Primary Care Provider] - Follow up in 3-5 days
[2018-02-14 14:13] LABS: APPEARANCE,URINE CLEAR; BILIRUBIN,URINE NEGATIVE (NEGATIVE); COLOR,URINE YELLOW; GLUCOSE, URINE NEGATIVE (NEGATIVE); KETONES,URINE NEGATIVE (NEGATIVE); LEUKOCYTE ESTERASE,URINE NEGATIVE (NEGATIVE); NITRITE,URINE NEGATIVE (NEGATIVE); PROTEIN,URINE NEGATIVE (NEGATIVE); URINE SPECIFIC GRAVITY 1.016; UROBILINOGEN,URINE NEGATIVE mg/dL (<2.0)
[2018-02-14 15:01] VITALS: BP 133/84
== END 2018-02-14 14:39 | disposition home or self-care (01) ==
LOC: ER 12:53
DX: R11.2 Nausea with vomiting, unspecified (principal); R19.7 Diarrhea, unspecified; R53.1 Weakness; R51 Headache; I10 Essential (primary) hypertension; Z98.51 Tubal ligation status
CPT/HCPCS: 99284; 81025; 81001; J3490 ×3; S0119

== ENCOUNTER 2018-03-03 13:56 | Emergency (ER) | payer MEDICAID ==
[2018-03-03 14:15] VITALS: BP 119/83
--- NOTE | 2018-03-03 15:24 | ER Document Report ---
ED Skin Rash/Insect Bite/Abscs - General Chief Complaint: Insect Bite Stated Complaint: POSSIBLE RASH Time Seen by Provider: 03/03/18 15:13 Mode of Arrival: Ambulatory Information source: Patient Notes: 27-year-old female presented ED insect bites to the back of the left thigh She states that she noted the bites yesterday and they have become more itchy and a little burning. There is no inflammation no fevers. Patient states it is very hard for her to work at [employer] with these itchy burning insect bites to her posterior left thigh. She is alert and oriented respirations regular unlabored speaking with full sentences and walking with a even steady gait. Patient has no reason or need for any laboratory values or x-rays at this time. These are insect bites to her legs. TRAVEL OUTSIDE OF THE [place] IN LAST 30 DAYS: No - HPI Patient complains to provider of: Insect bite Onset: Yesterday Onset/Duration: Gradual Quality of pain: Burning Severity: Moderate Pain Level: 4 Skin Character: Erythema - Erythematous insect bites to the left thigh 7 areas Skin Temperature: Hot Quality of rash: Itchy, Painful Identify cause: Yes - Insect bites Exacerbated by: Denies Relieved by: Denies Similar symptoms previously: Yes Recently seen / treated by doctor: No - Related Data Allergies/Adverse Reactions: amoxicillin Allergy (Verified 03/03/18 14:00) ibuprofen [From Motrin] Allergy (Verified 03/03/18 14:00) Past Medical History - General Information source: Patient - Social History Smoking Status: Never Smoker Cigarette use (# per day): No Chew tobacco use (# tins/day): No Smoking Education Provided: No Frequency of alcohol use: None Drug Abuse: None Lives with: Family Family History: Hypertension Patient has suicidal ideation: No Patient has homicidal ideation: No - Past Medical History Cardiac Medical History: Reports: Hx Hypertension Pulmonary Medical History: Reports: Hx Asthma, Hx Pneumonia EENT Medical History: Reports: None Neurological Medical History: Reports: Hx Migraine Endocrine Medical History: Reports: Hx Hypothyroidism Renal/ Medical History: Reports: None Malignancy Medical History: Reports: None GI Medical History: Reports: None Musculoskeltal Medical History: Reports None Skin Medical History: Reports None Psychiatric Medical History: Reports: Hx Depression Traumatic Medical History: Reports: None Infectious Medical History: Reports: None Past Surgical History: Reports: Hx Section - x4, Hx Tubal Ligation - Immunizations Immunizations up to date: Yes Hx Diphtheria, Pertussis, Tetanus Vaccination: Yes Review of Systems - Review of Systems Constitutional: No symptoms reported EENT: No symptoms reported Cardiovascular: No symptoms reported Respiratory: No symptoms reported Gastrointestinal: No symptoms reported Genitourinary: No symptoms reported Female Genitourinary: No symptoms reported Musculoskeletal: No symptoms reported Skin: Other - Insect bites to the posterior left thigh 7 red warm no signs or symptoms of infection Hematologic/Lymphatic: No symptoms reported Neurological/Psychological: No symptoms reported -: Yes All other systems reviewed and negative Physical Exam - Vital signs Vitals: Temp Pulse Resp BP Pulse Ox 98.7 F 87 16 119/83 99 03/03/18 14:09 03/03/18 14:09 03/03/18 14:09 03/03/18 14:09 03/03/18 14:09 Interpretation: Normal - General General appearance: Appears well, Alert - HEENT Head: Normocephalic, Atraumatic Eyes: Normal Pupils: PERRL - Respiratory Respiratory status: No respiratory distress Chest status: Nontender Breath sounds: Normal Chest palpation: Normal - Cardiovascular Rhythm: Regular Heart sounds: Normal auscultation Murmur: No - Abdominal Inspection: Normal Distension: No distension Bowel sounds: Normal Tenderness: Nontender Organomegaly: No organomegaly - Back Back: Normal, Nontender - Extremities General upper extremity: Normal inspection, Nontender, Normal color, Normal ROM , Normal temperature General lower extremity: Normal inspection, Nontender, Normal color, Normal ROM , Normal temperature, Normal weight bearing. No: Jessica's sign - Neurological Neuro grossly intact: Yes Cognition: Normal Orientation: AAOx4 Monty Coma Scale Eye Opening: Spontaneous Cobb Coma Scale Verbal: Oriented Cobb Coma Scale Motor: Obeys Commands Monty Coma Scale Total: 15 Speech: Normal Motor strength normal: LUE, RUE, LLE, RLE Sensory: Normal - Psychological Associated symptoms: Normal affect, Normal mood - Skin Skin Temperature: Warm Skin Moisture: Dry Skin Color: Normal Location of irregularity: Extremities - 7 red erythematous insect bites to the posterior left thigh. No signs or symptoms of infection or drainage. Irregularity with: Tenderness Course - Re-evaluation Re-evalutation: 03/03/18 15:28 She was encouraged to use Tylenol for the pain and Benadryl Zyrtec or Claritin for the antihistamine reaction and to use either Ashlee Caladryl Benadryl or calamine lotion for the itching as well as 1% cortisone cream. Patient was able to verbalize understanding and agreement with treatment plan. Patient to follow-up with her primary doctor. - Vital Signs Vital signs: Temp Pulse Resp BP Pulse Ox 98.7 F 87 16 119/83 99 03/03/18 14:03/03/18 14:03/03/18 14:03/03/18 14:03/03/18 14:09 Discharge - Discharge Clinical Impression: Insect bite Qualifiers: Encounter type: initial encounter Qualified Code(s): W57.XXXA - Bitten or stung by nonvenomous insect and other nonvenomous arthropods, initial encounter Condition: Stable Disposition: HOME, SELF-CARE Additional Instructions: Insect Bites You have been bitten by an insect. These bites can cause two types of swelling: an initial swelling due to insect saliva or injected poison, and a late reaction due to your body's allergic reaction. This initial local reaction may be uncomfortable but is not dangerous. Often there's an itchy "hive" at the bite location. This is treated with antihistamines, cold compresses, and resting the affected body part. The later reaction often develops about the second day. The entire area becomes very swollen, red, itchy, and tender. This is an allergic reaction. Your body is attacking the leftover insect saliva or venom. This type of allergy is unpleasant, but not dangerous. We treat this swelling with cortisone -type medicine. Sometimes we use antibiotics if we're worried about infection. Antihistamines help with the itch. If you develop a fever, chills, a red streak, or swollen glands in the area of the bite, infection may be starting. Return at once. Acetaminophen Acetaminophen may be taken for pain relief or fever control. It's much safer than aspirin, offering a wider range of "safe" dosages. It is safe during . Some brand names are Tylenol, Panadol, Datril, Anacin 3, Tempra, and Liquiprin. Acetaminophen can be repeated every four hours. The following are maximum recommended dosages: WEIGHT Dose Drops Elixir Chewable( 80mg) (LBS.) drprs=droppers tsp=teaspoon 6 40 mg .4 ml (1/2) 6-11 80 mg .8 ml (full) 1/2 tsp 1 tab 12-16 120 mg 1 1/2 drprs 3/4 tsp 1 1/2 tabs 17-23 160 mg 2 drprs 1 tsp 2 tabs 24-30 240 mg 3 drprs 1 1/2 tsp 3 tabs 30-35 320 mg 2 tsp 4 tabs 36-41 360 mg 2 1/4 tsp 4 1 /2 tabs 42-47 400 mg 2 1/2 tsp 5 tabs 48-53 480 mg 3 tsp 6 tabs 54-59 520 mg 3 1/4 tsp 6 1 /2 tabs 60-64 560 mg 3 1/2 tsp 7 tabs 65-70 600 mg 3 3/4 tsp 7 1 /2 tabs 71-76 640 mg 4 tsp 8 tabs 77-82 720 mg 4 1/2 tsp 9 tabs 83-88 800 mg 5 tsp 10 tabs >89 pounds or adults 650 mg to 900 mg Acetaminophen can be repeated every four hours. Maximum daily dose not to exceed 4000 mg. These maximum recommended dosages are slightly higher than the dosages written on the product container, but these dosages are very safe and well below the toxic dosage for acetaminophen. Diphenhydramine The use of diphenhydramine (Benadryl) has been recommended to control allergic symptoms. The 25 mg strength is available over- the-counter, as well as the elixir. This antihistamine is used for many symptoms. It's useful for itching, watering eyes and nose, allergic swelling, hives, and insect stings. The medication can be repeated four times daily. Age Elixir (12.5 mg/tsp) 25 mg pill 1 yr 1/4 tsp 2-3 yr 1/2 tsp 4-8 yr 1 tsp 9-14 yr 2 tsp one tab adult 1-2 tabs Antihistamines may cause drowsiness, especially with the first dose. Do not operate machinery or drive while under the effects of the medication. Do not combine the medication with alcohol, or with any other medication without talking to your doctor. You could use Caladryl lotion, Benadryl lotion, or [id number] steroid 1% cream to these insect bites for comfort. Also use Tylenol and Benadryl. FOLLOW-UP CARE: If you have been referred to a physician for follow-up care, call the physician s office for an appointment as you were instructed or within the next two days. If you experience worsening or a significant change in your symptoms, notify the physician immediately or return to the Emergency Department at any time for re-evaluation. Forms: Return to Work Referrals: EVIE AUGUSTIN MD [Primary Care Provider] - Follow up as needed
== END 2018-03-03 15:27 | disposition home or self-care (01) ==
LOC: ER 13:56
DX: S70.362A Insect bite (nonvenomous), left thigh, initial encounter (principal); W57.XXXA Bitten or stung by nonvenomous insect and other nonvenomous arthropods, initial encounter; I10 Essential (primary) hypertension; J45.909 Unspecified asthma, uncomplicated; Z88.0 Allergy status to penicillin; Z88.6 Allergy status to analgesic agent
CPT/HCPCS: 99281

== ENCOUNTER → 2018-03-30 | Outpatient (CLI) | payer MEDICAID ==
[2018-03-30 10:19] LABS: FREE T3 3.64 pg/mL (2.77-5.27); FREE T4 (FREE THYROXINE) 1.09 ng/dL (0.78-2.19)
[2018-03-30 10:33] LABS: THYROID STIMULATING HORMONE 3.42 uIU/mL (0.47-4.68)
[2018-03-31 08:25] LABS: THYROGLOBULIN AB <1.0 IU/mL (0.0-0.9); THYROID PEROXIDASE (TPO) AB 15 IU/mL (0-34)
== END ==
LOC: OD 08:34
PROVIDERS: ATTEND Surgery
DX: E07.9 Disorder of thyroid, unspecified (principal)
CPT/HCPCS: 36415; 84439; 84443; 84481; 86376; 86800

== ENCOUNTER → 2018-03-30 | Outpatient (CLI) | payer MEDICAID ==
--- NOTE | 2018-03-30 10:13 | RADIOLOGY REPORT (SQ) ---
EXAM DESCRIPTION: CT SOFT TISSUE NECK WITH COMPLETED DATE/TIME: 03/30/2018 9:17 am REASON FOR STUDY: THYROID MASS E07.9 DISORDER OF THYROID, UNSPECIFIED COMPARISON: CT chest dated 07/30/2017. Ultrasound thyroid dated 07/31/2017. TECHNIQUE: Post IV contrasted scanning from skull base through lung apices with review of bone, soft tissue and lung windows. Reconstructed coronal and sagittal MPR images reviewed. All images stored on PACS. All CT scanners at this facility use dose modulation, iterative reconstruction, and/or weight based d osing when appropriate to reduce radiation dose to as low as reasonably achievable (ALARA). [facility]: Dose Right [facility]: CareDose [facility]: Dose Right [facility]: Teradose 4D [facility]: Riidr CONTRAST TYPE AND DOSE: contrast/concentration: Isovue 370.00 mg/ml; Total Contrast Delivered: 75.0 ml; Total Saline Delivered: 55.0 ml RENAL FUNCTION: Creatinine 1.0. RADIATION DOSE: . LIMITATIONS: None. FINDINGS: SKULL BASE: Intact. MAJOR SALIVARY GLANDS: No solid or cystic masses. No inflammatory changes. LYMPHADENOPATHY: No adenopathy. MUCOSAL MASSES OR ASYMMETRY: No mucosal masses or asymmetry. LARYNX/CORDS: No abnormal findings. VASCULAR STRUCTURES: The major vessels are patent. LUNG APICES: Clear. BONES: Intact. THYROID: Heterogenous mass in the right lobe, best demonstrated on the coronal image. AP measurement 3.6 cm, transverse measurement 2.8 cm, and craniocaudal measurement 4.1 cm. Left lobe of the thyroi d unremarkable. PARANASAL SINUSES: Clear. OTHER: No other significant finding. IMPRESSION: HETEROGENOUS MASS IN THE RIGHT LOBE OF THE THYROID DESCRIBED. MEASUREMENTS ARE SLIGH TLY LARGER COMPARED TO PRIOR ULTRASOUND IN JULY 2017 BUT SOME OF THIS MAY BE DUE TO DIFFERENCES B ETWEEN THE TWO SCANS. REPORTED BENIGN BIOPSY 2 MONTHS AGO. NO OTHER SIGNIFICANT FINDINGS IN THE NEC K. TECHNICAL DOCUMENTATION: JOB ID: [id number] Quality ID # [id number]: Final reports with documentation of one or more dose reduction techniques (e.g., Au tomated exposure control, adjustment of the mA and/or kV according to patient size, use of iterative reconstruction technique) 2010 [employer]- All Rights Reserved Reading location - IP/workstation name: [email or web address]
== END ==
LOC: RAD 08:47
PROVIDERS: ATTEND Surgery
DX: E07.9 Disorder of thyroid, unspecified (principal)
CPT/HCPCS: 70491; 82565

== ENCOUNTER 2018-04-04 03:58 | Emergency (ER) | payer MEDICAID ==
[2018-04-04 05:38] LABS: ABSOLUTE BASOPHILS # (AUTO) 0.1 10^3/uL (0.0-0.2); ABSOLUTE EOSINOPHILS # (AUTO) 0.6 10^3/uL (0.0-0.6); ABSOLUTE LYMPHOCYTES (AUTO) 2.9 10^3/uL (0.5-4.7); ABSOLUTE MONOCYTES (AUTO) 0.5 10^3/uL (0.1-1.4); ABSOLUTE NEUT (AUTO) 3.5 10^3/uL (1.7-8.2); BASOPHILS % (AUTO) 1.3 % (0-2); EOSINOPHILS % (AUTO) 7.6 % (0-6); HEMOGLOBIN 11.1 g/dL (12.0-15.5); LYMPHOCYTES % (AUTO) 38.2 % (13-45); MEAN CORPUSCULAR HEMOGLOBIN 23.9 pg (27.0-33.4); MEAN CORPUSCULAR HGB CONC 32.5 g/dL (32.0-36.0); MEAN CORPUSCULAR VOLUME 74 fl (80-97); MONOCYTES % (AUTO) 6.8 % (3-13); PLATELET COUNT 349 10^3/uL (150-450); RED BLOOD COUNT 4.63 10^6/uL (3.72-5.28); RED CELL DISTRIBUTION WIDTH 19.4 % (11.5-14.0); SEGMENTED NEUTROPHILS % (AUTO) 46.1 % (42-78); TOTAL CELLS COUNTED % (AUTO) 100 %; WHITE BLOOD COUNT 7.6 10^3/uL (4.0-10.5)
--- NOTE | 2018-04-04 06:51 | ER Document Report ---
ED General - General Chief Complaint: Neck Swelling Stated Complaint: NECK PAIN Time Seen by Provider: 04/04/18 06:45 TRAVEL OUTSIDE OF THE [place] IN LAST 30 DAYS: No - HPI Notes: 27-year-old female with right sided neck/thyroid mass presents with pain and voice changes. Patient's had this now for at least a couple of months, she is seen [facility] as an outpatient. Most recently she had a contrasted neck CT which shows a heterogeneous right thyroid mass. She indicates that she has had a "cut open" and was told it was benign. She was advised to come to the emergency department if she had any problems. She states for the last week she has had some increased pain some mild voice changes and it is slightly harder to swallow. She is breathing normally. Handling secretions. She claims she does not have any thyroid dysfunction history. No unplanned weight loss. No other modifying factors, no other associated symptoms, no other provocative or palliative factors. Gradual in onset - Related Data Allergies/Adverse Reactions: amoxicillin Allergy (Verified 03/03/18 14:00) ibuprofen [From Motrin] Allergy (Verified 03/03/18 14:00) Past Medical History - Social History Smoking Status: Unknown if Ever Smoked Chew tobacco use (# tins/day): No Drug Abuse: None Family History: Hypertension Patient has suicidal ideation: No Patient has homicidal ideation: No - Past Medical History Cardiac Medical History: Reports: Hx Hypertension Pulmonary Medical History: Reports: Hx Asthma, Hx Pneumonia Neurological Medical History: Reports: Hx Migraine Renal/ Medical History: Denies: Hx Peritoneal Dialysis Psychiatric Medical History: Reports: Hx Depression Past Surgical History: Reports: Hx Section - x4, Hx Tubal Ligation - Immunizations Immunizations up to date: Yes Hx Diphtheria, Pertussis, Tetanus Vaccination: Yes Review of Systems - Review of Systems Notes: Review of systems as in the history of present illness, otherwise negative x 10 systems. Physical Exam - Vital signs Vitals: Temp Pulse Resp BP Pulse Ox 98.8 F 75 20 148/90 H 100 04/04/18 04:03 04/04/18 04:03 04/04/18 04:03 04/04/18 04:03 04/04/18 04:03 - Notes Notes: General: Well developed . HEENT: Normocephalic, atraumatic. Pupils equal round reactive to light. No JVD. Neck: Right thyroid region has a tender mass, no significant nodularity. No bruit. No erythema. Chest: No trauma. Respiratory: Good air exchange, normal excursion. Cardiac: Regular rhythm. No murmurs or gallops. Abdomen: Soft, benign. Nondistended. Nontender. Back: No asymmetry or gross abnormality. Motor: Grossly normal power and tone. Neurologic: Alert, nonfocal. Cranial nerves II-12 are intact. Sensation intact. Vascular: Well perfused. Normal peripheral pulses. Skin: No petechiae or purpura. Course - Re-evaluation Re-evalutation: 04/04/18 06:50 Well-appearing female with symptomatic worsening of thyroid mass. Will investigate was benign at this point, reevaluate, contact surgery. 04/04/18 09:55 Labs were ordered prior to my evaluation, they are reviewed and CBC and chemistries are unremarkable. Case discussed with Dr. Durán who has evaluated the patient at bedside. He is requested a repeat ultrasound. This ultrasound was performed and shows essentially no significant change in size. Per Dr. Forte, patient will be discharged to follow-up with [facility]. - Vital Signs Vital signs: Temp Pulse Resp BP Pulse Ox 98.8 F 75 20 148/90 H 100 04/04/18 04:03 04/04/18 04:03 04/04/18 04:03 04/04/18 04:03 04/04/18 04:03 - Laboratory Result Diagrams: 04/04/18 05:20 04/04/18 06:57 Laboratory results interpreted by me: 04/04/18 04/04/18 05:20 06:57 Hgb 11.1 L Hct 34.0 L MCV 74 L MCH 23.9 L RDW 19.4 H Eosinophils % 7.6 H Chloride 108 H Discharge - Discharge Clinical Impression: Thyroid mass Condition: Good Disposition: HOME, SELF-CARE Additional Instructions: Follow-up with [facility] as discussed. Referrals: EVIE AUGUSTIN MD [Primary Care Provider] - Follow up as needed
[2018-04-04 07:28] LABS: ALANINE AMINOTRANSFERASE 18 U/L (9-52); ALBUMIN 3.8 g/dL (3.5-5.0); ALKALINE PHOSPHATASE 87 U/L (38-126); ANION GAP 11 (5-19); ASPARTATE AMINO TRANSFERASE 16 U/L (14-36); BILIRUBIN,DIRECT 0.2 mg/dL (0.0-0.4); BILIRUBIN,TOTAL 0.3 mg/dL (0.2-1.3); BLOOD UREA NITROGEN 9 mg/dL (7-20); CALCIUM 9.1 mg/dL (8.4-10.2); CARBON DIOXIDE 24 mmol/L (22-30); CHLORIDE 108 mmol/L (98-107); GLUCOSE 88 mg/dL (75-110); POTASSIUM 4.1 mmol/L (3.6-5.0); SODIUM 142.6 mmol/L (137-145); TOTAL PROTEIN 6.8 g/dL (6.3-8.2)
--- NOTE | 2018-04-04 09:32 | RADIOLOGY REPORT (SQ) ---
EXAM DESCRIPTION: U/S THYROID/SFT TISS HD NECK COMPLETED DATE/TIME: 04/04/2018 9:00 am REASON FOR STUDY: EVALUATE RIGHT THYROID MASS PROGRESSION COMPARISON: None. TECHNIQUE: Dynamic and static headley-scale images acquired of the thyroid gland. Selected additional c olor/power Doppler images recorded. All images stored to PACS. LIMITATIONS: None. FINDINGS: RIGHT LOBE: The right lobe of the thyroid measures 3.4 x 6.8 x 4.1 cm. There is a heterog eneous complex mass in the mid right thyroid gland measuring 3.4 x 4.6 x2.8 cm. Follow-up with ultra sound-guided thyroid aspiration biopsy could be scheduled as further evaluation. LEFT LOBE: The left thyroid gland measures 4.8 x 2.3 x2.3 cm demonstrating normal echogenicity. ISTHMUS: The isthmus measures 0.4 cm. IMPRESSION: Evidence of a heterogeneous complex mass mid right thyroid gland. Follow-up with aspira tion /biopsy with thyroid ultrasound would be useful . COMMENT: . TECHNICAL DOCUMENTATION: JOB ID: [id number] 2010 [employer]- All Rights Reserved Reading location - IP/workstation name: [email or web address]
[2018-04-04 10:08] VITALS: BP 135/89
--- NOTE | 2018-04-04 11:20 | PDOC CONSULTATION ---
Consultation Consult Date: 04/04/18 Consult reason:: pains along right thyroid, post needle biopsy History of Present Illness Admission Date/PCP: EVIE AUGUSTIN MD Patient complains of: pains along right thyroid, post needle biopsy History of Present Illness: LUCI AVILA is a 27 year old female who had right thyroid biopsy a few weeks ago and was told benign. She was by Dr Martin 04/01/18 in the clinic and was apparently told to go to the ED if has persistent thyroid pains or any problems. She has continued right neck pains and some discomfort on swallowing but no breathing problems. Past Medical History Cardiac Medical History: Reports: Hypertension Pulmonary Medical History: Reports: Asthma, Pneumonia Neurological Medical History: Reports: Migraine Psychiatric Medical History: Reports: Depression Past Surgical History Past Surgical History: Reports: Section - x4, Tubal Ligation Social History Smoking Status: Unknown if Ever Smoked Frequency of Alcohol Use: None Hx Recreational Drug Use: No Drugs: None Hx Prescription Drug Abuse: No Family History Family History: Hypertension Parental Family History Reviewed: Yes Children Family History Reviewed: No Sibling(s) Family History Reviewed.: No Medication/Allergy Home Medications: Lisinopril [Prinivil] 20 mg PO DAILY 09/16/17 Olanzapine/Fluoxetine HCl [Symbyax 6-25 mg Capsule] 1 cap PO DAILY 09/16/17 Albuterol Sulfate [Ventolin Hfa] 1 - 2 puff IH Q4 PRN 30 Days #1 hfa.aer.ad Doxycycline Hyclate 100 mg PO BID #14 capsule 09/18/17 Hydrochlorothiazide 25 mg PO DAILY 30 Days #30 tablet 09/18/17 Ipratropium/Albuterol Sulfate [Duoneb 3 ml Ampul] 3 ml NEB RTQ6HP PRN #30 vial.neb 09/18/17 Prednisone [Deltasone 20 mg Tablet] 40 mg PO DAILY 15 Days #15 tablet 09/18/17 Albuterol Sulfate [Proair HFA Inhalation Aerosol 8.5 gm MDI] 2 puff IH Q3HP PRN #1 hfa.aer.ad 12/21/17 Prednisone [Deltasone 20 mg Tablet] 40 mg PO DAILY #8 tablet 12/21/17 Albuterol Sulfate [Albuterol Sulfate 2.5mg/3 mL] 1 vial IH Q4 PRN #30 vial 01/06 Doxycycline Hyclate 100 mg PO BID #14 capsule 01/06/18 Prednisone 60 mg PO DAILY #15 tablet 01/06/18 Prednisone [Deltasone 10 mg Tablet] 10 mg PO ASDIR PRN #39 tablet 01/09/18 Famotidine [Pepcid 40 mg Tablet] 40 mg PO DAILY #7 tablet 02/14/18 Loperamide HCl [Anti-Diarrhea] 2 mg PO Q6H PRN #10 tablet 02/14/18 Ondansetron [Zofran Odt 4 mg Tablet] 1 tab PO Q4H PRN #15 tab.rapdis 02/14/18 Allergies/Adverse Reactions: amoxicillin Allergy (Verified 03/03/18 14:00) ibuprofen [From Motrin] Allergy (Verified 03/03/18 14:00) Review of Systems Constitutional: PRESENT: other - o chills/fever Eyes: PRESENT: other - no visual/hearing problems Cardiovascular: PRESENT: other - no chest pains/dyspnea Gastrointestinal: PRESENT: other - no abdominal pains Genitourinary: PRESENT: other - no dysuria Integumentary: PRESENT: other - no diaphoresis Neurological: PRESENT: other - no weakness Psychiatric: PRESENT: anxiety Hematologic/Lymphatic: PRESENT: other - no easy bruising Physical Exam Vital Signs: Temp Pulse Resp BP Pulse Ox 97.6 F 70 18 135/89 H 99 04/04/18 10:04 04/04/18 10:04 04/04/18 10:04 04/04/18 10:04 04/04/18 10:04 Intake & Output 04/03/18 04/04/18 04/05/18 06:59 06:59 06:59 Weight 100.5 kg General appearance: PRESENT: no acute distress Head exam: PRESENT: atraumatic Eye exam: PRESENT: conjunctiva pink Mouth exam: PRESENT: moist Neck exam: PRESENT: full ROM, tenderness - right thyroid mass, thyromegaly Respiratory exam: PRESENT: clear to auscultation logan Cardiovascular exam: PRESENT: RRR Pulses: PRESENT: normal radial pulses Vascular exam: PRESENT: normal capillary refill GI/Abdominal exam: PRESENT: soft Rectal exam: PRESENT: deferred Extremities exam: PRESENT: full ROM Musculoskeletal exam: PRESENT: ambulatory Neurological exam: PRESENT: alert, oriented to person, oriented to place, oriented to time, oriented to situation Psychiatric exam: PRESENT: appropriate affect Results Laboratory Results: 04/04/18 05:20 04/04/18 06:57 04/04/18 04/04/18 04/04/18 05:20 05:20 05:20 WBC 7.6 RBC 4.63 Hgb 11.1 L Hct 34.0 L MCV 74 L MCH 23.9 L MCHC 32.5 RDW 19.4 H Plt Count 349 Seg Neutrophils % 46.1 Lymphocytes % 38.2 Monocytes % 6.8 Eosinophils % 7.6 H Basophils % 1.3 Absolute Neutrophils 3.5 Absolute Lymphocytes 2.9 Absolute Monocytes 0.5 Absolute Eosinophils 0.6 Absolute Basophils 0.1 Sodium Cancelled Potassium Cancelled Chloride Cancelled Carbon Dioxide Cancelled Anion Gap Cancelled BUN Cancelled Creatinine Cancelled Est GFR ( Amer) Cancelled Est GFR (Non-Af Amer) Cancelled Glucose Cancelled Calcium Cancelled Total Bilirubin Cancelled AST Cancelled ALT Cancelled Alkaline Phosphatase Cancelled Total Protein Cancelled Albumin Cancelled Serum HCG, Qual NEGATIVE 04/04/18 06:57 WBC RBC Hgb Hct MCV MCH MCHC RDW Plt Count Seg Neutrophils % Lymphocytes % Monocytes % Eosinophils % Basophils % Absolute Neutrophils Absolute Lymphocytes Absolute Monocytes Absolute Eosinophils Absolute Basophils Sodium 142.6 Potassium 4.1 Chloride 108 H Carbon Dioxide 24 Anion Gap 11 BUN 9 Creatinine 0.85 Est GFR ( Amer) > 60 Est GFR (Non-Af Amer) > 60 Glucose 88 Calcium 9.1 Total Bilirubin 0.3 AST 16 ALT 18 Alkaline Phosphatase 87 Total Protein 6.8 Albumin 3.8 Serum HCG, Qual Impressions: Thyroid Ultrasound 04/04/18 08:27 IMPRESSION: Evidence of a heterogeneous complex mass mid right thyroid gland. Follow-up with aspiration /biopsy with thyroid ultrasound would be useful . Assessment & Plan - Time Time Spent: 30 to 50 Minutes - Plan Summary Plan Summary: Ultrasound of thyroid gland no apparent change from previous OK to discharge. F/U this week at Surgical clinic c/o Dr Martin
== END 2018-04-04 10:08 | disposition home or self-care (01) ==
LOC: ER 03:58
DX: E07.9 Disorder of thyroid, unspecified (principal); R49.9 Unspecified voice and resonance disorder; M54.2 Cervicalgia; R13.10 Dysphagia, unspecified; I10 Essential (primary) hypertension; J45.909 Unspecified asthma, uncomplicated; Z88.0 Allergy status to penicillin; Z88.6 Allergy status to analgesic agent
CPT/HCPCS: 36415; 76536; 80053; 84703; 85025; 99284

== ENCOUNTER 2018-04-24 20:45 | Inpatient (IN) | payer MEDICAID ==
--- NOTE | 2018-04-24 20:55 | EKG REPORT ---
SEVERITY:- BORDERLINE ECG - SINUS TACHYCARDIA INFERIOR Q WAVES, PROBABLY NORMAL VARIATION : Confirmed by: Ayush Spivey 24-Apr-2018 20:54:55
[2018-04-24] MEDS ORDERED: NORMAL SALINE 1000 ML 1,000 ML IV ONE (21:08)
[2018-04-24] MEDS ORDERED: IPRATROPIUM/ALBUTEROL 0.5-2.5 MG/3 ML AMPUL NEB ONE ×3 (21:08)
[2018-04-24] MEDS ORDERED: METHYLPREDNISOLONE INJ 125 MG/2 ML SDV IV ONE (21:08)
--- NOTE | 2018-04-24 21:10 | ER Document Report ---
ED Respiratory Problem - General Chief Complaint: Breathing Difficulty Stated Complaint: DIFFICULTY BREATHING Time Seen by Provider: 04/24/18 21:04 Notes: Patient is a 27-year-old female with a history of asthma that comes emergency department for chief complaint of difficulty breathing, wheezing, coughing, she states that symptoms started after she was asked as to someone who was smoking. She is a former smoker. She tried her rescue inhaler and then her nebulizer without improvement. She denies sick symptoms beforehand, denies vomiting, chest pain, fever. Remaining medical history includes hypertension and tubal ligation. She has been hospitalized from asthma but denies ever being intubated. TRAVEL OUTSIDE OF THE [place] IN LAST 30 DAYS: No - Related Data Allergies/Adverse Reactions: amoxicillin Allergy (Verified 03/03/18 14:00) ibuprofen [From Motrin] Allergy (Verified 03/03/18 14:00) Past Medical History - General Information source: Patient - Social History Smoking Status: Former Smoker Frequency of alcohol use: None Drug Abuse: None Lives with: Family Family History: Hypertension - Past Medical History Cardiac Medical History: Reports: Hx Hypertension Pulmonary Medical History: Reports: Hx Asthma, Hx Pneumonia Neurological Medical History: Reports: Hx Migraine Renal/ Medical History: Denies: Hx Peritoneal Dialysis Psychiatric Medical History: Reports: Hx Depression Past Surgical History: Reports: Hx Section - x4, Hx Tubal Ligation - Immunizations Immunizations up to date: Yes Hx Diphtheria, Pertussis, Tetanus Vaccination: Yes Review of Systems - Review of Systems Constitutional: No symptoms reported EENT: No symptoms reported Cardiovascular: No symptoms reported Respiratory: See HPI Gastrointestinal: No symptoms reported Genitourinary: No symptoms reported Female Genitourinary: No symptoms reported Musculoskeletal: No symptoms reported Skin: No symptoms reported Hematologic/Lymphatic: No symptoms reported Neurological/Psychological: No symptoms reported Physical Exam - Vital signs Vitals: Temp Pulse Resp BP Pulse Ox 99.4 F 130 H 26 H 147/100 H 100 04/24/18 20:56 04/24/18 20:56 04/24/18 20:56 04/24/18 20:56 04/24/18 20:56 - Notes Notes: GENERAL: Alert, mild respiratory distress HEAD: Normocephalic, atraumatic. EYES: Pupils equal, round, and reactive to light. Extraocular movements intact. ENT: Oral mucosa moist, tongue midline. Oropharyngeal exam unremarkable. NECK: Full range of motion. Supple. Trachea midline. LUNGS: Decreased breath sounds and expiratory wheezes throughout, mild tachypnea , difficulty completing sentences, however no severe tachypnea or severe distress. HEART: Tachycardia, normal rhythm, no murmur ABDOMEN: Soft, non-tender. Non-distended. Bowel sounds present in all 4 quadrants. EXTREMITIES: Moves all 4 extremities spontaneously. No edema, normal radial and dorsalis pedis pulses bilaterally. No cyanosis. BACK: no cervical, thoracic, lumbar midline tenderness. No saddle anesthesia, normal distal neurovascular exam. NEUROLOGICAL: Alert and oriented x3. Normal speech. [cranial nerves II through XII grossly intact]. SKIN: Warm, dry, normal turgor. No rashes or lesions noted. Course - Re-evaluation Re-evalutation: On initial evaluation patient with tachypnea, difficulty completing sentences, expiratory wheezes, intermittent cough suggesting bronchospasm. No hypoxia. No severe distress. Initiating duo nebs, magnesium, Solu-Medrol, will closely monitor. Patient is improved after 3 duo nebs, magnesium, Solu-Medrol, IV fluids, however she still has wheezing and with exertion she gets very short of breath. Appears to have not completely recovered from her asthma exacerbation. Chest x-ray is unremarkable. However at rest patient smiling, can finish complete sentences, has no tachypnea. Patient uncomfortable going home at this time. Will discuss with hospitalist for admission for observation secondary to persistent symptoms from her asthma exacerbation. Discussed with hospitalist, Dr. Mercado, patient will be admitted to telemetry observation. - Vital Signs Vital signs: Temp Pulse Resp BP Pulse Ox 99.4 F 130 H 25 H 134/86 H 100 04/24/18 20:56 04/24/18 20:56 04/25/18 01:01 04/25/18 01:01 04/25/18 01:01 - Laboratory Result Diagrams: 04/24/18 21:11 04/24/18 21:11 Discharge - Discharge Clinical Impression: Cough, Shortness of breath, Wheezing Asthma exacerbation Qualifiers: Asthma severity: severe Asthma persistence: unspecified Qualified Code(s): J45.901 - Unspecified asthma with (acute) exacerbation Condition: Stable Disposition: ADMITTED OBSERVATION Admitting Provider: Hospitalist Unit Admitted: Telemetry
[2018-04-24] MEDS: MAGNESIUM SULFATE/D5W 1 GM/100 ML RTUPB IV SCH ×2 (21:19→21:41)
--- NOTE | 2018-04-24 21:39 | RADIOLOGY REPORT (SQ) ---
EXAM DESCRIPTION: CHEST SINGLE VIEW COMPLETED DATE/TIME: 04/24/2018 9:30 pm REASON FOR STUDY: shortness of breath COMPARISON: 01/09/2018 EXAM PARAMETERS: NUMBER OF VIEWS: One view. TECHNIQUE: Single frontal radiographic view of the chest acquired. RADIATION DOSE: NA LIMITATIONS: None. FINDINGS: LUNGS AND PLEURA: No opacities, masses or pneumothorax. No pleural effusion. MEDIASTINUM AND HILAR STRUCTURES: No masses. Contour normal. HEART AND VASCULAR STRUCTURES: Heart normal in size. Normal vasculature. BONES: No acute findings. HARDWARE: None in the chest. OTHER: No other significant finding. IMPRESSION: NO ACUTE RADIOGRAPHIC FINDING IN THE CHEST. TECHNICAL DOCUMENTATION: JOB ID: [id number] [employer]- All Rights Reserved Reading location - IP/workstation name: [email or web address]
[2018-04-24] MEDS ORDERED: HYDROCODONE/ACETAMINOPHEN 5-325 MG TABLET PO ONE (21:56)
[2018-04-24] MEDS ORDERED: PROMETHAZINE HCL INJ 25 MG/1 ML VIAL IV PRN (23:36)
--- NOTE | 2018-04-25 01:52 | PDOC H&P ---
History of Present Illness Admission Date/PCP: 04/24/18 23:02 EVIE AUGUSTIN MD Patient complains of: SOB History of Present Illness: LUCI AVILA is a 27 year old female who comes to the emergency department with 1 day of progressive shortness of breath, mild dry cough, wheezing, chest tightness, nausea and vomiting with yellowish secretions. Has chills but no fever. Family unable to speak in full sentences with paroxysms of persistent cough, mild rhinorrhea and states that exposure to cold, only trigger symptoms. He was using her usual bronchodilators at home with no improvement, reason she came to the emergency department. Chest x-ray unremarkable. Symptoms improved but is still with moderate bilateral wheezing, felt safe to admit her for further treatment. Past Medical History Cardiac Medical History: Reports: Hypertension Pulmonary Medical History: Reports: Asthma, Pneumonia Neurological Medical History: Reports: Migraine Psychiatric Medical History: Reports: Depression Past Surgical History Past Surgical History: Reports: Section - x4, Tubal Ligation Social History Smoking Status: Former Smoker Frequency of Alcohol Use: None Hx Recreational Drug Use: No Drugs: None Hx Prescription Drug Abuse: No Family History Family History: Hypertension Parental Family History Reviewed: Yes - as above Children Family History Reviewed: NA Sibling(s) Family History Reviewed.: NA Medication/Allergy Home Medications: Lisinopril [Prinivil] 20 mg PO DAILY 09/16/17 Olanzapine/Fluoxetine HCl [Symbyax 6-25 mg Capsule] 1 cap PO DAILY 09/16/17 Albuterol Sulfate [Ventolin Hfa] 1 - 2 puff IH Q4 PRN 30 Days #1 hfa.aer.ad Doxycycline Hyclate 100 mg PO BID #14 capsule 09/18/17 Hydrochlorothiazide 25 mg PO DAILY 30 Days #30 tablet 09/18/17 Ipratropium/Albuterol Sulfate [Duoneb 3 ml Ampul] 3 ml NEB RTQ6HP PRN #30 vial.neb 09/18/17 Prednisone [Deltasone 20 mg Tablet] 40 mg PO DAILY 15 Days #15 tablet 09/18/17 Albuterol Sulfate [Proair HFA Inhalation Aerosol 8.5 gm MDI] 2 puff IH Q3HP PRN #1 hfa.aer.ad 12/21/17 Prednisone [Deltasone 20 mg Tablet] 40 mg PO DAILY #8 tablet 12/21/17 Albuterol Sulfate [Albuterol Sulfate 2.5mg/3 mL] 1 vial IH Q4 PRN #30 vial 01/06 Doxycycline Hyclate 100 mg PO BID #14 capsule 01/06/18 Prednisone 60 mg PO DAILY #15 tablet 01/06/18 Prednisone [Deltasone 10 mg Tablet] 10 mg PO ASDIR PRN #39 tablet 01/09/18 Famotidine [Pepcid 40 mg Tablet] 40 mg PO DAILY #7 tablet 02/14/18 Loperamide HCl [Anti-Diarrhea] 2 mg PO Q6H PRN #10 tablet 02/14/18 Ondansetron [Zofran Odt 4 mg Tablet] 1 tab PO Q4H PRN #15 tab.rapdis 02/14/18 Allergies/Adverse Reactions: amoxicillin Allergy (Verified 03/03/18 14:00) ibuprofen [From Motrin] Allergy (Verified 03/03/18 14:00) Review of Systems Review of Systems: As outline above, others negative Physical Exam Vital Signs: Temp Pulse Resp BP Pulse Ox 99.4 F 130 H 23 H 129/87 H 99 04/24/18 20:56 04/24/18 20:56 04/24/18 23:01 04/24/18 23:01 04/24/18 23:01 Additional comments: General appearance: Well-developed, well-nourished, alert and cooperative, and appears to be in no acute distress Head: Normocephalic Eyes: PEERL, EOMI, vision is grossly intact. Ears: External auditory canal and tympanic membranes clear, hearing grossly intact. Nose: No nasal discharge. Throat: Oral cavity and pharynx normal. No inflammation, swelling, exudate or lesions. Neck: Neck supple, nontender without lymphadenopathy, masses or thyromegaly. Cardiac: Normal S1 and S2. No S3, S4 or murmurs. Rhythm is regular. There is no peripheral edema, cyanosis or pallor. Extremities are warm and well perfused. Capillary refill is less than 2 seconds. No carotid bruits. Lungs: Clear to auscultation and percussion without rales, rhonchi, wheezing or diminished breath sounds. Not using accessory muscles. Abdomen: Positive bowel sounds. Soft. Nondistended, nontender. No guarding or rebound. No masses. No hepatosplenomegaly Extremities: No significant deformity or joint abnormality. No edema. Peripheral pulses intact. No varicosities. Neurological: Cranial nerves II through XII grossly intact. Strength and sensation symmetric and intact throughout. Reflexes 2+ throughout. Skin: Skin normal color, texture and turgor with no lesions or eruptions, warm and dry. Psychiatric: The mental examination revealed the patient was oriented to person , place, and time. The patient was able to demonstrate good judgment on recent , without hallucinations, abnormal affect or abnormal behaviors. Results Impressions: Chest X-Ray 04/24/18 21:08 IMPRESSION: NO ACUTE RADIOGRAPHIC FINDING IN THE CHEST. Assessment & Plan - Diagnosis (1) Asthma exacerbation Qualifiers: Asthma severity: severe Asthma persistence: unspecified Qualified Code(s) : J45.901 - Unspecified asthma with (acute) exacerbation Is this a current diagnosis for this admission?: Yes Plan: We will keep the patient under telemetry monitoring, Solu-Medrol 60 mg every 8 hours, nebulizer treatments as needed, oxygen protocol as needed. Place order for CBC and BMP. Jack Snider for her persistent cough. (2) Hypertension Is this a current diagnosis for this admission?: Yes Plan: Resume home antihypertensive medications - Time Time Spent: 30 to 50 Minutes - Inpatient Certification Based on my medical assessment, after consideration of the patient's comorbidities, presenting symptoms, or acuity I expect that the services needed warrant INPATIENT care.: Yes I certify that my determination is in accordance with my understanding of Medicare's requirements for reasonable and necessary INPATIENT services [42 CFR 412.3e].: Yes Medical Necessity: Risk of Complication if Not Cared For in Hospital
[2018-04-25 02:16] LABS: ABSOLUTE BASOPHILS # (AUTO) 0.1 10^3/uL (0.0-0.2); ABSOLUTE EOSINOPHILS # (AUTO) 0.7 10^3/uL (0.0-0.6); ABSOLUTE MONOCYTES (AUTO) 0.7 10^3/uL (0.1-1.4); ABSOLUTE NEUT (AUTO) 6.7 10^3/uL (1.7-8.2); BASOPHILS % (AUTO) 0.7 % (0-2); EOSINOPHILS % (AUTO) 6.5 % (0-6); HEMOGLOBIN 11.5 g/dL (12.0-15.5); LYMPHOCYTES % (AUTO) 19.4 % (13-45); MEAN CORPUSCULAR HEMOGLOBIN 24.2 pg (27.0-33.4); MEAN CORPUSCULAR HGB CONC 32.7 g/dL (32.0-36.0); MEAN CORPUSCULAR VOLUME 74 fl (80-97); MONOCYTES % (AUTO) 6.9 % (3-13); PLATELET COUNT 376 10^3/uL (150-450); RED BLOOD COUNT 4.74 10^6/uL (3.72-5.28); RED CELL DISTRIBUTION WIDTH 18.2 % (11.5-14.0); SEGMENTED NEUTROPHILS % (AUTO) 66.5 % (42-78); TOTAL CELLS COUNTED % (AUTO) 100 %; WHITE BLOOD COUNT 10.1 10^3/uL (4.0-10.5)
[2018-04-25] MEDS: IPRATROPIUM/ALBUTEROL 0.5-2.5 MG/3 ML AMPUL NEB PRN ×2 (02:20→10:03)
[2018-04-25] MEDS ORDERED: BENZONATATE 100 MG CAPSULE PO ONE (02:30)
[2018-04-25 03:55] LABS: ANION GAP 13 (5-19); BLOOD UREA NITROGEN 4 mg/dL (7-20); CALCIUM 9.3 mg/dL (8.4-10.2); CARBON DIOXIDE 22 mmol/L (22-30); CHLORIDE 109 mmol/L (98-107); GLUCOSE 110 mg/dL (75-110); POTASSIUM 3.3 mmol/L (3.6-5.0); SODIUM 144.3 mmol/L (137-145)
[2018-04-25 05:15] LABS: HEMATOCRIT 31.9 % (36.0-47.0); HEMOGLOBIN 10.8 g/dL (12.0-15.5); MEAN CORPUSCULAR HEMOGLOBIN 24.5 pg (27.0-33.4); MEAN CORPUSCULAR HGB CONC 33.7 g/dL (32.0-36.0); MEAN CORPUSCULAR VOLUME 73 fl (80-97); PLATELET COUNT 297 10^3/uL (150-450); RED BLOOD COUNT 4.38 10^6/uL (3.72-5.28); RED CELL DISTRIBUTION WIDTH 18.1 % (11.5-14.0); WHITE BLOOD COUNT 10.4 10^3/uL (4.0-10.5)
[2018-04-25] MEDS: METHYLPREDNISOLONE INJ 40 MG/1 ML SDV IV SCH ×3 (05:37→22:03)
[2018-04-25 05:42] LABS: ANION GAP 11 (5-19); BLOOD UREA NITROGEN 4 mg/dL (7-20); CALCIUM 8.6 mg/dL (8.4-10.2); CARBON DIOXIDE 20 mmol/L (22-30); CHLORIDE 110 mmol/L (98-107); GLUCOSE 160 mg/dL (75-110); PHOSPHORUS 3.3 mg/dL (2.5-4.5); SODIUM 141.1 mmol/L (137-145)
[2018-04-25] MEDS: ACETAMINOPHEN 325 MG TABLET PO PRN (08:46)
[2018-04-25] MEDS: BENZONATATE 100 MG CAPSULE PO SCH ×2 (09:09→18:11)
[2018-04-25] MEDS: ENOXAPARIN SODIUM INJ 40 MG/0.4 ML DISP.SYRIN SUBCUT SCH (09:09)
[2018-04-25] MEDS ORDERED: LEVALBUTEROL HCL NEB 0.63 MG/3 ML AMPUL NEB PRN (11:53)
[2018-04-25] MEDS ORDERED: FLUTICASONE/SALMETEROL DISKUS 250-50 MCG/DOSE IH ONE ×2 (13:00→23:43)
[2018-04-25] MEDS ORDERED: FLUTICASONE NASAL SPRAY 50 MCG/SPRY 120 SPRAY/16 GM NASL ONE (13:00)
[2018-04-25] MEDS ORDERED: MONTELUKAST SODIUM 10 MG TABLET PO ONE (13:30)
[2018-04-25] MEDS: LEVALBUTEROL HCL NEB 1.25 MG/3 ML AMPUL NEB SCH ×2 (13:37→20:28)
[2018-04-25] MEDS ORDERED: DIAZEPAM 5 MG TABLET PO PRN (14:30)
[2018-04-25] MEDS: BUSPIRONE HCL 10 MG TABLET PO SCH ×2 (15:31→22:03)
--- NOTE | 2018-04-25 21:01 | PROGRESS NOTE E ---
Progress Note NAME: LUCI AVILA : 1990 AGE: 27Y DATE: 04/25/2018 ROOM: 415 SUBJECTIVE: The patient is lying in bed. She states she that she does feel better in comparison to when she came in. Still feels tight and does have wheezing with exercise, but generally feels better than when she came in. Still feels some heart palpitations. She denies any nausea or vomiting. No diarrhea. No fevers, chills. The patient has been afebrile. Her blood pressures have been in a good range and the patient does not voice any other concerns at this time. BRIEF HISTORY: The patient is a 27-year-old -[place] female with a past medical history of asthma and previous exacerbations, but has not required intubation. The patient presented to the emergency department due to bronchial asthma exacerbation. According to the patient, she normally is quite compliant with her medications, and for long-acting coverage, she takes Qvar. However, in trying to get her children ready to go back to school, the patient had realized that she had run out of her inhaler and kept forgetting to pick it up, and went approximately 4 days without long-acting control medication. The patient was treated in the emergency department with magnesium, IV corticosteroids, with some improvement of symptoms. However, the patient still remained very tight and wheezy. The patient has also been changed over the Xopenex, given the feeling of heart palpitations and tachycardia. Additionally, did add Singulair as well, and the patient has not voiced any other concerns at this time. REVIEW OF SYSTEMS: Negative. MEDICATIONS: Reviewed. OBJECTIVE: GENERAL: The patient is a 27-year-old -[place] female, who is awake, alert and oriented to person, place and time. She is verbal and conversational. Does not appear to be in any acute distress. VITAL SIGNS: Temperature is 98.4, pulse 89, respirations 16, blood pressure is 115/70, oxygen saturation is 100% on 2 liters nasal cannula. SKIN: Warm and dry. No rash. Not diaphoretic. HEENT: Pupils equal, round and reactive to light and accommodation. Conjunctivae are pink. No evidence of JVP. CVS: Heart is regular. There is no murmur or rub. CHEST: The patient does have expiratory wheezes noted throughout both lung nevarez, symmetrical, not currently labored. ABDOMEN: Soft, nontender, nondistended. BACK: No CVA tenderness or sacral edema. EXTREMITIES: No clubbing, cyanosis or edema. PSYCHIATRIC: Appropriate affect. Pleasant mood. DIAGNOSTICS: Lab values are as follows: Hematology obtained on 04/25/2018: WBCs are 2.4, hemoglobin is 10.8, hematocrit is 31.9, platelet count is 297,000. Chemistries obtained on 04/25/2018: Sodium is 141, potassium 4.0, chloride is 110, carbon dioxide is 20, BUN 4, creatinine is 0.64. Glucose 160. Calcium is 8.6, phosphorus 3.3, magnesium is 3.4. IMPRESSION AND PLAN: 1. BRONCHIAL ASTHMA EXACERBATION, WHICH WAS SEVERE. The patient does have underlying persistent asthma. Will continue to monitor the patient on telemetry, given her symptoms of palpitations. Continue IV corticosteroids as well as nebulizers, but transition these over to Xopenex; p.r.n. O2 if needed. The patient is actually restarted on long-acting inhaler as well as Singulair. 2. HYPERTENSION. The patient's blood pressures have actually been a little on the low side. Will hold off on her home antihypertensive medications at this time, shoulder the patient decompensate. DISPOSITION: The patient is a FULL CODE. Pending patient's symptomatology and diagnostic findings, will reevaluate in the a.m. for possible discharge. Time spent on this followup, including assessment, plan, physical examination, patient education and review of records, is 25 minutes. DICTATING PHYSICIAN: CYNDI ROMERO NP [id number] PHY#: [id number] ID: [id number] JOB#: [id number] ACCT: [id number] cc: >
[2018-04-25] MEDS ORDERED: KETOROLAC TROMETHAMINE INJ/PF 30 MG/1 ML SDV IV ONE (21:45)
[2018-04-25] MEDS ORDERED: MIRTAZAPINE 15 MG TABLET PO SCH (22:00)
[2018-04-25] MEDS ORDERED: FLUTICASONE NASAL SPRAY 50 MCG/SPRY 120 SPRAY/16 GM ONE (23:41)
[2018-04-25] MEDS: FLUTICASONE NASAL SPRAY 50 MCG/SPRY 120 SPRAY/16 GM NASL SCH (23:53)
[2018-04-25] MEDS: FLUTICASONE/SALMETEROL DISKUS 250-50 MCG/DOSE IH SCH (23:57)
[2018-04-26] MEDS: BENZONATATE 100 MG CAPSULE PO SCH ×2 (03:12→11:22)
[2018-04-26] MEDS: METHYLPREDNISOLONE INJ 40 MG/1 ML SDV IV SCH (05:35)
[2018-04-26] MEDS: BUSPIRONE HCL 10 MG TABLET PO SCH (05:35)
[2018-04-26] MEDS: ACETAMINOPHEN 325 MG TABLET PO PRN (05:40)
[2018-04-26] MEDS: LEVALBUTEROL HCL NEB 1.25 MG/3 ML AMPUL NEB SCH (08:35)
--- NOTE | 2018-04-26 10:53 | PDOC DISCHARGE SUMMARY ---
General - Admit/Disc Date/PCP Admission Date/Primary Care Provider: 04/24/18 23:02 EVIE AUGUSTIN MD Discharge Date: 04/26/18 - Discharge Diagnosis (1) Asthma exacerbation Is this a current diagnosis for this admission?: Yes (3) Hypertension Is this a current diagnosis for this admission?: Yes - Additional Information Discharge Diet: As Tolerated, Cardiac Discharge Activity: Activity As Tolerated Prescriptions: Albuterol Sulfate [Albuterol Sulfate 2.5mg/3 mL] 2.5 mg IH Q4 PRN #60 each PRN Reason: Benzonatate [Tessalon Perles 100 mg Capsule] 100 mg PO Q8A #21 capsule Fluticasone/Salmeterol [Advair 250-50 Diskus 14 Dose/Diskus] 1 inh IH Q12 #1 inhaler Montelukast Sodium [Singulair 10 mg Tablet] 10 mg PO QHS #30 tablet Prednisone 50 mg PO DAILY #7 tablet Home Medications: Buspirone HCl [Buspar 15 mg Tablet] 15 mg PO Q8 04/25/18 Diazepam [Valium 5 mg Tablet] 5 mg PO DAILYP PRN 04/25/18 Mirtazapine [Remeron 15 mg Tablet] 15 mg PO QHS 04/25/18 Albuterol Sulfate [Albuterol Sulfate 2.5mg/3 mL] 2.5 mg IH Q4 PRN #60 each 04/26 Benzonatate [Tessalon Perles 100 mg Capsule] 100 mg PO Q8A #21 capsule 04/26/18 Fluticasone/Salmeterol [Advair 250-50 Diskus 14 Dose/Diskus] 1 inh IH Q12 #1 inhaler 04/26/18 Montelukast Sodium [Singulair 10 mg Tablet] 10 mg PO QHS #30 tablet 04/26/18 Prednisone 50 mg PO DAILY #7 tablet 04/26/18 History of Present Illness History of Present Illness: LUCI AVILA is a 27 year old female who comes to the emergency department with 1 day of progressive shortness of breath, mild dry cough, wheezing, chest tightness, nausea and vomiting with yellowish secretions. Has chills but no fever. Family unable to speak in full sentences with paroxysms of persistent cough, mild rhinorrhea and states that exposure to cold, only trigger symptoms. He was using her usual bronchodilators at home with no improvement, reason she came to the emergency department. Chest x-ray unremarkable. Symptoms improved but is still with moderate bilateral wheezing, felt safe to admit her for further treatment. Hospital Course Hospital Course: Patient received IV Solu-Medrol, Singulair, Advair, Xopenex inhaled. Receive oxygen as needed. Lisinopril was stopped due to coughing. She did very well and she was doing good without oxygen. She can ambulate without any problems. She is stable for discharge. We would give short course of p.o. prednisone 40 mg for 7 days. We will also start her on Advair and Singulair. Physical Exam Vital Signs: Temp Pulse Resp BP Pulse Ox 98.2 F 92 14 121/78 99 04/26/18 07:50 04/26/18 08:35 04/26/18 08:35 04/26/18 07:50 04/26/18 08:35 Intake & Output 04/25/18 04/26/18 04/27/18 06:59 06:59 06:59 Intake Total 564 Balance 564 Weight 206 lb 12.697 oz General appearance: PRESENT: no acute distress Head exam: PRESENT: atraumatic, normocephalic Eye exam: PRESENT: EOMI. ABSENT: conjunctival injection Mouth exam: PRESENT: moist Throat exam: ABSENT: post pharyngeal erythema Neck exam: ABSENT: lymphadenopathy, meningismus, tenderness Respiratory exam: PRESENT: wheezes - Minimal. ABSENT: accessory muscle use, decreased breath sounds Cardiovascular exam: PRESENT: RRR. ABSENT: diastolic murmur, systolic murmur Pulses: PRESENT: normal radial pulses GI/Abdominal exam: PRESENT: normal bowel sounds, soft. ABSENT: ascites, tenderness Extremities exam: ABSENT: pedal edema Musculoskeletal exam: PRESENT: ambulatory Neurological exam: PRESENT: alert, altered, awake, oriented to person, oriented to place, oriented to time, oriented to situation. ABSENT: motor sensory deficit Psychiatric exam: PRESENT: appropriate affect. ABSENT: agitated, anxious, depressed Skin exam: ABSENT: abrasion, cyanosis, erythema, jaundice Results Laboratory Results: 04/25/18 05:00 04/25/18 05:00 Impressions: Chest X-Ray 04/24/18 21:08 IMPRESSION: NO ACUTE RADIOGRAPHIC FINDING IN THE CHEST. Qualifiers - * PATIENT BEING DISCHARGED WITH ANY OF THE FOLLOWING DIAGNOSIS: No
[2018-04-26] MEDS: FLUTICASONE NASAL SPRAY 50 MCG/SPRY 120 SPRAY/16 GM NASL SCH (11:20)
[2018-04-26] MEDS: FLUTICASONE/SALMETEROL DISKUS 250-50 MCG/DOSE IH SCH (11:21)
[2018-04-26] MEDS: ENOXAPARIN SODIUM INJ 40 MG/0.4 ML DISP.SYRIN SUBCUT SCH (11:24)
[2018-04-26 12:47] VITALS: BP 130/75
[2018-04-26] MEDS ORDERED: MONTELUKAST SODIUM 10 MG TABLET PO SCH (22:00)
== END 2018-04-26 13:00 | disposition home or self-care (01) | DRG 203 ==
LOC: ER 20:45 → OBSVTOIN 23:02 → EH 23:02 → 4N 04-25 13:28
PROVIDERS: ADMIT Internal Medicine; ATTEND Internal Medicine
DX: J45.51 Severe persistent asthma with (acute) exacerbation (principal); I10 Essential (primary) hypertension; F32.9 Major depressive disorder, single episode, unspecified; Z87.891 Personal history of nicotine dependence
CPT/HCPCS: 36415; 71045; 80048; 83735; 84100; 85025; 85027; 93005; 93010; 94640; 96361; 96365; 96375; 99285; J1650; J1885; J2920; J2930; J3475; J3490; J7030; J7620

== ENCOUNTER 2018-06-29 08:32 | Emergency (ER) | payer MEDICAID ==
[2018-06-29] MEDS ORDERED: NORMAL SALINE 1000 ML 1,000 ML IV ONE (09:02)
[2018-06-29] MEDS ORDERED: ACETAMINOPHEN 325 MG TABLET PO ONE (09:14)
[2018-06-29 09:21] LABS: HEMATOCRIT 36.1 % (36.0-47.0); HEMOGLOBIN 11.8 g/dL (12.0-15.5); MEAN CORPUSCULAR HEMOGLOBIN 23.4 pg (27.0-33.4); MEAN CORPUSCULAR HGB CONC 32.6 g/dL (32.0-36.0); MEAN CORPUSCULAR VOLUME 72 fl (80-97); PLATELET COUNT 339 10^3/uL (150-450); RED BLOOD COUNT 5.03 10^6/uL (3.72-5.28); RED CELL DISTRIBUTION WIDTH 18.7 % (11.5-14.0); WHITE BLOOD COUNT 4.9 10^3/uL (4.0-10.5)
[2018-06-29] MEDS ORDERED: MORPHINE SULFATE 10 MG/ML INJ IV ONE ×2 (09:26→15:13)
[2018-06-29] MEDS ORDERED: ONDANSETRON HCL INJ/PF 4 MG/2 ML SDV IV ONE (09:26)
[2018-06-29 09:47] LABS: ALANINE AMINOTRANSFERASE 11 U/L (9-52); ALBUMIN 4.1 g/dL (3.5-5.0); ALKALINE PHOSPHATASE 99 U/L (38-126); ANION GAP 13 (5-19); ASPARTATE AMINO TRANSFERASE 16 U/L (14-36); BILIRUBIN,DIRECT 0.2 mg/dL (0.0-0.4); BILIRUBIN,TOTAL 0.6 mg/dL (0.2-1.3); BLOOD UREA NITROGEN 8 mg/dL (7-20); CALCIUM 9.6 mg/dL (8.4-10.2); CARBON DIOXIDE 20 mmol/L (22-30); CHLORIDE 107 mmol/L (98-107); GLUCOSE 105 mg/dL (75-110); LIPASE 24.8 U/L (23-300); POTASSIUM 4.4 mmol/L (3.6-5.0); SODIUM 140.1 mmol/L (137-145); TOTAL PROTEIN 7.2 g/dL (6.3-8.2)
[2018-06-29 09:50] LABS: APPEARANCE,URINE SLIGHTLY-CLOUDY; BILIRUBIN,URINE NEGATIVE (NEGATIVE); COLOR,URINE YELLOW; GLUCOSE, URINE NEGATIVE (NEGATIVE); KETONES,URINE TRACE mg/dL (NEGATIVE); LEUKOCYTE ESTERASE,URINE TRACE (NEGATIVE); NITRITE,URINE NEGATIVE (NEGATIVE); PROTEIN,URINE 30 mg/dL (NEGATIVE); URINE SPECIFIC GRAVITY 1.028
[2018-06-29 10:08] LABS: ABSOLUTE LYMPHOCYTES# (MANUAL) 0.1 10^3/uL (0.5-4.7); ABSOLUTE MONOCYTES # (MANUAL) 0.4 10^3/uL (0.1-1.4); ABSOLUTE NEUTROPHILS# (MANUAL) 4.2 10^3/uL (1.7-8.2); BASOPHILS % (MANUAL) 0 % (0-2); EOSINOPHILS % (MANUAL) 3 % (0-6); LYMPHOCYTES % (MANUAL) 3 % (13-45); MONOCYTES % (MANUAL) 8 % (3-13); SEGMENTED NEUTROPHILS % (MAN) 86 % (42-78); TOTAL CELLS COUNTED 100
[2018-06-29 10:09] LABS: ANISOCYTOSIS 2+; HYPOCHROMASIA 1+; OVALOCYTES 1+; PLATELET COMMENT ADEQUATE; POIKILOCYTOSIS 1+
[2018-06-29 11:24] LABS: BACTERIA (WET MOUNT) 3+ BACTERIA SEEN; EPITHELIALS (WET MOUNT) 3+ EPITHELIALS SEEN; RBCS (WET MOUNT) NO RBCS SEEN; T.VAGINALIS (WET MOUNT) NO TRICHOMONAS SEEN; WBCS (WET MOUNT) FEW WBCS SEEN; YEAST (WET MOUNT) NO YEAST SEEN
[2018-06-29 12:43] LABS: CHLAM PCR NOT DETECTED (NOT DETECT); GON PCR NOT DETECTED (NOT DETECT)
--- NOTE | 2018-06-29 14:38 | ER Document Report ---
ED GI/ - General Chief Complaint: Abdominal Pain Stated Complaint: STOMACH PAIN, BACK PAIN Time Seen by Provider: 06/29/18 09:01 Mode of Arrival: Ambulatory Information source: Patient Notes: Patient is a 27-year-old female who presents with chief complaint of low abdominal pain that radiates to her back. Patient reports the pain is worse on the left lower side of her back but is present on both sides. She states that she also has a fever, she states the fever was as high as 102 at home. All of her symptoms started last night around 10 PM. On presentation patient is febrile with a temperature of 101.1, heart rate 120. Patient was writhing around on arrival complaining of severe lower abdominal pain. Patient denies any past surgical history other than a x1. Patient reports nausea with vomiting but denies any diarrhea. TRAVEL OUTSIDE OF THE [place] IN LAST 30 DAYS: No - Related Data Allergies/Adverse Reactions: amoxicillin Allergy (Verified 06/29/18 08:32) ibuprofen [From Motrin] Allergy (Verified 06/29/18 08:32) Past Medical History - General Information source: Patient - Social History Smoking Status: Current Every Day Smoker Chew tobacco use (# tins/day): No Frequency of alcohol use: None Drug Abuse: None Family History: Hypertension Patient has suicidal ideation: No Patient has homicidal ideation: No - Past Medical History Cardiac Medical History: Reports: Hx Hypertension Pulmonary Medical History: Reports: Hx Asthma, Hx Pneumonia Neurological Medical History: Reports: Hx Migraine Renal/ Medical History: Denies: Hx Peritoneal Dialysis Psychiatric Medical History: Reports: Hx Depression Past Surgical History: Reports: Hx Section - x4, Hx Tubal Ligation - Immunizations Immunizations up to date: Yes Hx Diphtheria, Pertussis, Tetanus Vaccination: Yes Review of Systems - Review of Systems Constitutional: Fever Gastrointestinal: Abdominal pain, Nausea, Vomiting -: Yes All other systems reviewed and negative Physical Exam - Vital signs Vitals: Temp Pulse Resp BP Pulse Ox 101.1 F H 120 H 18 143/78 H 98 06/29/18 08:35 06/29/18 08:35 06/29/18 08:35 06/29/18 08:35 06/29/18 08:35 - Notes Notes: PHYSICAL EXAMINATION: GENERAL: Well-appearing, well-nourished and in moderate distress. HEAD: Atraumatic, normocephalic. EYES: Pupils equal round and reactive to light, extraocular movements intact, conjunctiva are normal. ENT: Nares patent, oropharynx clear without exudates. Moist mucous membranes. NECK: Normal range of motion, supple without lymphadenopathy LUNGS: Breath sounds clear to auscultation bilaterally and equal. No wheezes rales or rhonchi. HEART: Regular rate and rhythm without murmurs ABDOMEN: Soft,nondistended abdomen. Significant tenderness upon palpation especially to the right lower quadrant. No guarding, no rebound. No masses appreciated. Female : Bilateral CVA tenderness. Speculum exam reveals thin white discharge from the cervical office, no cervical motion tenderness, no adnexal tenderness. Musculoskeletal: Normal range of motion, no pitting or edema. No cyanosis. NEUROLOGICAL: Cranial nerves grossly intact. Normal speech, normal gait. Normal sensory, motor exams PSYCH: Normal mood, normal affect. SKIN: Warm, Dry, normal turgor, no rashes or lesions noted. Course - Re-evaluation Re-evalutation: CBC is unremarkable other than mildly elevated neutrophils. CMP is normal, lipase is normal. Urinalysis with trace leukocyte esterase. 3+ bacteria on wet mount. Speculum exam was relatively unremarkable, no CVA tenderness, no adnexal tenderness. Patient continues to be very persistent about this right lower quadrant pain, she is writhing around in between rounds of pain medication we will send patient for CT of the abdomen and pelvis to evaluate for any acute pathology. CT of the abdomen pelvis was negative for any acute findings. Will place patient on antibiotic for bacterial vaginosis that she did have 3+ bacteria on the wet mount. Patient will be given strict ED return precautions for abdominal pain. Patient verbalizes understanding of plan and is agreeable to same, close follow-up with PCP recommended. - Vital Signs Vital signs: Temp Pulse Resp BP Pulse Ox 98.9 F 120 H 14 134/80 H 100 06/29/18 15:22 06/29/18 08:35 06/29/18 16:01 06/29/18 16:01 06/29/18 16:01 - Laboratory Result Diagrams: 06/29/18 09:07 06/29/18 09:07 Laboratory results interpreted by me: 06/29/18 06/29/18 06/29/18 09:07 09:07 09:07 Hgb 11.8 L MCV 72 L MCH 23.4 L RDW 18.7 H Seg Neuts % (Manual) 86 H Lymphocytes % (Manual) 3 L Abs Lymphs (Manual) 0.1 L Carbon Dioxide 20 L Urine Protein 30 H Urine Ketones TRACE H Urine Urobilinogen 2.0 H Ur Leukocyte Esterase TRACE H Discharge - Discharge Clinical Impression: Abdominal pain Qualifiers: Abdominal location: lower abdomen, unspecified Qualified Code(s): R10.30 - Lower abdominal pain, unspecified Fever Qualifiers: Fever type: unspecified Qualified Code(s): R50.9 - Fever, unspecified Vomiting Qualifiers: Vomiting type: unspecified Vomiting Intractability: unspecified Nausea presence : unspecified Qualified Code(s): R11.10 - Vomiting, unspecified Condition: Stable Disposition: HOME, SELF-CARE Additional Instructions: Abdominal Pain There are many causes of abdominal pain. Pain can mean a serious problem requiring surgery (such as appendicitis). It can also be an innocent problem that goes away on its own (such as a viral infection). Often, time must pass to determine the cause of pain. The physician does not feel that hospitalization is necessary, at present. Things may change within the next 24 hours. Call the doctor or come back for re- examination if any problems occur, such as: (1) Pain that becomes more severe, steady, or becomes concentrated in one specific area. Also, pain that is more severe with movement or coughing. (2) Vomiting that persists or becomes more frequent. (3) Blood in the vomitus, urine, or bowel movements. Blood in the stool may have a tarry or black appearance. (4) Shaking chills or fever greater than 100 degrees F. (5) The abdomen becomes more distended or swollen. (6) Bowel movements cease. (7) Failure to improve as expected. Vaginosis, Bacterial Your exam shows you have bacterial vaginosis. This condition is due to an overgrowth of bacteria in the vagina. Symptoms may include vaginal itching or pain, a smelly discharge, and sometimes burning with urination. Normally this is not transmitted by sexual contact. Vaginosis can be treated with oral or topical antibiotics. Metronidazole ( Flagyl) pills are usually effective. Topical vaginal creams include Cleocin and Metro-Gel. You should avoid sexual contact until your symptoms are all better. Call the doctor if you develop pelvic pain, fever, or problems with urination, or if you don't improve as expected. Antispasmodics You have been given a prescription for an antispasmodic medicine. This type of drug is used to decrease cramping and pain in the intestines. It is also used to decrease secretion of internal fluids (such as stomach acid in ulcer disease or pancreatic juice in pancreas disease). This medicine may cause drowsiness, especially with the first dose. Do not operate machinery or drive until all side effects have resolved. Do not combine with alcohol. Other common side effects include dry mouth and eyes. In older persons, antispasmodics can occasionally cause urinary retention, constipation, or trouble focusing the eyes. Glaucoma may be worsened by this medicine. Antinausea Medication You have been given a medication to suppress nausea and vomiting. This type of medication can be given as a shot, pill, or suppository. It will usually last for many hours. Pills and shots usually last six to eight hours, suppositories last about 12 hours. For the typical illness, only one or two doses of the medication may be necessary. Mild lightheadedness may occur. This type of medicine can cause drowsiness. Do not drive or operate dangerous machinery while under its influence. Do not mix with alcohol. See your doctor at once if you have muscle spasms or tightness, or uncontrollable motions (particularly of the neck, mouth, or jaw). Persistent vomiting or severe lightheadedness should also be evaluated by the physician. Metronidazole Metronidazole (Flagyl) has been prescribed. This medication is used to kill a type of bacteria called anaerobes, and protozoan parasites such as trichomonas and Giardia. Flagyl often causes a metallic taste in the mouth and mild nausea. Do not use alcohol in any form with Flagyl (including alcohol in medication elixirs). Flagyl interacts with alcohol to cause flushing, palpitations, headache, stomach cramps, and vomiting. Do not use Flagyl if you are taking Antabuse (disulfiram). Call the doctor at once if you develop rash, shortness of breath, itching, or lightheadedness. Please take medication as prescribed. Your blood work, urine and CAT scan were normal today. The vaginal swabs did show some overgrowth of bacteria which is called bacterial vaginosis. Please take the medications as prescribed one of them is an antibiotic, complete the entire course even if your symptoms are gone, the other two medications are for pain and nausea. Take these medications as needed. It is important for you to follow-up with a primary care provider, call them in the next couple of days to schedule an appointment.* Prescriptions: Dicyclomine HCl [Bentyl 20 mg Tablet] 20 mg PO QID #40 tablet Metronidazole [Flagyl 500 mg Tablet] 500 mg PO BID #14 tablet Ondansetron [Zofran Odt 4 mg Tablet] 1 - 2 tab PO Q4H PRN #15 tab.rapdis PRN Reason: For Nausea/Vomiting Forms: Return to Work Referrals: EVIE AUGUSTIN MD [Primary Care Provider] - Follow up as needed
--- NOTE | 2018-06-29 15:17 | RADIOLOGY REPORT (SQ) ---
EXAM DESCRIPTION: CT ABD/PELVIS WITH IV ONLY COMPLETED DATE/TIME: 06/29/2018 3:00 pm REASON FOR STUDY: low abd pain, fever COMPARISON: None. TECHNIQUE: CT scan of the abdomen and pelvis performed using helical scanning technique with dynamic intravenous contrast injection. No oral contrast. Images reviewed with lung, soft tissue, and bone windows. Reconstructed coronal and sagittal MPR images reviewed. Delayed images for evaluation of the urinary system also acquired. All images stored on PACS. All CT scanners at this facility use dose modulation, iterative reconstruction, and/or weight based d osing when appropriate to reduce radiation dose to as low as reasonably achievable (ALARA). [facility]: Dose Right [facility]: CareDose [facility]: Dose Right [facility]: Teradose 4D [facility]: [employer] CONTRAST TYPE AND DOSE: contrast/concentration: Isovue 350.00 mg/ml; Total Contrast Delivered: 100.0 ml; Total Saline Delivered: 72.0 ml RENAL FUNCTION: BUN 8 creatinine 0.8 RADIATION DOSE: CT Rad equipment meets quality standard of care and radiation dose reduction techniq ues were employed. CTDIvol: 13.6 - 15.3 mGy. DLP: 1503 mGy-cm.. LIMITATIONS: None. FINDINGS: LOWER CHEST: No significant findings. No nodules or infiltrates. LIVER: Normal size. No masses. No dilated ducts. SPLEEN: Normal size. No focal lesions. PANCREAS: No masses. No significant calcifications. No adjacent inflammation or peripancreatic fluid collections. Pancreatic duct not dilated. GALLBLADDER: No identified stones by CT criteria. No inflammatory changes to suggest cholecystitis. ADRENAL GLANDS: No significant masses or asymmetry. RIGHT KIDNEY AND URETER: No solid masses. No significant calcifications. No hydronephrosis or hyd roureter. LEFT KIDNEY AND URETER: No solid masses. No significant calcifications. No hydronephrosis or hydr oureter. AORTA AND VESSELS: No aneurysm. No dissection. Renal arteries, SMA, celiac without stenosis. RETROPERITONEUM: No retroperitoneal adenopathy, hemorrhage or masses. BOWEL AND PERITONEAL CAVITY: No masses or inflammatory changes. No free fluid or peritoneal masses. APPENDIX: Normal. PELVIS: No mass. No free fluid. Normal bladder. ABDOMINAL WALL: No masses. No hernias. BONES: No significant or acute findings. OTHER: No other significant finding. IMPRESSION: NO SIGNIFICANT OR ACUTE FINDING IN THE ABDOMEN OR PELVIS ON CT SCAN WITH IV CONTRAST. TECHNICAL DOCUMENTATION: JOB ID: [id number] Quality ID # [id number]: Final reports with documentation of one or more dose reduction techniques (e.g., Au tomated exposure control, adjustment of the mA and/or kV according to patient size, use of iterative reconstruction technique) 2010 [employer]- All Rights Reserved Reading location - IP/workstation name: [email or web address]
[2018-06-29] MEDS ORDERED: METRONIDAZOLE 500 MG TABLET PO ONE (16:13)
[2018-06-29] MEDS ORDERED: ONDANSETRON ODT 4 MG TAB (6 TAB/ER DISP) PO PRN (16:13)
[2018-06-29 16:52] VITALS: BP 134/80
== END 2018-06-29 17:00 | disposition home or self-care (01) ==
LOC: ER 08:32
DX: R10.30 Lower abdominal pain, unspecified (principal); R50.9 Fever, unspecified; R11.2 Nausea with vomiting, unspecified; M54.9 Dorsalgia, unspecified; M54.5 Low back pain; F17.200 Nicotine dependence, unspecified, uncomplicated; I10 Essential (primary) hypertension; J45.909 Unspecified asthma, uncomplicated
CPT/HCPCS: 96376; 99284; 96361; 96374; 96375; 36415; 87086; 87210; 83690; 85025; 81025; 80053; 81001; 87491; 87591; 74177; J3490 ×2; J2270; J2405; J7030

== ENCOUNTER 2018-07-03 14:18 | Emergency (ER) | payer MEDICAID ==
[2018-07-03 14:49] LABS: APPEARANCE,URINE SLIGHTLY-CLOUDY; BILIRUBIN,URINE SMALL (NEGATIVE); COLOR,URINE AMBER; GLUCOSE, URINE NEGATIVE (NEGATIVE); KETONES,URINE TRACE mg/dL (NEGATIVE); LEUKOCYTE ESTERASE,URINE TRACE (NEGATIVE); NITRITE,URINE NEGATIVE (NEGATIVE); PROTEIN,URINE 100 mg/dL (NEGATIVE); URINE SPECIFIC GRAVITY 1.033
--- NOTE | 2018-07-03 15:10 | ER Document Report ---
ED Medical Screen (RME) - General Chief Complaint: Back Pain Stated Complaint: BACK PAIN, PAINFUL URINATION Time Seen by Provider: 07/03/18 14:45 Mode of Arrival: Ambulatory Information source: Patient Notes: Patient is a 27-year-old female who presents with chief complaint of left upper back pain, burning with urination and right lower quadrant pain, she also states she has had persistent diarrhea and vomiting x1. Patient reports this is been going on for several days. Patient reports she was seen in the emergency department on 28 June and was discharged home with a diagnosis of bacterial vaginosis. Patient reports taking all of her medications as prescribed. She states her fever has resolved however she states she still having significant pain. Exam: Tenderness to palpation to low abdomen. No tenderness to right upper quadrant. Tenderness to left thoracic area. I have greeted and performed a rapid initial assessment of this patient. A comprehensive ED assessment and evaluation of the patient, analysis of test results and completion of the medical decision making process will be conducted by additional ED providers. Dictation of this chart was performed using voice recognition software; therefore, there may be some unintended grammatical errors. TRAVEL OUTSIDE OF THE [place] IN LAST 30 DAYS: No - Related Data Allergies/Adverse Reactions: amoxicillin Allergy (Verified 06/29/18 08:32) ibuprofen [From Motrin] Allergy (Verified 06/29/18 08:32) Past Medical History - Social History Chew tobacco use (# tins/day): No Frequency of alcohol use: None Drug Abuse: None - Past Medical History Cardiac Medical History: Reports: Hx Hypertension Pulmonary Medical History: Reports: Hx Asthma, Hx Pneumonia Neurological Medical History: Reports: Hx Migraine Renal/ Medical History: Denies: Hx Peritoneal Dialysis Psychiatric Medical History: Reports: Hx Depression Past Surgical History: Reports: Hx Section - x4, Hx Tubal Ligation - Immunizations Immunizations up to date: Yes Hx Diphtheria, Pertussis, Tetanus Vaccination: Yes History of Influenza Vaccine for 05/2017 - 10/2017 Season: Refused Physical Exam - Vital signs Vitals: Temp Pulse Resp BP Pulse Ox 98.7 F 100 20 135/89 H 99 07/03/18 14:22 07/03/18 14:22 07/03/18 14:22 07/03/18 14:22 07/03/18 14:22 Course - Vital Signs Vital signs: Temp Pulse Resp BP Pulse Ox 98.7 F 100 20 135/89 H 99 07/03/18 14:22 07/03/18 14:22 07/03/18 14:22 07/03/18 14:22 07/03/18 14:22 - Laboratory Laboratory results interpreted by me: 07/03/18 14:29 Urine Protein 100 H Urine Ketones TRACE H Urine Blood SMALL H Urine Bilirubin SMALL H Urine Urobilinogen 2.0 H Ur Leukocyte Esterase TRACE H Doctor's Discharge - Discharge Referrals: EVIE AUGUSTIN MD [Primary Care Provider] - Follow up as needed
[2018-07-03 16:06] LABS: URINE AMPHETAMINES SCREEN NEGATIVE; URINE BARBITURATES SCREEN NEGATIVE; URINE BENZODIAZEPINES SCREEN UNCONFIRMED POSITIVE; URINE COCAINE SCREEN NEGATIVE; URINE MARIJUANA (THC) SCREEN UNCONFIRMED POSITIVE; URINE METHADONE SCREEN NEGATIVE; URINE PHENCYCLIDINE SCREEN UNCONFIRMED POSITIVE
[2018-07-03 16:17] LABS: ALANINE AMINOTRANSFERASE 19 U/L (9-52); ALBUMIN 3.6 g/dL (3.5-5.0); ALKALINE PHOSPHATASE 77 U/L (38-126); ANION GAP 8 (5-19); ASPARTATE AMINO TRANSFERASE 19 U/L (14-36); BILIRUBIN,DIRECT 0.2 mg/dL (0.0-0.4); BILIRUBIN,TOTAL 0.2 mg/dL (0.2-1.3); BLOOD UREA NITROGEN 7 mg/dL (7-20); CALCIUM 8.7 mg/dL (8.4-10.2); CARBON DIOXIDE 27 mmol/L (22-30); CHLORIDE 106 mmol/L (98-107); GLUCOSE 92 mg/dL (75-110); LIPASE 37.1 U/L (23-300); POTASSIUM 3.9 mmol/L (3.6-5.0); SODIUM 140.6 mmol/L (137-145); TOTAL PROTEIN 6.4 g/dL (6.3-8.2)
[2018-07-03 16:21] LABS: HEMATOCRIT 34.1 % (36.0-47.0); HEMOGLOBIN 10.9 g/dL (12.0-15.5); MEAN CORPUSCULAR HEMOGLOBIN 23.2 pg (27.0-33.4); MEAN CORPUSCULAR VOLUME 72 fl (80-97); PLATELET COUNT 269 10^3/uL (150-450); RED BLOOD COUNT 4.71 10^6/uL (3.72-5.28); WHITE BLOOD COUNT 2.4 10^3/uL (4.0-10.5)
[2018-07-03] MEDS ORDERED: NORMAL SALINE 1000 ML 1,000 ML IV ONE (16:38)
[2018-07-03] MEDS ORDERED: METOCLOPRAMIDE HCL INJ/PF 10 MG/2 ML SDV IV ONE (16:38)
[2018-07-03] MEDS ORDERED: DIPHENHYDRAMINE HCL 50 MG/ML VIAL IV ONE (16:38)
[2018-07-03] MEDS ORDERED: DICYCLOMINE HCL INJ 20 MG/2 ML AMPULE IM ONE (16:39)
[2018-07-03 16:50] LABS: ABSOLUTE LYMPHOCYTES# (MANUAL) 1.1 10^3/uL (0.5-4.7); ABSOLUTE MONOCYTES # (MANUAL) 0.5 10^3/uL (0.1-1.4); ABSOLUTE NEUTROPHILS# (MANUAL) 0.5 10^3/uL (1.7-8.2); BASOPHILS % (MANUAL) 1 % (0-2); EOSINOPHILS % (MANUAL) 10 % (0-6); LYMPHOCYTES % (MANUAL) 45 % (13-45); MONOCYTES % (MANUAL) 22 % (3-13); SEGMENTED NEUTROPHILS % (MAN) 22 % (42-78); TOTAL CELLS COUNTED 100
[2018-07-03 16:51] LABS: ANISOCYTOSIS 2+; HYPOCHROMASIA 1+; OVALOCYTES 1+; PLATELET COMMENT ADEQUATE; PLATELET LARGE PRESENT; POIKILOCYTOSIS 1+
--- NOTE | 2018-07-03 17:59 | RADIOLOGY REPORT (SQ) ---
EXAM DESCRIPTION: ACUTE ABDOMEN SERIES COMPLETED DATE/TIME: 07/03/2018 5:47 pm REASON FOR STUDY: abd pain COMPARISON: None. NUMBER OF VIEWS: One view. TECHNIQUE: Supine radiographic image of the abdomen acquired. LIMITATIONS: None. FINDINGS: BOWEL GAS PATTERN: Non-obstructive bowel gas pattern. No dilated loops. CALCIFICATIONS: No suspicious calcifications. SOFT TISSUES: No gross mass or suggestion of organomegaly. HARDWARE: None in the abdomen. BONES: No acute fracture. No worrisome bone lesions. OTHER: No other significant finding. IMPRESSION: NO RADIOGRAPHIC EVIDENCE FOR ACUTE ABDOMINAL DISEASE. TECHNICAL DOCUMENTATION: JOB ID: [id number] [place]-72 2010 [employer]- All Rights Reserved Reading location - IP/workstation name: [email or web address]
--- NOTE | 2018-07-03 19:33 | ER Document Report ---
ED General - General Chief Complaint: Back Pain Stated Complaint: BACK PAIN, PAINFUL URINATION Time Seen by Provider: 07/03/18 14:45 Mode of Arrival: Ambulatory TRAVEL OUTSIDE OF THE [place] IN LAST 30 DAYS: No - HPI Patient complains to provider of: Nausea vomiting diarrhea abdominal cramping left-sided flank pain Notes: Patient coming in for the above-stated symptoms. States ongoing since Thursday. Patient was recently here also for abdominal pain and had a significant workup performed only finding bacterial vaginosis. Patient states she has been compliant with the Flagyl that she was prescribed. Patient states fevers on Thursday however no fever since that time. Patient denies travel denies any sexual intercourse since her last visit. Patient denies any trauma otherwise is resting looking comfortable holding her left side. Patient has a history of kidney stones. Denies any recent alcohol abuse. - Related Data Allergies/Adverse Reactions: amoxicillin Allergy (Verified 06/29/18 08:32) ibuprofen [From Motrin] Allergy (Verified 06/29/18 08:32) Past Medical History - General Information source: Patient - Social History Smoking Status: Current Every Day Smoker Chew tobacco use (# tins/day): No Frequency of alcohol use: None Drug Abuse: None Family History: Hypertension Patient has suicidal ideation: No Patient has homicidal ideation: No - Past Medical History Cardiac Medical History: Reports: Hx Hypertension Pulmonary Medical History: Reports: Hx Asthma, Hx Pneumonia Neurological Medical History: Reports: Hx Migraine Renal/ Medical History: Denies: Hx Peritoneal Dialysis Psychiatric Medical History: Reports: Hx Depression Past Surgical History: Reports: Hx Section - x4, Hx Tubal Ligation - Immunizations Immunizations up to date: Yes Hx Diphtheria, Pertussis, Tetanus Vaccination: Yes Review of Systems - Review of Systems Constitutional: No symptoms reported EENT: No symptoms reported Cardiovascular: No symptoms reported Respiratory: No symptoms reported Gastrointestinal: Abdomen distended, Diarrhea, Nausea, Vomiting Genitourinary: No symptoms reported Female Genitourinary: No symptoms reported Musculoskeletal: No symptoms reported Skin: No symptoms reported Hematologic/Lymphatic: No symptoms reported Neurological/Psychological: No symptoms reported -: Yes All other systems reviewed and negative Physical Exam - Vital signs Vitals: Temp Pulse Resp BP Pulse Ox 98.7 F 100 20 135/89 H 99 07/03/18 14:22 07/03/18 14:22 07/03/18 14:22 07/03/18 14:22 07/03/18 14:22 Interpretation: Normal - General General appearance: Appears well, Alert - HEENT Head: Normocephalic, Atraumatic Eyes: Normal Pupils: PERRL - Respiratory Respiratory status: No respiratory distress Chest status: Nontender Breath sounds: Normal Chest palpation: Normal - Cardiovascular Rhythm: Regular Heart sounds: Normal auscultation Murmur: No - Abdominal Inspection: Normal Distension: No distension Bowel sounds: Normal Tenderness: Nontender Organomegaly: No organomegaly - Back Back: Normal, Nontender - Extremities General upper extremity: Normal inspection, Nontender, Normal color, Normal ROM , Normal temperature General lower extremity: Normal inspection, Nontender, Normal color, Normal ROM , Normal temperature, Normal weight bearing. No: Jessica's sign - Neurological Neuro grossly intact: Yes Cognition: Normal Orientation: AAOx4 Caspian Coma Scale Eye Opening: Spontaneous Monty Coma Scale Verbal: Oriented Monty Coma Scale Motor: Obeys Commands Caspian Coma Scale Total: 15 Speech: Normal Motor strength normal: LUE, RUE, LLE, RLE Sensory: Normal - Psychological Associated symptoms: Normal affect, Normal mood - Skin Skin Temperature: Warm Skin Moisture: Dry Skin Color: Normal Course - Re-evaluation Re-evalutation: 07/03/18 19:34 Laboratory studies not show any signs of acute infection and acute abdominal series also did not show any findings. CBC is concerning for leukopenia and neutropenia. 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 Patient urine drug screen did return positive for marijuana as a pins and PCP. Patient states she has been using Benadryl which could explain the PCP is on Valium which would explain the benzodiazepine also states she smoked marijuana 2 days ago. Marijuana issues may explain some abdominal cramping nausea vomiting and diarrhea. Also diarrhea can become from the Flagyl. Otherwise no acute pathology seen patient on reexamination resting comfortably. I did discuss the patient's findings with her bedside also with our special weapons unit officer wind farm operations manager Dr. garcia. Patient was offered admission discharged home because of her neutropenia however patient at this time agrees with discharge home and stay away from any sick contacts. Patient states understanding return to the ER she develops a fever. Patient also states understanding of following up with Dr. Letty batista in the upcoming week. Patient more likely neutropenic possibly because of the Benadryl or illicits drugs. No signs of infectious source seen patient will be discharged home 07/03/18 22:56 Also discussed with the patient possibility of some of her symptoms being caused by underlying alcohol within the elixir of the Benadryl - Vital Signs Vital signs: Temp Pulse Resp BP Pulse Ox 98.1 F 87 20 124/76 100 07/03/18 20:33 07/03/18 20:33 07/03/18 14:22 07/03/18 20:33 07/03/18 20:33 - Laboratory Result Diagrams: 07/03/18 15:46 07/03/18 15:46 Laboratory results interpreted by me: 07/03/18 07/03/18 14:29 15:46 WBC 2.4 L Hgb 10.9 L Hct 34.1 L MCV 72 L MCH 23.2 L RDW 18.0 H Seg Neuts % (Manual) 22 L Monocytes % (Manual) 22 H Eosinophils % (Manual) 10 H Abs Neuts (Manual) 0.5 L Urine Protein 100 H Urine Ketones TRACE H Urine Blood SMALL H Urine Bilirubin SMALL H Urine Urobilinogen 2.0 H Ur Leukocyte Esterase TRACE H Discharge - Discharge Clinical Impression: Nausea vomiting and diarrhea, Left flank pain, Neutropenia leukopenia Disposition: HOME, SELF-CARE Instructions: Abdominal Pain ([facility]), Nausea or Vomiting, Nonspecific ([facility]) Additional Instructions: X-ray urinalysis and laboratory studies not show any specific reason for your nausea vomiting diarrhea or your left flank pain. I do believe some of her symptoms are related to the antibiotics and more likely related to the Benadryl that you are taking please make sure the Benadryl or any fluids that you take did not contain any alcohol as that this will interact with the Flagyl and cause nausea vomiting and diarrhea. Your CBC does show signs of a low white count and low neutrophils at this time not have a specific etiology for this I discussed your case with our special weapons unit officer wind farm operations manager recommends follow-up I would give his office a call on Thursday to schedule a follow-up appointment. Please avoid any body that is sick please make sure you wash your hands please make sure that if you develop a fever temperature greater than 101 that you return to ER immediately for further evaluation. Prescriptions: Metoclopramide HCl [Reglan] 5 mg PO Q6 #30 tablet Ondansetron [Zofran Odt] 4 mg PO Q6 PRN #30 tab.rapdis PRN Reason: For Nausea/Vomiting Tramadol HCl [Ultram 50 mg Tablet] 50 mg PO ASDIR PRN #20 tablet PRN Reason: Referrals: EVIE AUGUSTIN MD [NO LOCAL MD] - Follow up as needed CEDRIC MCLAIN MD [ACTIVE STAFF] - Follow up as needed (Call Thursday for follow-up appointment for low white count.)
[2018-07-03 20:38] VITALS: BP 124/76
== END 2018-07-03 20:41 | disposition home or self-care (01) ==
LOC: ER 14:18
DX: R11.2 Nausea with vomiting, unspecified (principal); R19.7 Diarrhea, unspecified; R10.9 Unspecified abdominal pain; R14.0 Abdominal distension (gaseous); D70.9 Neutropenia, unspecified; I10 Essential (primary) hypertension; J45.909 Unspecified asthma, uncomplicated; F17.200 Nicotine dependence, unspecified, uncomplicated; Z87.442 Personal history of urinary calculi; Z88.0 Allergy status to penicillin; Z88.6 Allergy status to analgesic agent; Z98.51 Tubal ligation status
CPT/HCPCS: 99284; 96372; 96361; 96374; 96375; 36415; 83690; 85025; 81025; 80053; 81001; 80307; 83605; 74022; J0500; J1200; J2765; J7030

== ENCOUNTER 2018-10-15 11:22 | Emergency (ER) | payer MEDICAID ==
[2018-10-15] MEDS ORDERED: ONDANSETRON 4 MG TAB.RAPDIS PO ONE (11:59)
--- NOTE | 2018-10-15 12:23 | ER Document Report ---
ED Medical Screen (RME) - General Chief Complaint: Nausea/Vomiting/Diarrhea Stated Complaint: VOMMITING Time Seen by Provider: 10/15/18 11:49 Primary Care Provider: EVIE AUGUSTIN MD [Primary Care Provider] - Follow up as needed Mode of Arrival: Ambulatory Information source: Patient Notes: 27-year-old female with no significant medical problems who presents to the em ergency room with nausea, vomiting, watery diarrhea and chills. Patient's had symptoms for the past day. Her daughter has been sick for the last couple of days. She does report nonproductive cough. She denies any significant abdominal pain. TRAVEL OUTSIDE OF THE [place] IN LAST 30 DAYS: No - HPI Onset: This morning Onset/Duration: Gradual Quality of pain: Achy Severity: Mild Pain Level: Denies Associated Symptoms: Cough (nonproductive), Diarrhea, Nausea, Vomiting. denies: Chills, Fever Exacerbated by: Denies Relieved by: Denies Similar symptoms previously: No Recently seen / treated by doctor: No - Related Data Smoking: Non-smoker Frequency of alcohol use: None Drug Abuse: None Allergies/Adverse Reactions: amoxicillin Allergy (Verified 06/29/18 08:32) ibuprofen [From Motrin] Allergy (Verified 06/29/18 08:32) Past Medical History - General Information source: Patient - Social History Cigarette use (# per day): No Chew tobacco use (# tins/day): No Frequency of alcohol use: None Drug Abuse: None Lives with: Family Family history: None - Past Medical History Cardiac Medical History: Reports: Hx Hypertension Pulmonary Medical History: Reports: Hx Asthma, Hx Pneumonia Neurological Medical History: Reports: Hx Migraine Renal/ Medical History: Denies: Hx Peritoneal Dialysis Psychiatric Medical History: Reports: Hx Depression Past Surgical History: Reports: Hx Section - x4, Hx Tubal Ligation - Immunizations Immunizations up to date: Yes Hx Diphtheria, Pertussis, Tetanus Vaccination: Yes History of Influenza Vaccine for 05/2017 - 10/2017 Season: Refused Review of Systems - Review of Systems Constitutional: denies: Chills, Fever EENT: Sinus pressure, Sinus discharge. denies: Throat pain Cardiovascular: denies: Chest pain, Palpitations, Heart racing Respiratory: Cough. denies: Short of breath, Wheezing Gastrointestinal: Diarrhea, Nausea, Vomiting. denies: Abdominal pain Genitourinary: No symptoms reported Female Genitourinary: No symptoms reported Musculoskeletal: No symptoms reported Skin: No symptoms reported Hematologic/Lymphatic: No symptoms reported Neurological/Psychological: No symptoms reported Physical Exam - Vital signs Vitals: Temp Pulse Resp BP Pulse Ox 98.1 F 70 18 142/85 H 100 10/15/18 11:38 10/15/18 11:38 10/15/18 11:38 10/15/18 11:38 10/15/18 11:38 Notes: Physical exam: GENERAL: 27-year-old female, alert and oriented x3, no acute distress. She does appear to have nasal and sinus congestion HEAD: Atraumatic, normocephalic. EYES: Pupils equal round and reactive to light, extraocular movements intact, sclera anicteric, conjunctiva are normal. ENT: TMs normal, nares and sinus congestion, oropharynx clear without exudates. Moist mucous membranes. NECK: Normal range of motion, supple without obvious mass or JVD. LUNGS: Breath sounds clear to auscultation bilaterally and equal. No wheezes rales or rhonchi. HEART: Regular rate and rhythm without murmurs, rubs or gallops. ABDOMEN: Soft, normoactive bowel sounds. No tenderness to palpation. No guarding, no rebound. No masses appreciated. EXTREMITIES: Normal range of motion, no pitting or edema. No clubbing or cyanosis. NEUROLOGICAL: Cranial nerves II through XII grossly intact. Normal speech, moving all extremities. PSYCH: Normal mood, normal affect. SKIN: Warm, Dry, normal turgor, no rashes or lesions noted. Course - Re-evaluation Re-evalutation: 10/15/18 14:52 Note: Given that the patient's daughter has the flu and patient is now developing symptoms, I have offered the Tamiflu to her and after discussion of the risks and benefits, she is chosen to go with the Tamiflu. - Vital Signs Vital signs: Temp Pulse Resp BP Pulse Ox 97.8 F 89 16 138/84 H 99 10/15/18 14:04 10/15/18 14:04 10/15/18 14:04 10/15/18 14:04 10/15/18 14:04 Doctor's Discharge - Discharge Clinical Impression: Influenza Condition: Stable Disposition: HOME, SELF-CARE Additional Instructions: As we discussed, the influenza test is often negative early on in the symptoms. Given that Can has tested positive for influenza, we are offering use of Tamiflu treatment. Take the Tamiflu as prescribed. Rest, drink plenty of fluids, take any Advil or ibuprofen or Tylenol as needed for fever or discomfort. Return to the emergency room for any shortness of breath, or if any problems arise. Take Zofran for nausea. Prescriptions: Oseltamivir Phosphate [Tamiflu 75 mg Capsule] 75 mg PO BID #10 capsule Referrals: EVIE AUGUSTIN MD [Primary Care Provider] - Follow up as needed
[2018-10-15 12:45] LABS: A TYPE INFLUENZA AG NEGATIVE (NEGATIVE); B INFLUENZA AG NEGATIVE (NEGATIVE)
[2018-10-15 14:04] VITALS: BP 138/84
[2018-10-15] MEDS ORDERED: ONDANSETRON ODT 4 MG TAB (6 TAB/ER DISP) PO PRN (14:10)
== END 2018-10-15 14:21 | disposition home or self-care (01) ==
LOC: ER 11:22
DX: J11.1 Influenza due to unidentified influenza virus with other respiratory manifestations (principal); R11.2 Nausea with vomiting, unspecified; R19.7 Diarrhea, unspecified; R68.83 Chills (without fever); R05 Cough; J34.89 Other specified disorders of nose and nasal sinuses; I10 Essential (primary) hypertension; J45.909 Unspecified asthma, uncomplicated; Z88.0 Allergy status to penicillin
CPT/HCPCS: 99284; 87070; 87880; 87804; S0119

== ENCOUNTER 2019-03-17 14:15 | Emergency (ER) | payer MEDICAID ==
[2019-03-17 14:22] VITALS: BP 118/72
--- NOTE | 2019-03-17 14:56 | ER Document Report ---
HPI - HPI Time Seen by Provider: 03/17/19 14:52 Pain Level: 5 Notes: \\ Patient is a 28-year-old female presents emergency department chief complaint of vaginal discomfort. Patient reports burning and itching sensation. She also reports complaints of a possible spider bite to her upper abdomen. She states this has been present for 3 days. Denies any other symptoms. Denies any dysuria. Denies any nausea, vomiting, diarrhea or fever. Patient would like to be checked for STDs. - REPRODUCTIVE Reproductive: DENIES: : Past Medical History - General Information source: Patient - Social History Smoking Status: Never Smoker Frequency of alcohol use: None Drug Abuse: None Family History: Hypertension - Past Medical History Cardiac Medical History: Reports: Hx Hypertension Pulmonary Medical History: Reports: Hx Asthma, Hx Pneumonia Neurological Medical History: Reports: Hx Migraine Renal/ Medical History: Denies: Hx Peritoneal Dialysis Psychiatric Medical History: Reports: Hx Depression Past Surgical History: Reports: Hx Section - x4, Hx Tubal Ligation - Immunizations Immunizations up to date: Yes Hx Diphtheria, Pertussis, Tetanus Vaccination: Yes Vertical Provider Document - CONSTITUTIONAL Notes: PHYSICAL EXAMINATION: GENERAL: Well-appearing, well-nourished and in no acute distress. HEAD: Atraumatic, normocephalic. EYES: Pupils equal round extraocular movements intact, conjunctiva are normal. ENT: Nares patent NECK: Normal range of motion LUNGS: No respiratory distress Gastrointestinal: Abdomen soft, nontender, no guarding no rebound, no CVA tenderness. Musculoskeletal: Normal range of motion NEUROLOGICAL: Normal speech, normal gait. PSYCH: Normal mood, normal affect. SKIN: Warm, Dry, normal turgor, no rashes or lesions noted. - INFECTION CONTROL TRAVEL OUTSIDE OF THE [place] IN LAST 30 DAYS: No Course - Re-evaluation Re-evalutation: Laboratory 03/17/19 03/17/19 03/17/19 15:12 15:12 15:12 Urine Color YELLOW Urine Appearance SLIGHTLY-CLOUDY Urine pH 5.0 Ur Specific Owen 1.039 Urine Protein 100 H Urine Glucose (UA) NEGATIVE Urine Ketones TRACE H Urine Blood NEGATIVE Urine Nitrite NEGATIVE Urine Bilirubin NEGATIVE Urine Urobilinogen 2.0 H Ur Leukocyte Esterase SMALL H Urine WBC (Auto) 6 Urine RBC (Auto) 1 Urine Bacteria (Auto) TRACE Squamous Epi Cells Auto 11 Urine Mucus (Auto) MANY Urine Ascorbic Acid NEGATIVE Epi Cells (Wet Prep) 3+ EPITHELIALS SEEN Bacteria (Wet Prep) 3+ BACTERIA SEEN Trichomonas (Wet Prep) TRICHOMONAS SEEN Vaginal WBC 1+ WBCS SEEN Vaginal RBC RARE RBCS SEEN Vaginal Yeast NO YEAST SEEN Chlamydia DNA (PCR) NOT DETECTED N.gonorrhoeae DNA (PCR) NOT DETECTED Pt treated for BV and trich. Prophylaxis given for GC/chlamydia. - Vital Signs Vital signs: Temp Pulse Resp BP Pulse Ox 98.4 F 79 20 118/72 98 03/17/19 14:21 03/17/19 14:21 03/17/19 14:21 03/17/19 14:21 03/17/19 14:21 Discharge - Discharge Clinical Impression: Bacterial vaginosis, Trichomonas infection Condition: Stable Disposition: HOME, SELF-CARE Additional Instructions: You are being treated for bacterial vaginosis, an overgrowth of normal bacteria in the vagina. You also tested positive for trichomonas. You are being sent home on an antibiotic called metronidazole. Take exactly as directed. Never drink alcohol while taking this antibiotic. Please return if you develop abdominal pain, fever greater than 101F, some vomiting, or any other symptoms that are concerning to you. Prescriptions: Metronidazole [Flagyl 500 mg Tablet] 500 mg PO BID #14 tablet Mupirocin [Bactroban 2% Ointment 22 gm] 1 applic TP BID #1 tube Referrals: EVIE AUGUSTIN MD [Primary Care Provider] - Follow up as needed
[2019-03-17 15:29] LABS: BACTERIA (WET MOUNT) 3+ BACTERIA SEEN; EPITHELIALS (WET MOUNT) 3+ EPITHELIALS SEEN; RBCS (WET MOUNT) RARE RBCS SEEN; T.VAGINALIS (WET MOUNT) TRICHOMONAS SEEN; WBCS (WET MOUNT) 1+ WBCS SEEN; YEAST (WET MOUNT) NO YEAST SEEN
[2019-03-17 15:35] LABS: APPEARANCE,URINE SLIGHTLY-CLOUDY; BILIRUBIN,URINE NEGATIVE (NEGATIVE); GLUCOSE, URINE NEGATIVE (NEGATIVE); KETONES,URINE TRACE mg/dL (NEGATIVE); LEUKOCYTE ESTERASE,URINE SMALL (NEGATIVE); NITRITE,URINE NEGATIVE (NEGATIVE); PROTEIN,URINE 100 mg/dL (NEGATIVE); URINE SPECIFIC GRAVITY 1.039
[2019-03-17 15:38] LABS: COLOR,URINE YELLOW
[2019-03-17] MEDS ORDERED: CEFTRIAXONE INJ 250 MG VIAL IM ONE (15:41)
[2019-03-17] MEDS ORDERED: LIDOCAINE 1% INJ-PF (10 MG/ML) 30 ML SDV IM ONE (15:41)
[2019-03-17] MEDS ORDERED: AZITHROMYCIN 250 MG TABLET PO ONE (15:41)
[2019-03-17] MEDS ORDERED: METRONIDAZOLE 500 MG TABLET PO ONE (15:57)
[2019-03-17] MEDS ORDERED: HYDROCODONE/ACETAMINOPHEN 5-325 MG TABLET PO ONE (16:20)
[2019-03-17 16:57] LABS: CHLAM PCR NOT DETECTED (NOT DETECT)
== END 2019-03-17 16:28 | disposition home or self-care (01) ==
LOC: ER 14:15
DX: N76.0 Acute vaginitis (principal); B96.89 Other specified bacterial agents as the cause of diseases classified elsewhere; A59.9 Trichomoniasis, unspecified; R10.2 Pelvic and perineal pain; I10 Essential (primary) hypertension; J45.909 Unspecified asthma, uncomplicated
CPT/HCPCS: 99283; 96372; 87210; 81001; 87491; 87591; Q0144; J3490 ×2; J0696

== ENCOUNTER 2019-08-24 07:12 | Emergency (ER) | payer MEDICAID ==
[2019-08-24] MEDS ORDERED: PSEUDOEPHEDRINE HCL 30 MG TABLET PO ONE (10:31)
[2019-08-24] MEDS ORDERED: FAMOTIDINE 20 MG TABLET PO ONE (10:31)
[2019-08-24] MEDS ORDERED: PREDNISONE 20 MG TABLET PO ONE (10:31)
--- NOTE | 2019-08-24 10:36 | ER Document Report ---
HPI - HPI Patient complains to provider of: Congestion, skin rash Time Seen by Provider: 08/24/19 09:46 Onset/Duration: Better Quality of pain: Achy Pain Level: 3 Context: Patient presents complaining of sinus congestion right ear pain and voice hoarseness for the past few days. 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 Patient also noted a rash to the buttocks area that looked like hives. Patient denies any fever or difficulty breathing. Patient does states she has a recent change in her detergents. Associated Symptoms: Earache, Rhinnorhea. denies: Nonproductive cough, Fever Exacerbated by: Denies Relieved by: Denies Similar symptoms previously: No Recently seen / treated by doctor: No - ROS ROS below otherwise negative: Yes Systems Reviewed and Negative: Yes All other systems reviewed and negative - CONSTITUTIONAL Constitutional: DENIES: Fever, Chills - EENT EENT: REPORTS: Ear Pain, Nasal Drainage-Clear, Congestion. DENIES: Sore Throat - RESPIRATORY Respiratory: DENIES: Coughing - GASTROINTESTINAL Gastrointestinal: DENIES: Nausea, Patient vomiting - REPRODUCTIVE Reproductive: DENIES: : - DERM Skin Color: Normal Skin Problems: Rash Past Medical History - General Information source: Patient - Social History Smoking Status: Current Every Day Smoker Frequency of alcohol use: None Drug Abuse: Marijuana Occupation: None Family History: Hypertension Patient has suicidal ideation: No Patient has homicidal ideation: No - Past Medical History Cardiac Medical History: Reports: Hx Hypertension Pulmonary Medical History: Reports: Hx Asthma, Hx Pneumonia Neurological Medical History: Reports: Hx Migraine Renal/ Medical History: Denies: Hx Peritoneal Dialysis Psychiatric Medical History: Reports: Hx Depression Past Surgical History: Reports: Hx Section - x4, Hx Tubal Ligation - Immunizations Immunizations up to date: Yes Hx Diphtheria, Pertussis, Tetanus Vaccination: Yes Vertical Provider Document - CONSTITUTIONAL Agree With Documented VS: Yes Exam Limitations: No Limitations General Appearance: WD/WN, No Apparent Distress - INFECTION CONTROL TRAVEL OUTSIDE OF THE [place] IN LAST 30 DAYS: No - HEENT HEENT: Atraumatic, Normocephalic. negative: Pharyngeal Exudate, Pharyngeal Tenderness, Pharyngeal Erythema, Tympanic Membrane Red, Tympanic Membrane Bulging Notes: Clear rhinorrhea - NECK Neck: negative: Thyroid Normal - Palpable nodule to right side of thyroid gland, Lymphadenopathy-Left, Lymphadenopathy-Right - RESPIRATORY Respiratory: Breath Sounds Normal, No Respiratory Distress, Chest Non-Tender - CARDIOVASCULAR Cardiovascular: Regular Rate, Regular Rhythm, No Murmur - BACK Back: Normal Inspection - MUSCULOSKELETAL/EXTREMETIES Musculoskeletal/Extremeties: MAEW, FROM - NEURO Level of Consciousness: Awake, Alert, Appropriate Motor/Sensory: No Motor Deficit - DERM Integumentary: Warm, Dry, Rash - Faint erythematous rash to buttocks Course - Re-evaluation Re-evalutation: 08/24/19 12:08 Patient presents a picture of what the skin rash looked like initially. Patient with picture of what appears to be urticarial lesions. Lesions now just flat erythematous patches pt with stable thyroid nodule. No potential airway compromise. Patient with URI symptoms and episode of urticarial lesions to the buttocks. Will give patient prescription for steroids for the urticaria no concern about anaphylaxis or angioedema at this time. 08/24/19 20:19 - Vital Signs Vital signs: Temp Pulse Resp BP Pulse Ox 98.0 F 78 20 143/78 H 99 08/24/19 07:34 08/24/19 07:34 08/24/19 07:34 08/24/19 07:34 08/24/19 07:34 - Laboratory Result Diagrams: 08/24/19 10:10 08/24/19 10:10 Laboratory results interpreted by me: 08/24/19 12:08 Labs- Entire Visit 08/24/19 08/24/19 08/24/19 10:10 10:10 10:10 WBC 6.2 RBC 4.60 Hgb 10.2 L Hct 31.5 L MCV 69 L MCH 22.2 L MCHC 32.4 RDW 20.1 H Plt Count 333 Lymph % (Auto) 32.9 [place] % (Auto) 8.1 Eos % (Auto) 19.1 H Baso % (Auto) 0.8 Absolute Neuts (auto) 2.4 Absolute Lymphs (auto) 2.0 Absolute Monos (auto) 0.5 Absolute Eos (auto) 1.2 H Absolute Basos (auto) 0.1 Seg Neutrophils % 39.1 L Sodium 140.4 Potassium 3.9 Chloride 108 H Carbon Dioxide 26 Anion Gap 6 BUN 7 Creatinine 0.86 Est GFR ( Amer) > 60 Est GFR (MDRD) Non-Af > 60 Glucose 93 Calcium 8.9 Total Bilirubin 0.4 Direct Bilirubin 0.0 Neonat Total Bilirubin Not Reportable Neonat Direct Bilirubin Not Reportable Neonat Indirect Bili Not Reportable AST 16 ALT 10 Alkaline Phosphatase 67 Total Protein 6.4 Albumin 3.7 TSH 1.67 Free T4 1.50 Free T3 pg/mL 4.05 - Diagnostic Test Radiology reviewed: Reports reviewed Discharge - Discharge Clinical Impression: Urticaria, Thyroid nodule Upper respiratory infection Qualifiers: URI type: unspecified URI Qualified Code(s): J06.9 - Acute upper respiratory infection, unspecified Condition: Stable Disposition: HOME, SELF-CARE Instructions: Acute Urticaria ([facility]), Use of Diphenhydramine, Growth or Mass, Pending Workup ([facility]), Steroid Medication, Upper Respiratory Illness ([facility]) Additional Instructions: Return immediately for any new or worsening symptoms Followup with your primary care provider, call tomorrow to make a followup appointment May use Sudafed [id number] to help with congestion symptoms Follow-up with an historian research assistant for further evaluation of your thyroid nodule Prescriptions: Prednisone [Deltasone 10 mg Tablet] 10 mg PO ASDIR PRN #21 tablet PRN Reason: Famotidine [Pepcid 20 mg Tablet] 20 mg PO BID #12 tablet Ondansetron HCl [Zofran 4 mg Tablet] 1 - 2 tab PO Q6 PRN #12 tablet PRN Reason: Referrals: [facility] [Provider Group] - Follow up as needed
[2019-08-24 10:55] LABS: ABSOLUTE BASOPHILS # (AUTO) 0.1 10^3/uL (0.0-0.2); ABSOLUTE EOSINOPHILS # (AUTO) 1.2 10^3/uL (0.0-0.6); ABSOLUTE MONOCYTES (AUTO) 0.5 10^3/uL (0.1-1.4); ABSOLUTE NEUT (AUTO) 2.4 10^3/uL (1.7-8.2); BASOPHILS % (AUTO) 0.8 % (0-2); EOSINOPHILS % (AUTO) 19.1 % (0-6); HEMATOCRIT 31.5 % (36.0-47.0); HEMOGLOBIN 10.2 g/dL (12.0-15.5); LYMPHOCYTES % (AUTO) 32.9 % (13-45); MEAN CORPUSCULAR HEMOGLOBIN 22.2 pg (27.0-33.4); MEAN CORPUSCULAR HGB CONC 32.4 g/dL (32.0-36.0); MEAN CORPUSCULAR VOLUME 69 fl (80-97); MONOCYTES % (AUTO) 8.1 % (3-13); PLATELET COUNT 333 10^3/uL (150-450); RED CELL DISTRIBUTION WIDTH 20.1 % (11.5-14.0); SEGMENTED NEUTROPHILS % (AUTO) 39.1 % (42-78); TOTAL CELLS COUNTED % (AUTO) 100 %; WHITE BLOOD COUNT 6.2 10^3/uL (4.0-10.5)
[2019-08-24 11:12] LABS: ALBUMIN 3.7 g/dL (3.5-5.0); ALKALINE PHOSPHATASE 67 U/L (38-126); ANION GAP 6 (5-19); ASPARTATE AMINO TRANSFERASE 16 U/L (14-36); BILIRUBIN,TOTAL 0.4 mg/dL (0.2-1.3); BLOOD UREA NITROGEN 7 mg/dL (7-20); CALCIUM 8.9 mg/dL (8.4-10.2); CARBON DIOXIDE 26 mmol/L (22-30); CHLORIDE 108 mmol/L (98-107); GLUCOSE 93 mg/dL (75-110); POTASSIUM 3.9 mmol/L (3.6-5.0); TOTAL PROTEIN 6.4 g/dL (6.3-8.2)
--- NOTE | 2019-08-24 11:28 | RADIOLOGY REPORT (SQ) ---
EXAM DESCRIPTION: U/S THYROID/SFT TISS HD NECK COMPLETED DATE/TIME: 08/24/2019 11:00 am REASON FOR STUDY: swelling to thyroid COMPARISON: 04/04/2018 TECHNIQUE: Dynamic and static headley-scale images acquired of the thyroid gland. Selected additional c olor/power Doppler images recorded. All images stored to PACS. LIMITATIONS: None. FINDINGS: RIGHT LOBE: Enlarged. Heterogeneous echotexture. Heterogeneous isoechoic solid nodule me asuring approximately 5.0 x 2.9 x 3.2 cm. LEFT LOBE: Enlarged. Homogeneous echotexture. No cystic or solid masses. ISTHMUS: Enlarged. Homogeneous echotexture. No cystic or solid masses. OTHER: No other significant finding. IMPRESSION: Thyromegaly. Stable solid nodule right lobe. TECHNICAL DOCUMENTATION: JOB ID: [id number] [employer]- All Rights Reserved Reading location - IP/workstation name: [email or web address]
[2019-08-24 11:29] LABS: FREE T3 4.05 pg/mL (2.77-5.27); FREE T4 (FREE THYROXINE) 1.5 ng/dL (0.78-2.19)
[2019-08-24 11:42] LABS: THYROID STIMULATING HORMONE 1.67 uIU/mL (0.47-4.68)
[2019-08-24] MEDS ORDERED: ONDANSETRON 4 MG TAB.RAPDIS PO ONE (11:54)
[2019-08-24 12:23] VITALS: BP 131/84
== END 2019-08-24 12:24 | disposition home or self-care (01) ==
LOC: ER 07:12
DX: L50.9 Urticaria, unspecified (principal); E04.1 Nontoxic single thyroid nodule; J06.9 Acute upper respiratory infection, unspecified; H92.01 Otalgia, right ear; R59.0 Localized enlarged lymph nodes; R09.81 Nasal congestion; R49.0 Dysphonia; J34.89 Other specified disorders of nose and nasal sinuses; F17.200 Nicotine dependence, unspecified, uncomplicated; F12.10 Cannabis abuse, uncomplicated; I10 Essential (primary) hypertension; J45.909 Unspecified asthma, uncomplicated
CPT/HCPCS: 99283; 36415; 84439; 84443; 85025; 80053; 84481; 76536; J3490; S0119; J7512

== ENCOUNTER 2019-10-04 10:59 | Emergency (ER) | payer MEDICAID ==
--- NOTE | 2019-10-04 11:38 | ER Document Report ---
ED Medical Screen (RME) - General Chief Complaint: STD Exposure Stated Complaint: POSSIBLE STD Time Seen by Provider: 10/04/19 11:36 Notes: HPI: 28-year-old female presenting for vaginal discharge, vaginal itching and burning sensation over the last 2 weeks accompanied by pelvic pain. Has had nausea no fever. Concerned about STD I have greeted and performed a rapid initial assessment of this patient. A comprehensive ED assessment and evaluation of the patient, analysis of test results and completion of the medical decision making process will be conducted by additional ED providers PHYSICAL EXAMINATION: GENERAL: Well-appearing, well-nourished and in no acute distress. HEAD: Atraumatic, normocephalic. EYES: sclera anicteric, conjunctiva are normal. ENT: Moist mucous membranes. NECK: Normal range of motion LUNGS: Normal work of breathing HEART: 2+ radial pulses bilaterally ABD: limited by positioning for exam in triage. 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 No cyanosis. NEUROLOGICAL: No focal neurological deficits. Moves all extremities spontaneously and on command. PSYCH: Normal mood, normal affect. SKIN: Warm, Dry, normal turgor, no rashes or lesions noted. TRAVEL OUTSIDE OF THE [place] IN LAST 30 DAYS: No - Related Data Allergies/Adverse Reactions: amoxicillin Allergy (Verified 03/17/19 14:33) ibuprofen [From Motrin] Allergy (Verified 03/17/19 14:33) Past Medical History - Social History Frequency of alcohol use: None Drug Abuse: Marijuana Family history: None - Past Medical History Cardiac Medical History: Reports: Hx Hypertension Pulmonary Medical History: Reports: Hx Asthma, Hx Pneumonia Neurological Medical History: Reports: Hx Migraine Renal/ Medical History: Denies: Hx Peritoneal Dialysis Psychiatric Medical History: Reports: Hx Depression Past Surgical History: Reports: Hx Section - x4, Hx Tubal Ligation - Immunizations Immunizations up to date: Yes Hx Diphtheria, Pertussis, Tetanus Vaccination: Yes Physical Exam - Vital signs Vitals: Temp Pulse Resp BP Pulse Ox 98.2 F 68 16 128/79 H 98 10/04/19 11:26 10/04/19 11:26 10/04/19 11:26 10/04/19 11:26 10/04/19 11:26 Course - Vital Signs Vital signs: Temp Pulse Resp BP Pulse Ox 98.2 F 68 16 128/79 H 98 10/04/19 11:26 10/04/19 11:26 10/04/19 11:26 10/04/19 11:26 10/04/19 11:26
[2019-10-04 12:26] LABS: APPEARANCE,URINE SLIGHTLY-CLOUDY; BILIRUBIN,URINE NEGATIVE (NEGATIVE); COLOR,URINE YELLOW; GLUCOSE, URINE NEGATIVE (NEGATIVE); KETONES,URINE NEGATIVE (NEGATIVE); LEUKOCYTE ESTERASE,URINE TRACE (NEGATIVE); NITRITE,URINE NEGATIVE (NEGATIVE); PROTEIN,URINE 30 mg/dL (NEGATIVE); URINE SPECIFIC GRAVITY 1.024
[2019-10-04] MEDS ORDERED: CEFTRIAXONE INJ 250 MG VIAL IM ONE (13:21)
[2019-10-04] MEDS ORDERED: AZITHROMYCIN 250 MG TABLET PO ONE (13:22)
[2019-10-04] MEDS ORDERED: LIDOCAINE 1% INJ (10 MG/ML) 10 ML MDV INJ ONE (13:22)
[2019-10-04] MEDS ORDERED: ACETAMINOPHEN 325 MG TABLET PO ONE (13:22)
--- NOTE | 2019-10-04 13:25 | ER Document Report ---
ED GI/ - General Chief Complaint: STD Exposure Stated Complaint: POSSIBLE STD Time Seen by Provider: 10/04/19 13:16 Primary Care Provider: [facility] [[facility]] - Follow up as needed Mode of Arrival: Ambulatory Information source: Patient Notes: Patient presents complaining of vaginal discharge for the past 2 weeks with nausea. Patient reports an odor to the discharge. Patient also reports pain with intercourse. Patient denies any fever or urinary symptoms. Patient is concerned about possible STD. TRAVEL OUTSIDE OF THE [place] IN LAST 30 DAYS: No - HPI Patient complains to provider of: Abdominal pain, Vaginal discharge Onset: Other - 2 wks Timing/Duration: Persistent Quality of pain: Achy Pain Level: 3 Location: Pelvis Vaginal bleeding (Compared to normal period): None Sexual history: Active, Unprotected intercourse Associated symptoms: Vaginal discharge. denies: Urinary hesitancy, Urinary frequency, Urinary retention, Urinary urgency Exacerbated by: Denies Relieved by: Denies Similar symptoms previously: No Recently seen / treated by doctor: No - Related Data Allergies/Adverse Reactions: amoxicillin Allergy (Verified 10/04/19 12:49) ibuprofen [From Motrin] Allergy (Verified 10/04/19 12:49) Past Medical History - General Information source: Patient - Social History Smoking Status: Never Smoker Frequency of alcohol use: None Drug Abuse: Marijuana Occupation: none Family History: Hypertension Patient has suicidal ideation: No Patient has homicidal ideation: No - Past Medical History Cardiac Medical History: Reports: Hx Hypertension Pulmonary Medical History: Reports: Hx Asthma, Hx Pneumonia Neurological Medical History: Reports: Hx Migraine Renal/ Medical History: Denies: Hx Peritoneal Dialysis Psychiatric Medical History: Reports: Hx Depression Past Surgical History: Reports: Hx Section - x4, Hx Tubal Ligation - Immunizations Immunizations up to date: Yes Hx Diphtheria, Pertussis, Tetanus Vaccination: Yes Review of Systems - Review of Systems Constitutional: No symptoms reported. denies: Fever, Recent illness EENT: No symptoms reported Cardiovascular: No symptoms reported Respiratory: No symptoms reported. denies: Cough Gastrointestinal: Abdominal pain, Nausea. denies: Vomiting Genitourinary: No symptoms reported. denies: Dysuria Female Genitourinary: Vaginal discharge. denies: Vaginal bleeding Musculoskeletal: No symptoms reported. denies: Back pain Skin: No symptoms reported Hematologic/Lymphatic: No symptoms reported Neurological/Psychological: No symptoms reported Physical Exam - Vital signs Vitals: Temp Pulse Resp BP Pulse Ox 98.2 F 68 16 128/79 H 98 10/04/19 11:26 10/04/19 11:26 10/04/19 11:26 10/04/19 11:26 10/04/19 11:26 - General General appearance: Appears well, Alert In distress: None - HEENT Head: Normocephalic Eyes: Normal Conjunctiva: Normal Nasal: Normal Mouth/Lips: Normal Mucous membranes: Normal Neck: Normal, Supple - Respiratory Respiratory status: No respiratory distress Chest status: Nontender Breath sounds: Normal. No: Rales, Rhonchi, Stridor, Wheezing Chest palpation: Normal - Cardiovascular Rhythm: Regular Heart sounds: S1 appreciated, S2 appreciated - Abdominal Inspection: Normal Distension: No distension Bowel sounds: Normal Tenderness: Tender - Lower pelvic Organomegaly: No organomegaly - Genitourinary External exam: Normal Speculum exam: Cervix closed, Vaginal discharge Vaginal bleeding: None Bimanuel exam: Cervical motion tender, Adnexal tenderness - Left Notes: RN Soledad as standby - Back Back: Normal, Nontender. No: CVA tenderness, Vertebra tenderness - Extremities General upper extremity: Normal inspection, Normal strength General lower extremity: Normal inspection, Normal strength - Neurological Neuro grossly intact: Yes Cognition: Normal Orientation: AAOx4 Wilbur Coma Scale Eye Opening: Spontaneous Wilbur Coma Scale Verbal: Oriented Monty Coma Scale Motor: Obeys Commands Monty Coma Scale Total: 15 - Psychological Associated symptoms: Normal affect, Normal mood - Skin Skin Temperature: Warm Skin Moisture: Dry Skin Color: Normal Course - Vital Signs Vital signs: Temp Pulse Resp BP Pulse Ox 98.3 F 76 18 133/80 H 100 10/04/19 16:15 10/04/19 16:15 10/04/19 16:15 10/04/19 16:15 10/04/19 16:15 - Laboratory Laboratory results interpreted by me: 10/04/19 11:55 Urine Protein 30 H Urine Urobilinogen 2.0 H Ur Leukocyte Esterase TRACE H Discharge - Discharge Clinical Impression: PID (acute pelvic inflammatory disease), Trichomoniasis Condition: Stable Disposition: HOME, SELF-CARE Instructions: Doxycycline ([facility]), Metronidazole ([facility]), Pelvic Inflammatory Disease ([facility]), Trichomonas Infection ([facility]) Additional Instructions: Return immediately for any new or worsening symptoms Followup with your primary care provider, call tomorrow to make a followup appointment Your partner will need to be treated for trichomonas Prescriptions: Doxycycline Hyclate 100 mg PO BID #28 tablet. Metronidazole [Flagyl 500 mg Tablet] 500 mg PO BID #28 tablet Referrals: [facility] [[facility]] - Follow up as needed
[2019-10-04 13:37] LABS: BACTERIA (WET MOUNT) 4+ BACTERIA SEEN; EPITHELIALS (WET MOUNT) 4+ EPITHELIALS SEEN; T.VAGINALIS (WET MOUNT) TRICHOMONAS SEEN; WBCS (WET MOUNT) 4+ WBCS SEEN; YEAST (WET MOUNT) NO YEAST SEEN
[2019-10-04 15:01] LABS: CHLAM PCR NOT DETECTED (NOT DETECT)
[2019-10-04 16:20] VITALS: BP 133/80
--- NOTE | 2019-10-04 16:22 | RADIOLOGY REPORT (SQ) ---
EXAM DESCRIPTION: U/S NON-OB PELVIS TV W/O DOP COMPLETED DATE/TIME: 10/04/2019 4:09 pm REASON FOR STUDY: pelvic pain COMPARISON: None. TECHNIQUE: Dynamic and static grayscale images acquired of the pelvis via transvaginal approach and recorded on PACS. Additional selected color Doppler and spectral images recorded. LIMITATIONS: Overlying bowel gas. FINDINGS: UTERUS: Contour normal. No mass. ENDOMETRIAL STRIPE: No focal or generalized thickening. No masses. CERVIX: No nabothian cysts. RIGHT OVARY AND DOPPLER: Ovary not visualized. LEFT OVARY AND DOPPLER: Ovary not visualized. FREE FLUID: None noted. OTHER: No other significant finding. IMPRESSION: Normal uterus. Ovaries not visualized. TECHNICAL DOCUMENTATION: JOB ID: [id number] [employer]- All Rights Reserved Reading location - IP/workstation name: [email or web address]
[2019-10-04] MEDS ORDERED: DOXYCYCLINE HYCLATE 100 MG TABLET PO ONE (16:28)
[2019-10-04] MEDS ORDERED: METRONIDAZOLE 500 MG TABLET PO ONE (16:28)
== END 2019-10-04 16:40 | disposition home or self-care (01) ==
LOC: ER 10:59
DX: N73.9 Female pelvic inflammatory disease, unspecified (principal); A59.9 Trichomoniasis, unspecified; R11.0 Nausea; N94.10 Unspecified dyspareunia; I10 Essential (primary) hypertension; J45.909 Unspecified asthma, uncomplicated; Z20.2 Contact with and (suspected) exposure to infections with a predominantly sexual mode of transmission; Z88.0 Allergy status to penicillin; Z88.8 Allergy status to other drugs, medicaments and biological substances
CPT/HCPCS: 99284; 96372; 87210; 81025; 81001; 87491; 87591; 76830; J3490 ×4; Q0144; J0696

== ENCOUNTER 2019-11-07 22:50 | Emergency (ER) | payer MEDICAID ==
[2019-11-07 22:55] VITALS: BP 148/95
== END 2019-11-07 23:50 | disposition left against medical advice (07) ==
LOC: ER 22:50
DX: Z53.21 Procedure and treatment not carried out due to patient leaving prior to being seen by health care provider (principal)

== ENCOUNTER 2019-11-08 08:48 | Emergency (ER) | payer MEDICAID ==
[2019-11-08 08:56] VITALS: BP 144/84
[2019-11-08] MEDS ORDERED: IBUPROFEN 800 MG TABLET PO ONE (09:03)
--- NOTE | 2019-11-08 09:10 | ER Document Report ---
HPI - HPI Patient complains to provider of: Body aches headache sweating Time Seen by Provider: 11/08/19 08:59 Onset: This morning - 3:00 this morning Onset/Duration: Sudden Quality of pain: Achy Pain Level: 1 Context: This 28-year-old female presents emergency department with reports that her whole body hurts she has a headache and she has been sweating since 3:00 this morning. Denies fever vomiting diarrhea. Has not had her flu vaccine this year. She reports she has 6 kids at home but none of them are ill. Denies pain with void. Denies abdominal pain. Has not taken anything for pain. 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 Lives with: Family Family History: Hypertension Patient has suicidal ideation: No Patient has homicidal ideation: No - Past Medical History Cardiac Medical History: Reports: Hx Hypertension Pulmonary Medical History: Reports: Hx Asthma, Hx Pneumonia Neurological Medical History: Reports: Hx Migraine Renal/ Medical History: Denies: Hx Peritoneal Dialysis Psychiatric Medical History: Reports: Hx Depression Past Surgical History: Reports: Hx Section - x4, Hx Tubal Ligation - Immunizations Immunizations up to date: Yes Hx Diphtheria, Pertussis, Tetanus Vaccination: Yes Vertical Provider Document - CONSTITUTIONAL Agree With Documented VS: Yes Exam Limitations: No Limitations General Appearance: WD/WN, No Apparent Distress - nontoxic looking - INFECTION CONTROL TRAVEL OUTSIDE OF THE [place] IN LAST 30 DAYS: No - HEENT HEENT: Atraumatic, Normal ENT Exam, Normocephalic. negative: Conjuctival Injection, Pharyngeal Erythema, Tympanic Membrane Red, Tympanic Membrane Bulging - NECK Neck: Normal Inspection, Supple. negative: Lymphadenopathy-Left, Lymphadenopathy-Right - RESPIRATORY Respiratory: Breath Sounds Normal, No Respiratory Distress - CARDIOVASCULAR Cardiovascular: Regular Rate, Regular Rhythm - GI/ABDOMEN Gastrointestinal: Abdomen Soft, Abdomen Non-Tender - BACK Back: Normal Inspection - MUSCULOSKELETAL/EXTREMETIES Musculoskeletal/Extremeties: WAIJEFFREY - NEURO Level of Consciousness: Awake, Alert, Appropriate Motor/Sensory: No Motor Deficit - DERM Integumentary: Warm, Dry, No Rash Course - Re-evaluation Re-evalutation: 11/08/19 09:54 28-year-old female that presents emergency department with complaints of body aches and pain since 3:00 this morning. Reports symptoms woke her up denies fever vomiting diarrhea denies pain with void. Did not receive the flu vaccine. She denies recent extreme exercise or workout. She reports she takes care of her 6 kids at home. Does not work. Her flu test was negative. She received ibuprofen. She also received Gatorade. She is drinking p.o. fluids without problems. She was instructed to continue pushing fluids good handwashing ibuprofen as indicated and follow-up with her primary care provider for concerns or return here. She verbalized understanding to all instructions Laboratory 11/08/19 09:15 Influenza A (Rapid) NEGATIVE Influenza B (Rapid) NEGATIVE - Vital Signs Vital signs: Temp Pulse Resp BP Pulse Ox 99.0 F 107 H 20 144/84 H 99 11/08/19 08:52 11/08/19 08:52 11/08/19 08:52 11/08/19 08:52 11/08/19 08:52 Discharge - Discharge Clinical Impression: Generalized body aches Condition: Stable Disposition: HOME, SELF-CARE Instructions: Use of Xads-Eup-Htvkkpi Ibuprofen ([facility]) Additional Instructions: *You have been evaluated for flulike symptoms, body aches headache *Your flu test was negative *Increase fluid intake as discussed *Wash your hands! *Monitor your temperature, take Tylenol or ibuprofen as indicated *Follow up with a primary care provider within 5 days for recheck *Return to ED for worsening condition, changes, needs, concerns Monitor your blood pressure. Your blood pressure was elevated today. This may be because you were anxious, in pain or because you need medication. It is important to follow up with your primary care provider for full evaluation. Forms: Elevated Blood Pressure
[2019-11-08 09:46] LABS: A TYPE INFLUENZA AG NEGATIVE (NEGATIVE); B INFLUENZA AG NEGATIVE (NEGATIVE)
== END 2019-11-08 09:57 | disposition home or self-care (01) ==
LOC: ER 08:48
DX: R51 Headache (principal); M79.10 Myalgia, unspecified site; R61 Generalized hyperhidrosis; I10 Essential (primary) hypertension; F17.210 Nicotine dependence, cigarettes, uncomplicated; J45.909 Unspecified asthma, uncomplicated; Z86.69 Personal history of other diseases of the nervous system and sense organs
CPT/HCPCS: 99283; 87804; J3490